=== PATIENT | female | born 1970 | race Caucasian/White ===

== ENCOUNTER 2020-07-03 13:46 | Outpatient (REF) | payer OTHER, SELFPAY | END 2020-07-03 13:47 | disposition home or self-care (01) | LOC: HO.LAB 13:46 | PROVIDERS: Visit Provider Internal Medicine | DX: Z20.828 Contact with and (suspected) exposure to other viral communicable diseases (principal) | CPT/HCPCS: U0003 ==

== ENCOUNTER 2020-09-25 14:34 | Outpatient (REF) | payer OTHER, SELFPAY ==
--- NOTE | 2020-09-25 15:41 | XR_ITS ---
EXAMINATION: BILATERAL KNEE X-RAY CLINICAL INFORMATION: Bilateral arthritis COMPARISON: Previous x-ray February 2019 TECHNIQUE: 4 views each knee FINDINGS: Right: Bone alignment is normal. No fracture or dislocation is seen. There is arthritis at the femoral tibial and patellofemoral joints with joint space narrowing and osteophyte formation. There is lateral subluxation of the patella on the sunrise view. There is a small joint effusion. Left: Bone alignment is normal. No fracture or dislocation is seen. There is arthritis at the femoral tibial and patellofemoral joints with joint space narrowing and osteophyte formation. There is some lateral subluxation of the patella on the sunrise view. There is a joint effusion. XR/XR knee RT 3V IMPRESSION: Bilateral arthritis.
--- NOTE | 2020-09-25 15:41 | XR_ITS ---
EXAMINATION: BILATERAL KNEE X-RAY CLINICAL INFORMATION: Bilateral arthritis COMPARISON: Previous x-ray February 2019 TECHNIQUE: 4 views each knee FINDINGS: Right: Bone alignment is normal. No fracture or dislocation is seen. There is arthritis at the femoral tibial and patellofemoral joints with joint space narrowing and osteophyte formation. There is lateral subluxation of the patella on the sunrise view. There is a small joint effusion. Left: Bone alignment is normal. No fracture or dislocation is seen. There is arthritis at the femoral tibial and patellofemoral joints with joint space narrowing and osteophyte formation. There is some lateral subluxation of the patella on the sunrise view. There is a joint effusion. XR/XR knee LT 3V IMPRESSION: Bilateral arthritis.
[2020-09-25 15:59] LABS: Basophils Absolute Auto 0.1 X10*3/uL (0.0-0.2); Basophils Percent Auto 0.9 % (0-2); Eosinophils Absolute Auto 0.5 X10*3/uL (0.0-0.4); Hematocrit 38.2 % (37-47); Hemoglobin 12.1 g/dl (12.0-16.0); Imm Gran Abs Auto 0.01 X10*3/uL (0.00-0.03); Imm Gran Pct Auto 0.1 % (0.0-0.4); Immature Retic Fraction 12.6 % (3.0-15.9); Lymphocytes Percent Auto 26.5 % (20-40); MANUAL DIFF FLAG NO; Mean Corpuscular HGB Conc 31.7 g/dl (31.0-35.0); Mean Corpuscular Hemoglobin 28.8 pg (27.0-33.0); Mean Platelet Volume 9.5 fL (9.4-12.3); Monocytes Absolute Auto 0.6 X10*3/uL (0.1-1.2); Monocytes Percent Auto 7.7 % (2-11); Neutrophils Absolute Auto 4.4 X10*3/uL (2.0-8.3); Neutrophils Percent Auto 57.8 % (45-73); Platelet Count 356 X10*3/uL (160-400); Red Cell Distribution Width 15.2 % (11.0-16.0); Retic HGB Equivalent 35.2 pg (30.0-35.0); Reticulocyte Percent 1.5 % (0.5-1.8); Reticulocytes Absolute 0.063 X10*6/uL (0.026-0.095); White Blood Count 7.6 X10*3/uL (4.8-10.8)
[2020-09-25 16:28] LABS: Alanine Aminotransferase 24 U/L (0-31); Albumin Level 4.3 g/dL (3.5-5.0); Alkaline Phosphatase 89 U/L (39-117); Anion Gap 14 (12-20); Aspartate Amino Transferase 30 U/L (5-31); Bilirubin Total 0.4 mg/dL (0.0-1.0); Blood Urea Nitrogen 11 mg/dL (9-16); Carbon Dioxide 27 mmol/L (22-29); Chloride 106 mmol/L (96-108); Cholesterol 229 mg/dL; Estimated Glomerular Filt Rate > 60; Glucose Random 86 mg/dL (60-115); HDL Cholesterol 94 mg/dL; Iron 74 mcg/dL (30-160); LDL Cholesterol Calculated 112 mg/dl; Percent Iron Saturation 15 % (15-50); Potassium 4.7 mmol/l (3.3-5.1); Sodium 142 mmol/L (135-145); Total Iron Binding Capacity 494 mcg/dL (228-428); Total Protein 7.6 g/dL (6.5-8.0); Triglycerides 119 mg/dL; Unsaturated Iron Binding 420 ug/dL
[2020-09-25 16:44] LABS: Ferritin 27 ng/mL (10-250); Free T4 (Free Thyroxine) 0.74 ng/dL (0.71-1.85); Thyroid Stimulating Hormone 0.89 uIU/mL (0.32-4.0); Vitamin D 25-OH Total 12.2 ng/mL (>30)
[2020-09-25 17:04] LABS: Folate 14.5 ng/mL (> or = 4.0); Vitamin B12 219 pg/mL (200-900)
[2020-09-28 06:57] LABS: HPV mRNA E6/E7 rflx Not Detected (Not Detected)
== END 2020-09-25 14:35 | disposition home or self-care (01) ==
LOC: HO.LAB 14:34
PROVIDERS: Absent Provider Internal Medicine; PCP Internal Medicine; Visit Provider Obstetrics & Gynecology
DX: Z01.419 Encounter for gynecological examination (general) (routine) without abnormal findings (principal); N91.2 Amenorrhea, unspecified; M25.562 Pain in left knee; M25.561 Pain in right knee
CPT/HCPCS: 36415; 73562; 80053; 80061; 81025; 82306; 82607; 82728; 82746; 83540; 84439; 84443; 85025; 85045; 87624; 88142

== ENCOUNTER → 2020-10-09 11:32 | Outpatient (BNVA) | payer OTHER, SELFPAY | PROVIDERS: PCP Internal Medicine; Visit Provider Obstetrics & Gynecology ==

== ENCOUNTER 2020-10-24 06:20 | Inpatient (IN) | payer OTHER, SELFPAY ==
[2020-10-24] VITALS (8 sets, daily range): BP systolic 111–150; BP diastolic 57–93; PULSE 80–99; RESP 12–22; TEMP 36.6–37; O2SAT 94–99; BMI 50.8
--- NOTE | 2020-10-24 | ECG_ITS ---
Test Reason : OD/SI Blood Pressure : / mmHG Vent. Rate : 096 BPM Atrial Rate : 096 BPM P-R Int : 150 ms QRS Dur : 092 ms QT Int : 358 ms P-R-T Axes : 051 005 036 degrees QTc Int : 452 ms Normal sinus rhythm Normal ECG When compared with ECG of 13-FEB-2020 16:54, No significant change was found Referred By: José Reagan Electronically Signed By:VINH BROOKS MD
[2020-10-24 06:51] LABS: MANUAL DIFF FLAG NO
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
[2020-10-24 06:53] LABS: Basophils Percent Auto 0.7 % (0-2); Eosinophils Absolute Auto 0.3 X10*3/uL (0.0-0.4); Hematocrit 36.3 % (37-47); Hemoglobin 11.8 g/dl (12.0-16.0); Imm Gran Abs Auto 0.01 X10*3/uL (0.00-0.03); Imm Gran Pct Auto 0.2 % (0.0-0.4); Lymphocytes Absolute Auto 3.3 X10*3/uL (1.2-4.9); Lymphocytes Percent Auto 53.6 % (20-40); Mean Corpuscular HGB Conc 32.5 g/dl (31.0-35.0); Mean Corpuscular Hemoglobin 28.9 pg (27.0-33.0); Mean Corpuscular Volume 88.8 fL (80-98); Mean Platelet Volume 8.9 fL (9.4-12.3); Monocytes Absolute Auto 0.7 X10*3/uL (0.1-1.2); Monocytes Percent Auto 10.6 % (2-11); Neutrophils Absolute Auto 1.8 X10*3/uL (2.0-8.3); Neutrophils Percent Auto 29.9 % (45-73); Platelet Count 310 X10*3/uL (160-400); Red Blood Count 4.09 X10*6/uL (4.20-5.50); White Blood Count 6.1 X10*3/uL (4.8-10.8)
--- NOTE | 2020-10-24 06:57 | PC.NURSE ---
PHONE CALL PLACED TO POISION CONTROL AT [phone], ALICIA RIVERA PROVIDE SUPPORTIVE CARE AND MONITOR FOR 6-8 HRS. IF LABS ARE NORMAL NO NEED TO REPEAT LABS/EKG.
[2020-10-24 07:20] LABS: Ethanol 271 mg/dL
[2020-10-24 07:28] LABS: Acetaminophen LAB 9 mcg/mL (<30); Alanine Aminotransferase 24 U/L (0-31); Albumin Level 3.9 g/dL (3.5-5.0); Alkaline Phosphatase 85 U/L (39-117); Anion Gap 15 (12-20); Aspartate Amino Transferase 33 U/L (5-31); Bilirubin Direct < 0.2 mg/dL (0.0-0.5); Bilirubin Total 0.3 mg/dL (0.0-1.0); Blood Urea Nitrogen 11 mg/dL (9-16); Calcium 8.3 mg/dL (8.4-10.2); Carbon Dioxide 22 mmol/L (22-29); Chloride 106 mmol/L (96-108); Estimated Glomerular Filt Rate > 60; Glucose Random 93 mg/dL (60-115); Potassium 4.2 mmol/L (3.3-5.1); Sodium 139 mmol/L (135-145); Total Protein 7.1 g/dL (6.5-8.0)
[2020-10-24 07:40] LABS: Salicylate < 5.0 mg/dL (15-30)
--- NOTE | 2020-10-24 08:54 | PC.NURSE ---
PAPERWORK FAXED/CALLED TO [facility] ([facility]), THIS RN SPOKE TO MATT.
--- NOTE | 2020-10-24 10:54 | PC.NURSE ---
sharath from poison control ([phone]) called [facility] for an update on pt status and states that pt has 3hrs left for eval. pt is a/o x 3 no sob/salomon noted skin pink warm dry speaks in full sentences. amb (i) gait steady to bathroom and btb
[2020-10-24 11:05] LABS: UPreg QC Valid YES; Urine Pregnancy NEGATIVE (NEGATIVE)
[2020-10-24 11:28] LABS: Amphetamine Screen Urine Not Detected (Not Detect); Barbiturates, Urine Not Detected (Not Detect); Benzodiazepines Screen Urine Not Detected (Not Detect); Cannabinoid Screen Urine Not Detected (Not Detect); Cocaine Screen Urine Not Detected (Not Detect); Opiate Screen Urine Not Detected (Not Detect); Phencyclidine Screen Urine Not Detected (Not Detect)
--- NOTE | 2020-10-24 15:21 | PC.NURSE ---
this rn reached out to [facility] spoke with jero ([facility], [phone]) hopefully [facility] will be there at 1600 to see pt. crane (nurse manager marketing communications aware).
[2020-10-25] MEDS: Albuterol Sulfate 90 MCG 8 GM INHALER 2 PUFF INHALE (02:18)
[2020-10-25 02:19] VITALS: PULSE 96; RESP 20; O2SAT 98
[2020-10-25 04:57] LABS: COVID-19 Test Negative (Negative)
[2020-10-25 07:13] VITALS: BP 138/81; PULSE 98; RESP 18; O2SAT 97
--- NOTE | 2020-10-25 08:05 | PC.NURSE ---
Pt is alert, rr even, speaks in full sentences, skin is pwdi, and she is in nad. Plan remains inpt bed search, with a possibility of admission to today.
[2020-10-25 14:40] VITALS: BP 163/9; PULSE 84; RESP 17; O2SAT 97
--- NOTE | 2020-10-25 18:55 | PC.NURSE ---
Report given to Shree in M5.
[2020-10-25] MEDS: hydrOXYzine HCL 25 MG TABLET PO (21:06)
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
[2020-10-25 23:13] VITALS: BP 160/91; PULSE 111; TEMP 37
[2020-10-26] VITALS (7 sets, daily range): BP systolic 129–194; BP diastolic 81–100; PULSE 82–106; RESP 18; TEMP 36.3–36.5; O2SAT 98
[2020-10-26] MEDS: traZODone HCL 50 MG TABLET PO (03:44)
[2020-10-26] MEDS: LORazepam 1 MG TABLET PO ×6 (07:18→21:46)
[2020-10-26] MEDS: Folic Acid 1 MG TABLET PO (08:37)
[2020-10-26] MEDS: medroxyPROGESTERone Acetate 5 MG TABLET 10 MG PO (08:38)
[2020-10-26] MEDS: Multivitamin TABLET 1 TAB PO (08:38)
[2020-10-26] MEDS: Gabapentin 100 MG CAPSULE PO ×4 (08:38→21:46)
[2020-10-26] MEDS: Thiamine HCL 100 MG TABLET PO (08:38)
[2020-10-26] MEDS: Ferrous Sulfate 324 MG TABLET.DR PO (08:55)
[2020-10-26] MEDS: traMADoL HCL 50 MG TABLET PO (08:55)
[2020-10-26] MEDS: Fluticasone/Vilanterol 200/25 BLST.W.DEV 1 PUFF INHALE (09:47)
--- NOTE | 2020-10-26 18:06 | HO.PSYADMNOT ---
HPI Chief Complaint: SI Sources of Information: patient interviewed, chart reviewed and crisis/core team assessment reviewed HPI Subjective Notes: Conditional Voluntary Narrative: Ms. Recio is a 50 year-old woman with hx of MDD who presented to [facility] ED after a suicide attempt on tramadol (unclear dose). Pt reports that she has been experiencing increased depression since July of last year when she from her , her son had major medical problems (unable to walk and apparently dx still unclear), increased stress from work and increase alcohol use. In the ED, her utox was negative. Her BAL was 271. Ms. Recio reports she has struggled with depression for several years. She currently does not have outpatient psychiatric providers. She was prescribed by her PCP Celexa 10mg po daily on July, dose was not adjusted and she just recently started to see OP psychotherapist. She denies hx of VH/AH. She reports poor sleep. She endorses depressed mood, anhedonia, anxious mood. Past Psychiatric History: Inpatient: none previous OP: none currently Past medication trials: celexa, clonidine, trazodone, ativan. Medical Evaluation Reviewed: Yes [facility] Medical History Anemia Anxiety and depression Benign essential hypertension Morbid obesity with BMI of 50.0-59.9, adult Obstructive sleep apnea Osteoarthritis of knees, bilateral Peripheral vascular disease Vitamin D deficiency Surgical History H/O gastric bypass History of breast lift History of section History of cholecystectomy Family History: None Social History: Pt remarried. She has two adult sons. Substance History: Alcohol: drinking 4-6 8onz beers every other day for the past 4-5 months.Pt denies any other substance use including cocaine, opiates, amphetamines. Diagnostics Vital Signs (24Hr): Vital Signs - 24 hr 10/25/20 23:13 10/26/20 06:00 10/26/20 07:18 Temperature 98.6 F 97.7 F Pulse Rate 111 H 84 84 Respiratory Rate 18 Blood Pressure 160/91 H 194/96 H 188/100 H Pulse Oximetry 98 10/26/20 08:28 10/26/20 11:08 Temperature Pulse Rate 91 101 H Respiratory Rate Blood Pressure 179/94 H 129/81 Pulse Oximetry Body Mass Index 50.8 Labs Results: 10/24/20 06:47 10/24/20 06:48 Labs: Laboratory Results - last 48 hr 10/25/20 04:39 COVID-19 ([facility]) Negative COVID-19 Clin Com See Note Meds/Allergies Meds Home Medications Acetaminophen (Acetaminophen 325 Mg Tablet) 650 mg PO Q6H PRN PRN Reason: Headache/Pain Mild Scale (1-3) Last Admin: 10/26/20 21:10 Dose: 650 mg Documented by: Al Hydroxide/Mg Hydroxide (Magnesium Hydrox/Alum Hydrox 30 Ml Oral.Susp) 30 ml PO Q6H PRN PRN Reason: Heartburn/Nausea Albuterol Sulfate (Albuterol Sulfate 90 Mcg 8 Gm Inhaler) 2 puff INHALE Q6H PRN PRN Reason: Wheezing Escitalopram Oxalate (Escitalopram Oxalate 20 Mg Tablet) 20 mg PO DAILY [facility] Last Admin: 10/27/20 08:48 Dose: 20 mg Documented by: Ferrous Sulfate (Ferrous Sulfate 324 Mg Tablet.Dr) 324 mg PO DAILY [facility] Last Admin: 10/27/20 08:48 Dose: 324 mg Documented by: Fluticasone/Vilanterol (Fluticasone/Vilanterol 200/25 Blst.W.Dev) 1 puff INHALE RDAILY [facility] Last Admin: 10/27/20 08:55 Dose: 1 puff Documented by: Folic Acid (Folic Acid 1 Mg Tablet) 1 mg PO DAILY [facility] Last Admin: 10/27/20 08:48 Dose: 1 mg Documented by: Gabapentin (Gabapentin 100 Mg Capsule) 200 mg PO TID [facility] Last Admin: 10/27/20 08:47 Dose: 200 mg Documented by: Hydroxyzine HCl (Hydroxyzine Hcl 25 Mg Tablet) 25 mg PO BEDTIME PRN PRN Reason: Anxiety Last Admin: 10/25/20 21:06 Dose: 25 mg Documented by: Lisinopril (Lisinopril 20 Mg Tablet) 20 mg PO DAILY [facility]; Protocol Last Admin: 10/27/20 08:48 Dose: 20 mg Documented by: Lorazepam (Lorazepam 1 Mg Tablet) 1 mg PO Q4H PRN PRN Reason: Alcohol Withdrawal Last Admin: 10/27/20 04:43 Dose: 1 mg Documented by: Lorazepam (Lorazepam 1 Mg Tablet) 2 mg PO TID [facility] Last Admin: 10/27/20 08:48 Dose: 2 mg Documented by: Magnesium Hydroxide (Milk Of Magnesia 30 Ml Oral.Susp) 30 ml PO DAILY PRN PRN Reason: Constipation Medroxyprogesterone Acetate (Medroxyprogesterone Acetate 5 Mg Tablet) 10 mg PO DAILY [facility] Last Admin: 10/27/20 08:48 Dose: 10 mg Documented by: Melatonin (Melatonin 3 Mg Tablet) 6 mg PO BEDTIME [facility] Last Admin: 10/26/20 21:10 Dose: 6 mg Documented by: Multivitamins/Vitamin C (Multivitamin Tablet) 1 tab PO DAILY [facility] Last Admin: 10/27/20 08:48 Dose: 1 tab Documented by: Thiamine HCl (Thiamine Hcl 100 Mg Tablet) 100 mg PO DAILY [facility] Last Admin: 10/27/20 08:48 Dose: 100 mg Documented by: Tramadol HCl (Tramadol Hcl 50 Mg Tablet) 50 mg PO TID PRN PRN Reason: pain Last Admin: 10/27/20 04:43 Dose: 50 mg Documented by: Trazodone HCl (Trazodone Hcl 50 Mg Tablet) 50 mg PO BEDTIME PRN PRN Reason: Insomnia Last Admin: 10/26/20 03:44 Dose: 50 mg Documented by: Allergies Allergies Allergy/AdvReac Type Severity Reaction Status Date / Time hydromorphone Allergy Unknown Hives Verified 10/09/20 11:34 piperacillin Allergy Unknown hives Verified 10/09/20 11:34 Mental Status Exam Mental Status Exam Narrative: Appearance: casually groomed, fair hygiene, tearful, in NAD Behavior: cooperative Psychomotor: no agitation or retardation noted Speech: clear, normal rate/rhythm/volume, spontaneous TP: linear TC: no signs of psychosis, hopeless/helpless, passive SI Mood: depressed Affect: blunted Insight/judgment: fair x 2. AH/VH: none Delusions: none SI: passive, denies plan or intent HI: none Memory/cog: alert, oriented x 3. grossly intact to conversational testing. Assessment & Plan Assessment & Plan (1) MDD (major depressive disorder), recurrent episode, severe: Status: Acute Qualifiers: Psychotic features: without psychotic features Qualified Code(s): F33.2 - Major depressive disorder, recurrent severe without psychotic features Code(s): F33.2 - Major depressive disorder, recurrent severe without psychotic features Assessment and Plan: 1. In hospital, pt switched to lexapro as celexa is not part of formulary. Will Start Lexapro 10mg po daily, which is equivalent to Celexa 20mg po daily. 2. Obtain collateral information 3. Participate in milieu (2) Alcohol abuse: Status: Acute Code(s): F10.10 - Alcohol abuse, uncomplicated Assessment and Plan: we discussed medications to decrease alcohol cravings. Pt thinkins about it. Patient educated on: diagnosis, medication risk/benefits, substance abuse and medical condition Informed Consent: understands Reason for continued inpatient stay Substantial Risk for: harm to self
[2020-10-26] MEDS: Melatonin 3 MG TABLET 6 MG PO (21:10)
[2020-10-26] MEDS: Acetaminophen 325 MG TABLET 650 MG PO (21:10)
--- NOTE | 2020-10-26 21:33 | PC.NURSE ---
Patient's BP was rechecked before giving HS medications. BP was 174/93 with a pulse of 83 on right upper arm with patient in supine position. Dr. Riggs was notified. New orders were placed. Ativan 1 mg po x 1 now and Gabapentin 100 mg po x 1 now were ordered; scheduled Ativan will be 2 mg tid and Gabapentin will be 200 mg po tid, Lisinopril increased to 15 mg po daily. Will continue to monitor vitals.
[2020-10-27 04:42] VITALS: BP 192/108; PULSE 94
[2020-10-27] MEDS: traMADoL HCL 50 MG TABLET PO ×2 (04:43→16:56)
[2020-10-27] MEDS: LORazepam 1 MG TABLET PO (04:43)
[2020-10-27 06:00] VITALS: BP 166/96; PULSE 99; TEMP 36.9
--- NOTE | 2020-10-27 07:37 | HO.PSYCHPN ---
Subjective Subjective Date of Service: 10/27/20 Reason For Visit: SI Interim History: VS noted for elevated BP. Tremors. Sx of ETOH WD noted. Will increase Loraz /Gabapentin and Lisinopril. Ct q4 while awake. No SI Medication Compliance: Yes Side effects from medications: No Attending Groups: Yes Review of Systems Constitutional: Reports no additional constitutional complaints Eyes: Reports no additional eye complaints Denies dizziness Cardiovascular: Reports no additional cardiovascular complaints, Denies chest pain, Denies chest pain with activity, Denies epigastric discomfort, Denies edema and Denies dyspnea Respiratory: Reports as per HPI and Denies dyspnea Gastrointestinal: Reports no additional gastrointestinal complaints, Denies constipation, Denies fecal incontinence and Denies diarrhea Musculoskeletal: Reports no additional musculoskeletal complaints Skin/Breast: Denies rash Reports system reviewed and no additional complaints, except as documented, Denies dizziness and Denies Sensory deficit (Neuro) Psychiatric: Denies anxiety Mental Status Exam Mental Status Exam Narrative: Appearance: casually groomed, fair hygiene, tearful, in NAD Behavior: cooperative Psychomotor: no agitation or retardation noted Speech: clear, normal rate/rhythm/volume, spontaneous TP: linear TC: no signs of psychosis, hopeless/helpless, passive SI Mood: depressed Affect: blunted Insight/judgment: fair x 2. AH/VH: none Delusions: none SI: passive, denies plan or intent HI: none Memory/cog: alert, oriented x 3. grossly intact to conversational testing. Patient Appearance: Well Grooomed Abnormal Motor Activity Signs and Symptoms: Agitation and Tremors Judgement: Fair Diagnostics Vital Signs (24Hr): Vital Signs - 24 hr 10/26/20 08:28 10/26/20 11:08 10/26/20 18:00 Temperature 97.4 F Pulse Rate 91 101 H 106 H Blood Pressure 179/94 H 129/81 142/86 H 10/26/20 20:58 10/26/20 22:22 10/27/20 04:42 Temperature Pulse Rate 83 82 94 Blood Pressure 174/92 H 171/85 H 192/108 H 10/27/20 06:00 Temperature 98.4 F Pulse Rate 99 Blood Pressure 166/96 H Body Mass Index 50.8 Labs Results: 10/24/20 06:47 10/24/20 06:48 Medications Medications Current Medications Generic Name Dose Route Start Last Admin Trade Name Freq PRN Reason Stop Dose Admin Acetaminophen 650 mg 10/25/20 19:12 10/26/20 21:10 Acetaminophen 325 Mg Tablet PO 650 mg Q6H PRN Administration Headache/Pain Mild Scale (1-3) Al Hydroxide/Mg Hydroxide 30 ml 10/25/20 19:12 Magnesium Hydrox/Alum Hydrox 30 Ml Oral.Susp PO Q6H PRN Heartburn/Nausea Albuterol Sulfate 2 puff 10/25/20 20:17 Albuterol Sulfate 90 Mcg 8 Gm Inhaler INHALE Q6H PRN Wheezing Escitalopram Oxalate 20 mg 10/27/20 09:00 Escitalopram Oxalate 20 Mg Tablet PO DAILY [facility] Ferrous Sulfate 324 mg 10/26/20 09:00 10/26/20 08:55 Ferrous Sulfate 324 Mg Tablet.Dr PO 324 mg DAILY [facility] Administration Fluticasone/Vilanterol 1 puff 10/26/20 08:00 10/26/20 09:47 Fluticasone/Vilanterol 200/25 Blst.W.Dev INHALE 1 puff RDAILY [facility] Administration Folic Acid 1 mg 10/26/20 09:00 10/26/20 08:37 Folic Acid 1 Mg Tablet PO 1 mg DAILY [facility] Administration Gabapentin 200 mg 10/26/20 21:15 10/26/20 21:50 Gabapentin 100 Mg Capsule PO Not Given TID [facility]UAN Hydroxyzine HCl 25 mg 10/25/20 19:12 10/25/20 21:06 Hydroxyzine Hcl 25 Mg Tablet PO 25 mg BEDTIME PRN Administration Anxiety Lisinopril 15 mg 10/27/20 09:00 10/27/20 04:42 Lisinopril 5 Mg Tablet PO 15 mg DAILY [facility] Administration Protocol Lorazepam 1 mg 10/26/20 06:59 10/27/20 04:43 Lorazepam 1 Mg Tablet PO 1 mg Q4H PRN Administration Alcohol Withdrawal Lorazepam 2 mg 10/26/20 21:15 10/26/20 21:51 Lorazepam 1 Mg Tablet PO Not Given TID [facility] Magnesium Hydroxide 30 ml 10/25/20 19:12 Milk Of Magnesia 30 Ml Oral.Susp PO DAILY PRN Constipation Medroxyprogesterone Acetate 10 mg 10/26/20 09:00 10/26/20 08:38 Medroxyprogesterone Acetate 5 Mg Tablet PO 10 mg DAILY [facility] Administration Melatonin 6 mg 10/26/20 21:00 10/26/20 21:10 Melatonin 3 Mg Tablet PO 6 mg BEDTIME [facility] Administration Multivitamins/Vitamin C 1 tab 10/26/20 09:00 10/26/20 08:38 Multivitamin Tablet PO 1 tab DAILY [facility] Administration Thiamine HCl 100 mg 10/26/20 07:00 10/26/20 08:47 Thiamine Hcl 100 Mg Tablet PO Not Given DAILY [facility] Tramadol HCl 50 mg 10/26/20 07:05 10/27/20 04:43 Tramadol Hcl 50 Mg Tablet PO 50 mg TID PRN Administration pain Trazodone HCl 50 mg 10/25/20 19:12 10/26/20 03:44 Trazodone Hcl 50 Mg Tablet PO 50 mg BEDTIME PRN Administration Insomnia Allergies Allergies Allergy/AdvReac Type Severity Reaction Status Date / Time hydromorphone Allergy Unknown Hives Verified 10/09/20 11:34 piperacillin Allergy Unknown hives Verified 10/09/20 11:34 Assessment & Plan Assessment & Plan (1) MDD (major depressive disorder), recurrent episode, severe: Qualifiers: Psychotic features: without psychotic features Qualified Code(s): F33.2 - Major depressive disorder, recurrent severe without psychotic features Status: Acute Code(s): F33.2 - Major depressive disorder, recurrent severe without psychotic features Assessment and Plan: 1. In hospital, pt switched to lexapro as celexa is not part of formulary. Will Start Lexapro 10mg po daily, which is equivalent to Celexa 20mg po daily. 2. Obtain collateral information 3. Participate in milieu (2) Alcohol abuse: Status: Acute Code(s): F10.10 - Alcohol abuse, uncomplicated Assessment and Plan: we discussed medications to decrease alcohol cravings. Pt thinkins about it. Continue Lorz/Gabapentin. Monitor WD Sx Greater than 50% of the session was spent on counseling and/or coordination of care Reason for contiued inpatient stay Substantial Risk for: harm to self and med/psych decompensation
[2020-10-27] MEDS: Gabapentin 100 MG CAPSULE 200 MG PO ×3 (08:47→21:47)
[2020-10-27] MEDS: Folic Acid 1 MG TABLET PO (08:48)
[2020-10-27] MEDS: Thiamine HCL 100 MG TABLET PO (08:48)
[2020-10-27] MEDS: medroxyPROGESTERone Acetate 5 MG TABLET 10 MG PO (08:48)
[2020-10-27] MEDS: Multivitamin TABLET 1 TAB PO (08:48)
[2020-10-27] MEDS: LORazepam 1 MG TABLET 2 MG PO ×3 (08:48→21:48)
[2020-10-27] MEDS: Escitalopram Oxalate 20 MG TABLET PO (08:48)
[2020-10-27] MEDS: Ferrous Sulfate 324 MG TABLET.DR PO (08:48)
[2020-10-27] MEDS: Fluticasone/Vilanterol 200/25 BLST.W.DEV 1 PUFF INHALE (08:55)
[2020-10-27 17:02] VITALS: BP 142/78; PULSE 83; O2SAT 98
[2020-10-27] MEDS: Melatonin 3 MG TABLET 6 MG PO (21:48)
[2020-10-27] MEDS: Acetaminophen 325 MG TABLET 650 MG PO (21:52)
[2020-10-28 05:24] VITALS: BP 164/94; PULSE 98
[2020-10-28] MEDS: LORazepam 1 MG TABLET PO (05:24)
[2020-10-28] MEDS: traMADoL HCL 50 MG TABLET PO (05:24)
[2020-10-28 06:30] VITALS: BP 164/94; PULSE 98; RESP 18; TEMP 36.2; O2SAT 98
[2020-10-28 06:40] VITALS: BP 159/95; PULSE 91; RESP 18; O2SAT 96
[2020-10-28] MEDS: medroxyPROGESTERone Acetate 5 MG TABLET 10 MG PO (08:38)
[2020-10-28] MEDS: Gabapentin 100 MG CAPSULE 200 MG PO ×3 (08:38→20:07)
[2020-10-28] MEDS: LORazepam 1 MG TABLET 2 MG PO ×3 (08:38→20:07)
[2020-10-28] MEDS: Folic Acid 1 MG TABLET PO (08:38)
[2020-10-28] MEDS: Fluticasone/Vilanterol 200/25 BLST.W.DEV 1 PUFF INHALE (08:38)
[2020-10-28] MEDS: Escitalopram Oxalate 20 MG TABLET PO (08:38)
[2020-10-28] MEDS: Multivitamin TABLET 1 TAB PO (08:39)
[2020-10-28] MEDS: Thiamine HCL 100 MG TABLET PO (08:39)
[2020-10-28] MEDS: Metoprolol Tartrate 25 MG TABLET PO ×2 (08:39→20:07)
[2020-10-28] MEDS: Ferrous Sulfate 324 MG TABLET.DR PO (08:39)
--- NOTE | 2020-10-28 10:44 | P.PNPSI_ITS ---
Subjective Subjective Date of Service: 10/28/20 Reason For Visit: SI Interim History: 10/28: Patient continues to be depressed tearful stated that she is overwhelmed with stressors at work with her son and also going through a separation. No SI as she feels safe here. Continues to exhibit tremors elevated vitals noted. Case discussed with Dr. Reagan. We agreed to add beta- rachana and monitor. Patient would benefit from a diuretic. Need for beta- rachana should be reviewed after patient completes alcohol withdrawal. 10/27: VS noted for elevated BP. Tremors. Sx of ETOH WD noted. Will increase Loraz /Gabapentin and Lisinopril. Ct q4 while awake. No SI Review of Systems Constitutional: Reports no additional constitutional complaints Eyes: Reports no additional eye complaints Denies dizziness Cardiovascular: Reports no additional cardiovascular complaints, Denies chest pain, Denies chest pain with activity, Denies epigastric discomfort, Denies edema and Denies dyspnea Respiratory: Reports as per HPI and Denies dyspnea Gastrointestinal: Reports no additional gastrointestinal complaints, Denies constipation, Denies fecal incontinence and Denies diarrhea Musculoskeletal: Reports no additional musculoskeletal complaints Skin/Breast: Denies rash Reports system reviewed and no additional complaints, except as documented, Denies dizziness and Denies Sensory deficit (Neuro) Psychiatric: Denies anxiety Mental Status Exam Mental Status Exam Narrative: Appearance: casually groomed, fair hygiene, tearful, in NAD Behavior: cooperative Psychomotor: no agitation or retardation noted Speech: clear, normal rate/rhythm/volume, spontaneous TP: linear TC: no signs of psychosis, hopeless/helpless, passive SI Mood: depressed Affect: blunted Insight/judgment: fair x 2. AH/VH: none Delusions: none SI: passive, denies plan or intent HI: none Memory/cog: alert, oriented x 3. grossly intact to conversational testing. Patient Appearance: Well Grooomed Diagnostics Vital Signs (24Hr): Vital Signs - 24 hr 10/27/20 17:02 10/28/20 05:24 10/28/20 06:30 Temperature 97.2 F Pulse Rate 83 98 98 Respiratory Rate 18 Blood Pressure 142/78 H 164/94 H 164/94 H Pulse Oximetry 98 98 10/28/20 06:40 Temperature Pulse Rate 91 Respiratory Rate 18 Blood Pressure 159/95 H Pulse Oximetry 96 Body Mass Index 50.8 Labs Results: 10/24/20 06:47 10/24/20 06:48 Medications Medications Current Medications Generic Name Dose Route Start Last Admin Trade Name Freq PRN Reason Stop Dose Admin Acetaminophen 650 mg 10/25/20 19:12 10/27/20 21:52 Acetaminophen 325 Mg Tablet PO 650 mg Q6H PRN Administration Headache/Pain Mild Scale (1-3) Al Hydroxide/Mg Hydroxide 30 ml 10/25/20 19:12 Magnesium Hydrox/Alum Hydrox 30 Ml Oral.Susp PO Q6H PRN Heartburn/Nausea Albuterol Sulfate 2 puff 10/25/20 20:17 Albuterol Sulfate 90 Mcg 8 Gm Inhaler INHALE Q6H PRN Wheezing Escitalopram Oxalate 20 mg 10/27/20 09:00 10/28/20 08:38 Escitalopram Oxalate 20 Mg Tablet PO 20 mg DAILY [facility] Administration Ferrous Sulfate 324 mg 10/26/20 09:00 10/28/20 08:39 Ferrous Sulfate 324 Mg Tablet.Dr PO 324 mg DAILY [facility] Administration Fluticasone/Vilanterol 1 puff 10/26/20 08:00 10/28/20 08:38 Fluticasone/Vilanterol 200/25 Blst.W.Dev INHALE 1 puff RDAILY [facility] Administration Folic Acid 1 mg 10/26/20 09:00 10/28/20 08:38 Folic Acid 1 Mg Tablet PO 1 mg DAILY [facility] Administration Gabapentin 200 mg 10/26/20 21:15 10/28/20 08:38 Gabapentin 100 Mg Capsule PO 200 mg TID [facility] Administration Hydroxyzine HCl 25 mg 10/25/20 19:12 10/25/20 21:06 Hydroxyzine Hcl 25 Mg Tablet PO 25 mg BEDTIME PRN Administration Anxiety Lisinopril 20 mg 10/27/20 09:00 10/28/20 05:24 Lisinopril 20 Mg Tablet PO 20 mg DAILY [facility] Administration Protocol Lorazepam 1 mg 10/26/20 06:59 10/28/20 05:24 Lorazepam 1 Mg Tablet PO 1 mg Q4H PRN Administration Alcohol Withdrawal Lorazepam 2 mg 10/26/20 21:15 10/28/20 08:38 Lorazepam 1 Mg Tablet PO 2 mg TID [facility] Administration Magnesium Hydroxide 30 ml 10/25/20 19:12 Milk Of Magnesia 30 Ml Oral.Susp PO DAILY PRN Constipation Medroxyprogesterone Acetate 10 mg 10/26/20 09:00 10/28/20 08:38 Medroxyprogesterone Acetate 5 Mg Tablet PO 10 mg DAILY [facility] Administration Melatonin 6 mg 10/26/20 21:00 10/27/20 21:48 Melatonin 3 Mg Tablet PO 6 mg BEDTIME [facility] Administration Metoprolol Tartrate 25 mg 10/28/20 09:00 10/28/20 08:39 Metoprolol Tartrate 25 Mg Tablet PO 25 mg BID [facility]UAN Administration Protocol Multivitamins/Vitamin C 1 tab 10/26/20 09:00 10/28/20 08:39 Multivitamin Tablet PO 1 tab DAILY [facility] Administration Thiamine HCl 100 mg 10/26/20 07:00 10/28/20 08:39 Thiamine Hcl 100 Mg Tablet PO 100 mg DAILY [facility] Administration Tramadol HCl 50 mg 10/26/20 07:05 10/28/20 05:24 Tramadol Hcl 50 Mg Tablet PO 50 mg TID PRN Administration pain Trazodone HCl 50 mg 10/25/20 19:12 10/26/20 03:44 Trazodone Hcl 50 Mg Tablet PO 50 mg BEDTIME PRN Administration Insomnia Allergies Allergies Allergy/AdvReac Type Severity Reaction Status Date / Time hydromorphone Allergy Unknown Hives Verified 10/09/20 11:34 piperacillin Allergy Unknown hives Verified 10/09/20 11:34 Assessment & Plan Assessment & Plan (1) MDD (major depressive disorder), recurrent episode, severe: Qualifiers: Psychotic features: without psychotic features Qualified Code(s): F33.2 - Major depressive disorder, recurrent severe without psychotic features Status: Acute Code(s): F33.2 - Major depressive disorder, recurrent severe without psychotic features Assessment and Plan: 1. In hospital, pt switched to lexapro as celexa is not part of formulary. Will Start Lexapro 10mg po daily, which is equivalent to Celexa 20mg po daily. 2. Obtain collateral information 3. Participate in milieu (2) Alcohol abuse: Status: Acute Code(s): F10.10 - Alcohol abuse, uncomplicated Assessment and Plan: we discussed medications to decrease alcohol cravings. Pt thinkins about it. Continue Lorz/Gabapentin. Monitor WD Sx. Add metoprolol 25 b.i.d. Greater than 50% of the session was spent on counseling and/or coordination of care Reason for contiued inpatient stay Substantial Risk for: harm to self and med/psych decompensation
[2020-10-28 17:12] VITALS: BP 169/91; PULSE 87; RESP 16; TEMP 36.4; O2SAT 97
[2020-10-28] MEDS: Melatonin 3 MG TABLET 6 MG PO (20:06)
[2020-10-28] MEDS: traZODone HCL 50 MG TABLET PO (20:07)
[2020-10-28] MEDS: hydrOXYzine HCL 25 MG TABLET PO (20:07)
[2020-10-29] VITALS (7 sets, daily range): BP systolic 119–183; BP diastolic 63–90; PULSE 73–99; RESP 18; TEMP 36.5–36.8; O2SAT 92–97
[2020-10-29] MEDS: Metoprolol Tartrate 25 MG TABLET PO ×2 (05:33→22:57)
[2020-10-29] MEDS: LORazepam 1 MG TABLET PO (05:34)
[2020-10-29] MEDS: Multivitamin TABLET 1 TAB PO (08:20)
[2020-10-29] MEDS: Gabapentin 100 MG CAPSULE 200 MG PO ×3 (08:20→22:58)
[2020-10-29] MEDS: Thiamine HCL 100 MG TABLET PO (08:20)
[2020-10-29] MEDS: Folic Acid 1 MG TABLET PO (08:21)
[2020-10-29] MEDS: Ferrous Sulfate 324 MG TABLET.DR PO (08:21)
[2020-10-29] MEDS: Escitalopram Oxalate 20 MG TABLET PO (08:21)
[2020-10-29] MEDS: LORazepam 1 MG TABLET 2 MG PO ×3 (08:21→22:57)
[2020-10-29] MEDS: medroxyPROGESTERone Acetate 5 MG TABLET 10 MG PO (08:21)
--- NOTE | 2020-10-29 17:19 | HO.PSYCHPN ---
Subjective Subjective Date of Service: 10/29/20 Reason For Visit: SI Subjective Notes: Conditional Voluntary Interim History: Pt continues to present as depressed, hopeless/helpless. She continues to endorse passive suicidal ideation but denies any plan or intent to hurt herself. She has been mostly in bed. SHe reports difficulty staying asleep. She continues on ativan for alcohol withdrawal. Medication Compliance: Yes Side effects from medications: No Attending Groups: Intermittent Review of Systems Constitutional: Reports no additional constitutional complaints Eyes: Reports no additional eye complaints Denies dizziness Cardiovascular: Reports no additional cardiovascular complaints, Denies chest pain, Denies chest pain with activity, Denies epigastric discomfort, Denies edema and Denies dyspnea Respiratory: Reports as per HPI and Denies dyspnea Gastrointestinal: Reports no additional gastrointestinal complaints, Denies constipation, Denies fecal incontinence and Denies diarrhea Musculoskeletal: Reports no additional musculoskeletal complaints Skin/Breast: Denies rash Reports system reviewed and no additional complaints, except as documented, Denies dizziness and Denies Sensory deficit (Neuro) Psychiatric: Denies anxiety Mental Status Exam Mental Status Exam Narrative: Appearance: casually groomed, fair hygiene, tearful, in NAD Behavior: cooperative Psychomotor: no agitation or retardation noted Speech: clear, normal rate/rhythm/volume, spontaneous TP: linear TC: no signs of psychosis, hopeless/helpless, passive SI Mood: depressed Affect: blunted Insight/judgment: fair x 2. AH/VH: none Delusions: none SI: passive, denies plan or intent HI: none Memory/cog: alert, oriented x 3. grossly intact to conversational testing. Diagnostics Vital Signs (24Hr): Vital Signs - 24 hr 10/29/20 05:33 10/29/20 05:34 10/29/20 06:30 Temperature 98.0 F Pulse Rate 73 73 74 Respiratory Rate 18 Blood Pressure 183/90 H 183/90 H 134/79 Pulse Oximetry 97 10/29/20 14:41 Temperature Pulse Rate 91 Respiratory Rate Blood Pressure 119/74 Pulse Oximetry 92 Body Mass Index 50.8 Labs Results: 10/24/20 06:47 10/24/20 06:48 Medications Medications Current Medications Generic Name Dose Route Start Last Admin Trade Name Freq PRN Reason Stop Dose Admin Acetaminophen 650 mg 10/25/20 19:12 10/27/20 21:52 Acetaminophen 325 Mg Tablet PO 650 mg Q6H PRN Administration Headache/Pain Mild Scale (1-3) Al Hydroxide/Mg Hydroxide 30 ml 10/25/20 19:12 Magnesium Hydrox/Alum Hydrox 30 Ml Oral.Susp PO Q6H PRN Heartburn/Nausea Albuterol Sulfate 2 puff 10/25/20 20:17 Albuterol Sulfate 90 Mcg 8 Gm Inhaler INHALE Q6H PRN Wheezing Escitalopram Oxalate 20 mg 10/27/20 09:00 10/29/20 08:21 Escitalopram Oxalate 20 Mg Tablet PO 20 mg DAILY JUAN Administration Ferrous Sulfate 324 mg 10/26/20 09:00 10/29/20 08:21 Ferrous Sulfate 324 Mg Tablet. PO 324 mg DAILY JUAN Administration Fluticasone/Vilanterol 1 puff 10/26/20 08:00 10/29/20 08:19 Fluticasone/Vilanterol 200/25 Blst.W.Dev INHALE Not Given RDAILY JUAN Folic Acid 1 mg 10/26/20 09:00 10/29/20 08:21 Folic Acid 1 Mg Tablet PO 1 mg DAILY JUAN Administration Gabapentin 200 mg 10/26/20 21:15 10/29/20 14:39 Gabapentin 100 Mg Capsule PO 200 mg TID JUAN Administration Hydroxyzine HCl 25 mg 10/25/20 19:12 10/28/20 20:07 Hydroxyzine Hcl 25 Mg Tablet PO 25 mg BEDTIME PRN Administration Anxiety Lisinopril 20 mg 10/27/20 09:00 10/29/20 05:34 Lisinopril 20 Mg Tablet PO 20 mg DAILY JUAN Administration Protocol Lorazepam 1 mg 10/26/20 06:59 10/29/20 05:34 Lorazepam 1 Mg Tablet PO 1 mg Q4H PRN Administration Alcohol Withdrawal Lorazepam 2 mg 10/26/20 21:15 10/29/20 14:39 Lorazepam 1 Mg Tablet PO 2 mg TID JUAN Administration Magnesium Hydroxide 30 ml 10/25/20 19:12 Milk Of Magnesia 30 Ml Oral.Susp PO DAILY PRN Constipation Medroxyprogesterone Acetate 10 mg 10/26/20 09:00 10/29/20 08:21 Medroxyprogesterone Acetate 5 Mg Tablet PO 10 mg DAILY JUAN Administration Melatonin 6 mg 10/26/20 21:00 10/28/20 20:06 Melatonin 3 Mg Tablet PO 6 mg BEDTIME JUAN Administration Metoprolol Tartrate 25 mg 10/28/20 09:00 10/29/20 05:33 Metoprolol Tartrate 25 Mg Tablet PO 25 mg BID JUAN Administration Protocol Multivitamins/Vitamin C 1 tab 10/26/20 09:00 10/29/20 08:20 Multivitamin Tablet PO 1 tab DAILY JUAN Administration Thiamine HCl 100 mg 10/26/20 07:00 10/29/20 08:20 Thiamine Hcl 100 Mg Tablet PO 100 mg DAILY JUAN Administration Tramadol HCl 50 mg 10/26/20 07:05 10/28/20 05:24 Tramadol Hcl 50 Mg Tablet PO 50 mg TID PRN Administration pain Trazodone HCl 50 mg 10/25/20 19:12 10/28/20 20:07 Trazodone Hcl 50 Mg Tablet PO 50 mg BEDTIME PRN Administration Insomnia Allergies Allergies Allergy/AdvReac Type Severity Reaction Status Date / Time hydromorphone Allergy Unknown Hives Verified 10/09/20 11:34 piperacillin Allergy Unknown hives Verified 10/09/20 11:34 Assessment & Plan Assessment & Plan (1) MDD (major depressive disorder), recurrent episode, severe: Qualifiers: Psychotic features: without psychotic features Qualified Code(s): F33.2 - Major depressive disorder, recurrent severe without psychotic features Status: Acute Code(s): F33.2 - Major depressive disorder, recurrent severe without psychotic features Assessment and Plan: 1. In hospital, pt switched to lexapro as celexa is not part of formulary. 2. Continue Lexapro 20mg po daily. 2. Obtain collateral information 3. Participate in milieu (2) Alcohol abuse: Status: Acute Code(s): F10.10 - Alcohol abuse, uncomplicated Assessment and Plan: we discussed medications to decrease alcohol cravings. Pt thinkins about it. Continue Lorz/Gabapentin. Monitor WD Sx. Add metoprolol 25 b.i.d. Greater than 50% of the session was spent on counseling and/or coordination of care Reason for contiued inpatient stay Substantial Risk for: harm to self
[2020-10-29] MEDS: Melatonin 3 MG TABLET 6 MG PO (22:57)
[2020-10-29] MEDS: traZODone HCL 50 MG TABLET PO (22:57)
[2020-10-30 06:05] VITALS: BP 146/83; PULSE 72; RESP 16; TEMP 37; O2SAT 97
[2020-10-30 08:17] VITALS: BP 146/83; PULSE 72
[2020-10-30] MEDS: Metoprolol Tartrate 25 MG TABLET PO ×2 (08:17→21:57)
[2020-10-30] MEDS: Thiamine HCL 100 MG TABLET PO (08:17)
[2020-10-30] MEDS: medroxyPROGESTERone Acetate 5 MG TABLET 10 MG PO (08:18)
[2020-10-30] MEDS: Ferrous Sulfate 324 MG TABLET.DR PO (08:18)
[2020-10-30] MEDS: Gabapentin 100 MG CAPSULE 200 MG PO ×3 (08:18→21:57)
[2020-10-30] MEDS: Multivitamin TABLET 1 TAB PO (08:18)
[2020-10-30] MEDS: Folic Acid 1 MG TABLET PO (08:18)
[2020-10-30] MEDS: Escitalopram Oxalate 20 MG TABLET PO (08:19)
[2020-10-30] MEDS: Fluticasone/Vilanterol 200/25 BLST.W.DEV 1 PUFF INHALE (08:19)
[2020-10-30] MEDS: LORazepam 1 MG TABLET 2 MG PO ×2 (08:19→14:41)
--- NOTE | 2020-10-30 16:28 | HO.PSYCHPN ---
Subjective Subjective Date of Service: 10/30/20 Reason For Visit: SI Interim History: Pt has been more visible in the unit. She reports less symptoms of withdrawal including less tremors, BP under control, it appears she was having some VH at night. She continues to endorse depressed mood, hopeless/helpless, suicidal ideation without a plan. She is very tearful, does not think things will get better for her and feels as if she is a burden to family. Review of Systems Constitutional: Reports no additional constitutional complaints Eyes: Reports no additional eye complaints Denies dizziness Cardiovascular: Reports no additional cardiovascular complaints, Denies chest pain, Denies chest pain with activity, Denies epigastric discomfort, Denies edema and Denies dyspnea Respiratory: Reports as per HPI and Denies dyspnea Gastrointestinal: Reports no additional gastrointestinal complaints, Denies constipation, Denies fecal incontinence and Denies diarrhea Musculoskeletal: Reports no additional musculoskeletal complaints Skin/Breast: Denies rash Reports system reviewed and no additional complaints, except as documented, Denies dizziness and Denies Sensory deficit (Neuro) Psychiatric: Denies anxiety Mental Status Exam Mental Status Exam Narrative: Appearance: casually groomed, fair hygiene, tearful, in NAD Behavior: cooperative Psychomotor: no agitation or retardation noted Speech: clear, normal rate/rhythm/volume, spontaneous TP: linear TC: no signs of psychosis, hopeless/helpless, passive SI Mood: depressed Affect: blunted Insight/judgment: fair x 2. AH/VH: none Delusions: none SI: passive, denies plan or intent HI: none Memory/cog: alert, oriented x 3. grossly intact to conversational testing. Diagnostics Vital Signs (24Hr): Vital Signs - 24 hr 10/29/20 20:00 10/29/20 22:57 10/30/20 06:05 Temperature 97.7 F 98.6 F Pulse Rate 86 86 72 Respiratory Rate 16 Blood Pressure 138/80 138/80 146/83 H Pulse Oximetry 97 10/30/20 08:17 Temperature Pulse Rate 72 Respiratory Rate Blood Pressure 146/83 H Pulse Oximetry Body Mass Index 50.8 Labs Results: 10/24/20 06:47 10/24/20 06:48 Medications Medications Current Medications Generic Name Dose Route Start Last Admin Trade Name Freq PRN Reason Stop Dose Admin Acetaminophen 650 mg 10/25/20 19:12 10/27/20 21:52 Acetaminophen 325 Mg Tablet PO 650 mg Q6H PRN Administration Headache/Pain Mild Scale (1-3) Al Hydroxide/Mg Hydroxide 30 ml 10/25/20 19:12 Magnesium Hydrox/Alum Hydrox 30 Ml Oral.Susp PO Q6H PRN Heartburn/Nausea Albuterol Sulfate 2 puff 10/25/20 20:17 Albuterol Sulfate 90 Mcg 8 Gm Inhaler INHALE Q6H PRN Wheezing Escitalopram Oxalate 20 mg 10/27/20 09:00 10/30/20 08:19 Escitalopram Oxalate 20 Mg Tablet PO 20 mg DAILY JUAN Administration Ferrous Sulfate 324 mg 10/26/20 09:00 10/30/20 08:18 Ferrous Sulfate 324 Mg Tablet.Dr PO 324 mg DAILY JUAN Administration Fluticasone/Vilanterol 1 puff 10/26/20 08:00 10/30/20 08:19 Fluticasone/Vilanterol 200/25 Blst.W.Dev INHALE 1 puff RDAILY JUAN Administration Folic Acid 1 mg 10/26/20 09:00 10/30/20 08:18 Folic Acid 1 Mg Tablet PO 1 mg DAILY JUAN Administration Gabapentin 200 mg 10/26/20 21:15 10/30/20 14:41 Gabapentin 100 Mg Capsule PO 200 mg TID JUAN Administration Hydroxyzine HCl 25 mg 10/25/20 19:12 10/28/20 20:07 Hydroxyzine Hcl 25 Mg Tablet PO 25 mg BEDTIME PRN Administration Anxiety Lisinopril 20 mg 10/27/20 09:00 10/30/20 08:18 Lisinopril 20 Mg Tablet PO 20 mg DAILY JUAN Administration Protocol Lorazepam 1 mg 10/26/20 06:59 10/29/20 05:34 Lorazepam 1 Mg Tablet PO 1 mg Q4H PRN Administration Alcohol Withdrawal Lorazepam 1 mg 10/30/20 21:00 Lorazepam 1 Mg Tablet PO TID JUAN Magnesium Hydroxide 30 ml 10/25/20 19:12 Milk Of Magnesia 30 Ml Oral.Susp PO DAILY PRN Constipation Medroxyprogesterone Acetate 10 mg 10/26/20 09:00 10/30/20 08:18 Medroxyprogesterone Acetate 5 Mg Tablet PO 10 mg DAILY JUAN Administration Melatonin 6 mg 10/26/20 21:00 10/29/20 22:57 Melatonin 3 Mg Tablet PO 6 mg BEDTIME JUAN Administration Metoprolol Tartrate 25 mg 10/28/20 09:00 10/30/20 08:17 Metoprolol Tartrate 25 Mg Tablet PO 25 mg BID JUAN Administration Protocol Multivitamins/Vitamin C 1 tab 10/26/20 09:00 10/30/20 08:18 Multivitamin Tablet PO 1 tab DAILY JUAN Administration Thiamine HCl 100 mg 10/26/20 07:00 10/30/20 08:17 Thiamine Hcl 100 Mg Tablet PO 100 mg DAILY JUAN Administration Tramadol HCl 50 mg 10/26/20 07:05 10/28/20 05:24 Tramadol Hcl 50 Mg Tablet PO 50 mg TID PRN Administration pain Trazodone HCl 50 mg 10/25/20 19:12 10/29/20 22:57 Trazodone Hcl 50 Mg Tablet PO 50 mg BEDTIME PRN Administration Insomnia Allergies Allergies Allergy/AdvReac Type Severity Reaction Status Date / Time hydromorphone Allergy Unknown Hives Verified 10/09/20 11:34 piperacillin Allergy Unknown hives Verified 10/09/20 11:34 Assessment & Plan Assessment & Plan (1) MDD (major depressive disorder), recurrent episode, severe: Qualifiers: Psychotic features: without psychotic features Qualified Code(s): F33.2 - Major depressive disorder, recurrent severe without psychotic features Status: Acute Code(s): F33.2 - Major depressive disorder, recurrent severe without psychotic features Assessment and Plan: 1. Continue Lexapro 20mg po daily. 2. Obtain collateral information 3. Participate in milieu (2) Alcohol abuse: Status: Acute Code(s): F10.10 - Alcohol abuse, uncomplicated Assessment and Plan: 1. lower ativan from 2mg po TID to 1mg po TID. continue gabapentin Greater than 50% of the session was spent on counseling and/or coordination of care Reason for contiued inpatient stay Substantial Risk for: harm to self
[2020-10-30] MEDS: traMADoL HCL 50 MG TABLET PO (21:56)
[2020-10-30 21:57] VITALS: BP 181/91; PULSE 97
[2020-10-30] MEDS: Melatonin 3 MG TABLET 6 MG PO (21:57)
[2020-10-30] MEDS: LORazepam 1 MG TABLET PO (21:57)
[2020-10-30 22:16] VITALS: BP 181/91; PULSE 97; TEMP 36.4
[2020-10-30] MEDS: hydrOXYzine HCL 25 MG TABLET PO (23:16)
[2020-10-31] MEDS: traZODone HCL 50 MG TABLET PO ×2 (00:06→03:17)
[2020-10-31 01:06] VITALS: BP 154/77; PULSE 62; RESP 18; O2SAT 97
[2020-10-31 06:40] VITALS: BP 154/79; PULSE 72; RESP 20; TEMP 37.2; O2SAT 96
[2020-10-31] MEDS: Ferrous Sulfate 324 MG TABLET.DR PO (08:27)
[2020-10-31] MEDS: Thiamine HCL 100 MG TABLET PO (08:27)
[2020-10-31] MEDS: Escitalopram Oxalate 20 MG TABLET PO (08:27)
[2020-10-31] MEDS: LORazepam 1 MG TABLET PO ×3 (08:27→22:00)
[2020-10-31] MEDS: medroxyPROGESTERone Acetate 5 MG TABLET 10 MG PO (08:27)
[2020-10-31 08:28] VITALS: BP 154/79; PULSE 72
[2020-10-31] MEDS: Multivitamin TABLET 1 TAB PO (08:28)
[2020-10-31] MEDS: Metoprolol Tartrate 25 MG TABLET PO ×2 (08:28→22:00)
[2020-10-31] MEDS: Folic Acid 1 MG TABLET PO (08:29)
[2020-10-31] MEDS: Gabapentin 100 MG CAPSULE 200 MG PO ×2 (08:29→14:08)
[2020-10-31] MEDS: Fluticasone/Vilanterol 200/25 BLST.W.DEV 1 PUFF INHALE (08:29)
[2020-10-31 17:22] VITALS: BP 145/76; PULSE 72; RESP 18; TEMP 36.4; O2SAT 97
--- NOTE | 2020-10-31 19:06 | HO.PSYCHPN ---
Subjective Subjective Date of Service: 10/31/20 Reason For Visit: SI Interim History: Pt has been slightly more visible in the unit and has attended some groups. She continues to have episodes of SBP in 180's after ativan decrease yesterday, most likely related to alcohol withdrawal. She also continues to endorse depressed mood, suicidal ideaiton feeling very hopeless/helpeless. We discussed adding seroquel for sleep. She agreed to d/c tramadol for pain and try naltrexon for alcohol cravings. SHe reports frequently waking up at night. Review of Systems Constitutional: Reports no additional constitutional complaints Eyes: Reports no additional eye complaints Denies dizziness Cardiovascular: Reports no additional cardiovascular complaints, Denies chest pain, Denies chest pain with activity, Denies epigastric discomfort, Denies edema and Denies dyspnea Respiratory: Reports as per HPI and Denies dyspnea Gastrointestinal: Reports no additional gastrointestinal complaints, Denies constipation, Denies fecal incontinence and Denies diarrhea Musculoskeletal: Reports no additional musculoskeletal complaints Skin/Breast: Denies rash Reports system reviewed and no additional complaints, except as documented, Denies dizziness and Denies Sensory deficit (Neuro) Psychiatric: Denies anxiety Mental Status Exam Mental Status Exam Narrative: Appearance: casually groomed, fair hygiene, tearful, in NAD Behavior: cooperative Psychomotor: no agitation or retardation noted Speech: clear, normal rate/rhythm/volume, spontaneous TP: linear TC: no signs of psychosis, hopeless/helpless, passive SI Mood: depressed Affect: blunted Insight/judgment: fair x 2. AH/VH: none Delusions: none SI: passive, denies plan or intent HI: none Memory/cog: alert, oriented x 3. grossly intact to conversational testing. Diagnostics Vital Signs (24Hr): Vital Signs - 24 hr 10/30/20 21:57 10/30/20 22:16 10/31/20 01:06 Temperature 97.6 F Pulse Rate 97 97 62 Respiratory Rate 18 Blood Pressure 181/91 H 181/91 H 154/77 H Pulse Oximetry 97 10/31/20 06:40 10/31/20 08:28 10/31/20 17:22 Temperature 99.0 F 97.6 F Pulse Rate 72 72 72 Respiratory Rate 20 18 Blood Pressure 154/79 H 154/79 H 145/76 H Pulse Oximetry 96 97 Body Mass Index 50.8 Labs Results: 10/24/20 06:47 10/24/20 06:48 Medications Medications Current Medications Generic Name Dose Route Start Last Admin Trade Name Freq PRN Reason Stop Dose Admin Acetaminophen 650 mg 10/25/20 19:12 10/27/20 21:52 Acetaminophen 325 Mg Tablet PO 650 mg Q6H PRN Administration Headache/Pain Mild Scale (1-3) Al Hydroxide/Mg Hydroxide 30 ml 10/25/20 19:12 Magnesium Hydrox/Alum Hydrox 30 Ml Oral.Susp PO Q6H PRN Heartburn/Nausea Albuterol Sulfate 2 puff 10/25/20 20:17 Albuterol Sulfate 90 Mcg 8 Gm Inhaler INHALE Q6H PRN Wheezing Escitalopram Oxalate 20 mg 10/27/20 09:00 10/31/20 08:27 Escitalopram Oxalate 20 Mg Tablet PO 20 mg DAILY JUAN Administration Ferrous Sulfate 324 mg 10/26/20 09:00 10/31/20 08:27 Ferrous Sulfate 324 Mg Tablet.Dr PO 324 mg DAILY JUAN Administration Fluticasone/Vilanterol 1 puff 10/26/20 08:00 10/31/20 08:29 Fluticasone/Vilanterol 200/25 Blst.W.Dev INHALE 1 puff RDAILY JUAN Administration Folic Acid 1 mg 10/26/20 09:00 10/31/20 08:29 Folic Acid 1 Mg Tablet PO 1 mg DAILY JUAN Administration Gabapentin 300 mg 10/31/20 21:00 Gabapentin 300 Mg Capsule PO TID JUAN Hydroxyzine HCl 25 mg 10/25/20 19:12 10/30/20 23:16 Hydroxyzine Hcl 25 Mg Tablet PO 25 mg BEDTIME PRN Administration Anxiety Lisinopril 20 mg 10/27/20 09:00 10/31/20 08:28 Lisinopril 20 Mg Tablet PO 20 mg DAILY JUAN Administration Protocol Lorazepam 1 mg 10/30/20 21:00 10/31/20 14:08 Lorazepam 1 Mg Tablet PO 1 mg TID JUAN Administration Lorazepam 1 mg 10/31/20 07:58 Lorazepam 1 Mg Tablet PO Q4H PRN Alcohol Withdrawal Magnesium Hydroxide 30 ml 10/25/20 19:12 Milk Of Magnesia 30 Ml Oral.Susp PO DAILY PRN Constipation Medroxyprogesterone Acetate 10 mg 10/26/20 09:00 10/31/20 08:27 Medroxyprogesterone Acetate 5 Mg Tablet PO 10 mg DAILY JUAN Administration Melatonin 6 mg 10/26/20 21:00 10/30/20 21:57 Melatonin 3 Mg Tablet PO 6 mg BEDTIME JUAN Administration Metoprolol Tartrate 25 mg 10/28/20 09:00 10/31/20 08:28 Metoprolol Tartrate 25 Mg Tablet PO 25 mg BID JUAN Administration Protocol Multivitamins/Vitamin C 1 tab 10/26/20 09:00 10/31/20 08:28 Multivitamin Tablet PO 1 tab DAILY JUAN Administration Quetiapine Fumarate 50 mg 10/31/20 21:00 Quetiapine Fumarate 50 Mg Tablet PO BEDTIME JUAN Thiamine HCl 100 mg 10/26/20 07:00 10/31/20 08:27 Thiamine Hcl 100 Mg Tablet PO 100 mg DAILY JUAN Administration Allergies Allergies Allergy/AdvReac Type Severity Reaction Status Date / Time hydromorphone Allergy Unknown Hives Verified 10/09/20 11:34 piperacillin Allergy Unknown hives Verified 10/09/20 11:34 Assessment & Plan Assessment & Plan (1) MDD (major depressive disorder), recurrent episode, severe: Qualifiers: Psychotic features: without psychotic features Qualified Code(s): F33.2 - Major depressive disorder, recurrent severe without psychotic features Status: Acute Code(s): F33.2 - Major depressive disorder, recurrent severe without psychotic features Assessment and Plan: 1. Continue Lexapro 20mg po daily. 2. Start Seroquel 50mg po qhs on 10/31 3. Participate in milieu (2) Alcohol abuse: Status: Acute Code(s): F10.10 - Alcohol abuse, uncomplicated Assessment and Plan: 1. lower ativan from 2mg po TID to 1mg po TID. INcrease gabapentin to 300mg po TID. 2. Will start naltrexon- pt agreed to stop tramadol for pain. Greater than 50% of the session was spent on counseling and/or coordination of care Reason for contiued inpatient stay Substantial Risk for: harm to self
[2020-10-31] MEDS: Gabapentin 300 MG CAPSULE PO (21:59)
[2020-10-31 22:00] VITALS: BP 164/72; PULSE 70
[2020-10-31] MEDS: QUEtiapine Fumarate 50 MG TABLET PO (22:00)
[2020-10-31] MEDS: Melatonin 3 MG TABLET 6 MG PO (22:00)
[2020-11-01 06:00] VITALS: BP 185/93; PULSE 81; TEMP 36.4; O2SAT 97
[2020-11-01 08:57] VITALS: BP 185/93; PULSE 81
[2020-11-01] MEDS: Escitalopram Oxalate 20 MG TABLET PO (08:57)
[2020-11-01] MEDS: Metoprolol Tartrate 25 MG TABLET PO ×2 (08:57→20:42)
[2020-11-01] MEDS: medroxyPROGESTERone Acetate 5 MG TABLET 10 MG PO (08:57)
[2020-11-01] MEDS: Thiamine HCL 100 MG TABLET PO (08:57)
[2020-11-01] MEDS: Gabapentin 300 MG CAPSULE PO ×3 (08:57→20:42)
[2020-11-01] MEDS: Multivitamin TABLET 1 TAB PO (08:57)
[2020-11-01] MEDS: Ferrous Sulfate 324 MG TABLET.DR PO (08:57)
[2020-11-01] MEDS: Folic Acid 1 MG TABLET PO (08:57)
[2020-11-01] MEDS: LORazepam 1 MG TABLET PO ×3 (08:57→20:41)
[2020-11-01] MEDS: Fluticasone/Vilanterol 200/25 BLST.W.DEV 1 PUFF INHALE (08:58)
[2020-11-01] MEDS: Ibuprofen 600 MG TABLET PO ×2 (09:23→19:14)
[2020-11-01 10:27] VITALS: BMI 50.4
[2020-11-01 12:21] VITALS: BP 179/87; PULSE 125; RESP 18
[2020-11-01] MEDS: Acetaminophen 325 MG TABLET 650 MG PO (14:43)
[2020-11-01 14:47] VITALS: BP 166/87; PULSE 117
[2020-11-01] MEDS: cloNIDine HCL 0.1 MG TABLET PO (14:47)
[2020-11-01 18:00] VITALS: BP 177/84; PULSE 65; TEMP 36.1
--- NOTE | 2020-11-01 18:40 | P.PNPSI_ITS ---
Subjective Subjective Date of Service: 11/02/20 Reason For Visit: SI Interim History: Pt continues to endorse depressed mood, hopeless/helpless. Her BP continues to be elevated at times 170's. We discussed adding clonidine for anxiety/ BP. Pt continues to endorse intermittent suicidal ideation with plan to OD. She reports feeling restless at times. She has heard voices, that she is aware others can't hear, specially at night, appears as a withdrawal symptom. Review of Systems Constitutional: Reports no additional constitutional complaints Eyes: Reports no additional eye complaints Denies dizziness Cardiovascular: Reports no additional cardiovascular complaints, Denies chest pain, Denies chest pain with activity, Denies epigastric discomfort, Denies edema and Denies dyspnea Respiratory: Reports as per HPI and Denies dyspnea Gastrointestinal: Reports no additional gastrointestinal complaints, Denies constipation, Denies fecal incontinence and Denies diarrhea Musculoskeletal: Reports no additional musculoskeletal complaints Skin/Breast: Denies rash Reports system reviewed and no additional complaints, except as documented, D enies dizziness and Denies Sensory deficit (Neuro) Psychiatric: Denies anxiety Mental Status Exam Mental Status Exam Narrative: Appearance: casually groomed, fair hygiene, tearful, in NAD Behavior: cooperative Psychomotor: no agitation or retardation noted Speech: clear, normal rate/rhythm/volume, spontaneous TP: linear TC: no signs of psychosis, hopeless/helpless, passive SI Mood: depressed Affect: blunted Insight/judgment: fair x 2. AH/VH: none Delusions: none SI: passive, denies plan or intent HI: none Memory/cog: alert, oriented x 3. grossly intact to conversational testing. Diagnostics Vital Signs (24Hr): Vital Signs - 24 hr 10/31/20 22:00 11/01/20 06:00 11/01/20 08:57 Temperature 97.5 F Pulse Rate 70 81 81 Respiratory Rate Blood Pressure 164/72 H 185/93 H 185/93 H Pulse Oximetry 97 11/01/20 12:21 11/01/20 14:47 Temperature Pulse Rate 125 H 117 H Respiratory Rate 18 Blood Pressure 179/87 H 166/87 H Pulse Oximetry Body Mass Index 50.4 Labs Results: 10/24/20 06:47 10/24/20 06:48 Medications Medications Current Medications Generic Name Dose Route Start Last Admin Trade Name Freq PRN Reason Stop Dose Admin Acetaminophen 650 mg 10/25/20 19:12 11/01/20 14:43 Acetaminophen 325 Mg Tablet PO 650 mg Q6H PRN Administration Headache/Pain Mild Scale (1-3) Al Hydroxide/Mg Hydroxide 30 ml 10/25/20 19:12 Magnesium Hydrox/Alum Hydrox 30 Ml Oral.Susp PO Q6H PRN Heartburn/Nausea Albuterol Sulfate 2 puff 10/25/20 20:17 Albuterol Sulfate 90 Mcg 8 Gm Inhaler INHALE Q6H PRN Wheezing Clonidine HCl 0.1 mg 11/01/20 14:25 11/01/20 14:47 Clonidine Hcl 0.1 Mg Tablet PO 0.1 mg DAILY JUAN Administration Protocol Escitalopram Oxalate 20 mg 10/27/20 09:00 11/01/20 08:57 Escitalopram Oxalate 20 Mg Tablet PO 20 mg DAILY JUAN Administration Ferrous Sulfate 324 mg 10/26/20 09:00 11/01/20 08:57 Ferrous Sulfate 324 Mg Tablet. PO 324 mg DAILY JUAN Administration Fluticasone/Vilanterol 1 puff 10/26/20 08:00 11/01/20 08:58 Fluticasone/Vilanterol 200/25 Blst.W.Dev INHALE 1 puff RDAILY JUAN Administration Folic Acid 1 mg 10/26/20 09:00 11/01/20 08:57 Folic Acid 1 Mg Tablet PO 1 mg DAILY JUAN Administration Gabapentin 300 mg 10/31/20 21:00 11/01/20 14:43 Gabapentin 300 Mg Capsule PO 300 mg TID JUAN Administration Hydroxyzine HCl 25 mg 10/25/20 19:12 10/30/20 23:16 Hydroxyzine Hcl 25 Mg Tablet PO 25 mg BEDTIME PRN Administration Anxiety Ibuprofen 600 mg 10/31/20 19:10 11/01/20 09:23 Ibuprofen 600 Mg Tablet PO 600 mg Q6H PRN Administration Pain, Moderate (Pain Scale 4-6 Lisinopril 20 mg 10/27/20 09:00 11/01/20 08:57 Lisinopril 20 Mg Tablet PO 20 mg DAILY JUAN Administration Protocol Lorazepam 1 mg 10/30/20 21:00 11/01/20 14:43 Lorazepam 1 Mg Tablet PO 1 mg TID JUAN Administration Lorazepam 1 mg 10/31/20 07:58 Lorazepam 1 Mg Tablet PO Q4H PRN Alcohol Withdrawal Magnesium Hydroxide 30 ml 10/25/20 19:12 Milk Of Magnesia 30 Ml Oral.Susp PO DAILY PRN Constipation Medroxyprogesterone Acetate 10 mg 10/26/20 09:00 11/01/20 08:57 Medroxyprogesterone Acetate 5 Mg Tablet PO 10 mg DAILY JUAN Administration Melatonin 6 mg 10/26/20 21:00 10/31/20 22:00 Melatonin 3 Mg Tablet PO 6 mg BEDTIME JUAN Administration Metoprolol Tartrate 25 mg 10/28/20 09:00 11/01/20 08:57 Metoprolol Tartrate 25 Mg Tablet PO 25 mg BID JUAN Administration Protocol Multivitamins/Vitamin C 1 tab 10/26/20 09:00 11/01/20 08:57 Multivitamin Tablet PO 1 tab DAILY JUAN Administration Quetiapine Fumarate 50 mg 10/31/20 21:00 10/31/20 22:00 Quetiapine Fumarate 50 Mg Tablet PO 50 mg BEDTIME JUAN Administration Thiamine HCl 100 mg 10/26/20 07:00 11/01/20 08:57 Thiamine Hcl 100 Mg Tablet PO 100 mg DAILY JUAN Administration Allergies Allergies Allergy/AdvReac Type Severity Reaction Status Date / Time hydromorphone Allergy Unknown Hives Verified 10/09/20 11:34 piperacillin Allergy Unknown hives Verified 10/09/20 11:34 Assessment & Plan Assessment & Plan (1) MDD (major depressive disorder), recurrent episode, severe: Qualifiers: Psychotic features: without psychotic features Qualified Code(s): F33.2 - Major depressive disorder, recurrent severe without psychotic features Status: Acute Code(s): F33.2 - Major depressive disorder, recurrent severe without psychotic features Assessment and Plan: 1. Continue Lexapro 20mg po daily. 2. Start Seroquel 50mg po qhs on 10/31 3. Participate in milieu (2) Alcohol abuse: Status: Acute Code(s): F10.10 - Alcohol abuse, uncomplicated Assessment and Plan: 1. lower ativan from 2mg po TID to 1mg po TID. INcrease gabapentin to 300mg po TID. 2. Will start naltrexon- pt agreed to stop tramadol for pain. Greater than 50% of the session was spent on counseling and/or coordination of care Reason for contiued inpatient stay Substantial Risk for: harm to self
[2020-11-01] MEDS: Melatonin 3 MG TABLET 6 MG PO (20:41)
[2020-11-01 20:42] VITALS: BP 164/84; PULSE 99
[2020-11-01] MEDS: QUEtiapine Fumarate 50 MG TABLET PO (20:42)
[2020-11-02 05:15] VITALS: BP 158/86; PULSE 70
[2020-11-02] MEDS: Metoprolol Tartrate 25 MG TABLET PO ×2 (05:15→20:36)
[2020-11-02] MEDS: Ibuprofen 600 MG TABLET PO ×2 (05:17→18:23)
[2020-11-02] MEDS: Acetaminophen 325 MG TABLET 650 MG PO ×2 (06:33→18:22)
[2020-11-02 06:37] VITALS: BP 130/80
[2020-11-02] MEDS: Ferrous Sulfate 324 MG TABLET.DR PO (08:56)
[2020-11-02] MEDS: Thiamine HCL 100 MG TABLET PO (08:57)
[2020-11-02] MEDS: Multivitamin TABLET 1 TAB PO (08:57)
[2020-11-02] MEDS: Gabapentin 300 MG CAPSULE PO ×3 (08:57→20:11)
[2020-11-02] MEDS: Folic Acid 1 MG TABLET PO (08:57)
[2020-11-02 08:58] VITALS: BP 130/66; PULSE 82
[2020-11-02] MEDS: Escitalopram Oxalate 20 MG TABLET PO (08:58)
[2020-11-02] MEDS: cloNIDine HCL 0.1 MG TABLET PO (08:58)
[2020-11-02] MEDS: Fluticasone/Vilanterol 200/25 BLST.W.DEV 1 PUFF INHALE (08:59)
[2020-11-02] MEDS: medroxyPROGESTERone Acetate 5 MG TABLET 10 MG PO (09:03)
[2020-11-02] MEDS: LORazepam 1 MG TABLET PO ×3 (09:04→20:11)
--- NOTE | 2020-11-02 17:16 | P.PNPSI_ITS ---
Subjective Subjective Date of Service: 11/03/20 Reason For Visit: SI Subjective Notes: Conditional Voluntary Interim History: Pt reports sleeping better. She reports less AH that she was hearing, mostly at night related to alcohol withdrawal. She continues to endorse depressed mood, anhedonia, hopeless. She has been more visible in the unit. She reports passive suicidal ideation but denies any plan or intent. Medication Compliance: Yes Side effects from medications: No Attending Groups: Intermittent Review of Systems Constitutional: Reports no additional constitutional complaints Eyes: Reports no additional eye complaints Denies dizziness Cardiovascular: Reports no additional cardiovascular complaints, Denies chest pain, Denies chest pain with activity, Denies epigastric discomfort, Denies edema and Denies dyspnea Respiratory: Reports as per HPI and Denies dyspnea Gastrointestinal: Reports no additional gastrointestinal complaints, Denies constipation, Denies fecal incontinence and Denies diarrhea Musculoskeletal: Reports no additional musculoskeletal complaints Skin/Breast: Denies rash Reports system reviewed and no additional complaints, except as documented, Denies dizziness and Denies Sensory deficit (Neuro) Psychiatric: Denies anxiety Mental Status Exam Mental Status Exam Narrative: Appearance: casually groomed, fair hygiene, tearful, in NAD Behavior: cooperative Psychomotor: no agitation or retardation noted Speech: clear, normal rate/rhythm/volume, spontaneous TP: linear TC: no signs of psychosis, hopeless/helpless, passive SI Mood: depressed Affect: blunted Insight/judgment: fair x 2. AH/VH: none Delusions: none SI: passive, denies plan or intent HI: none Memory/cog: alert, oriented x 3. grossly intact to conversational testing. Diagnostics Vital Signs (24Hr): Vital Signs - 24 hr 11/01/20 18:00 11/01/20 20:42 11/02/20 05:15 Temperature 97 F Pulse Rate 65 99 70 Blood Pressure 177/84 H 164/84 H 158/86 H 11/02/20 06:37 11/02/20 08:58 Temperature Pulse Rate 82 Blood Pressure 130/80 130/66 Body Mass Index 50.4 Labs Results: 10/24/20 06:47 10/24/20 06:48 Medications Medications Current Medications Generic Name Dose Route Start Last Admin Trade Name Freq PRN Reason Stop Dose Admin Acetaminophen 650 mg 10/25/20 19:12 11/02/20 06:33 Acetaminophen 325 Mg Tablet PO 650 mg Q6H PRN Administration Headache/Pain Mild Scale (1-3) Al Hydroxide/Mg Hydroxide 30 ml 10/25/20 19:12 Magnesium Hydrox/Alum Hydrox 30 Ml Oral.Susp PO Q6H PRN Heartburn/Nausea Albuterol Sulfate 2 puff 10/25/20 20:17 Albuterol Sulfate 90 Mcg 8 Gm Inhaler INHALE Q6H PRN Wheezing Clonidine HCl 0.1 mg 11/01/20 14:25 11/02/20 08:58 Clonidine Hcl 0.1 Mg Tablet PO 0.1 mg DAILY JUAN Administration Protocol Escitalopram Oxalate 20 mg 10/27/20 09:00 11/02/20 08:58 Escitalopram Oxalate 20 Mg Tablet PO 20 mg DAILY JUAN Administration Ferrous Sulfate 324 mg 10/26/20 09:00 11/02/20 08:56 Ferrous Sulfate 324 Mg Tablet.Dr PO 324 mg DAILY JUAN Administration Fluticasone/Vilanterol 1 puff 10/26/20 08:00 11/02/20 08:59 Fluticasone/Vilanterol 200/25 Blst.W.Dev INHALE 1 puff RDAILY JUAN Administration Folic Acid 1 mg 10/26/20 09:00 11/02/20 08:57 Folic Acid 1 Mg Tablet PO 1 mg DAILY JUAN Administration Gabapentin 300 mg 10/31/20 21:00 11/02/20 14:37 Gabapentin 300 Mg Capsule PO 300 mg TID JUAN Administration Hydroxyzine HCl 25 mg 10/25/20 19:12 10/30/20 23:16 Hydroxyzine Hcl 25 Mg Tablet PO 25 mg BEDTIME PRN Administration Anxiety Ibuprofen 600 mg 10/31/20 19:10 11/02/20 05:17 Ibuprofen 600 Mg Tablet PO 600 mg Q6H PRN Administration Pain, Moderate (Pain Scale 4-6 Lisinopril 20 mg 10/27/20 09:00 11/02/20 05:15 Lisinopril 20 Mg Tablet PO 20 mg DAILY [facility] Administration Protocol Lorazepam 1 mg 10/30/20 21:00 11/02/20 14:37 Lorazepam 1 Mg Tablet PO 1 mg TID JUAN Administration Lorazepam 1 mg 10/31/20 07:58 Lorazepam 1 Mg Tablet PO Q4H PRN Alcohol Withdrawal Magnesium Hydroxide 30 ml 10/25/20 19:12 Milk Of Magnesia 30 Ml Oral.Susp PO DAILY PRN Constipation Medroxyprogesterone Acetate 10 mg 10/26/20 09:00 11/02/20 09:03 Medroxyprogesterone Acetate 5 Mg Tablet PO 10 mg DAILY JUAN Administration Melatonin 6 mg 10/26/20 21:00 11/01/20 20:41 Melatonin 3 Mg Tablet PO 6 mg BEDTIME JUAN Administration Metoprolol Tartrate 25 mg 10/28/20 09:00 11/02/20 05:15 Metoprolol Tartrate 25 Mg Tablet PO 25 mg BID JUAN Administration Protocol Multivitamins/Vitamin C 1 tab 10/26/20 09:00 11/02/20 08:57 Multivitamin Tablet PO 1 tab DAILY JUAN Administration Naltrexone HCl 25 mg 11/03/20 09:00 Naltrexone Hcl 50 Mg Tablet PO DAILY JUAN Quetiapine Fumarate 50 mg 10/31/20 21:00 11/01/20 20:42 Quetiapine Fumarate 50 Mg Tablet PO 50 mg BEDTIME JUAN Administration Thiamine HCl 100 mg 10/26/20 07:00 11/02/20 08:57 Thiamine Hcl 100 Mg Tablet PO 100 mg DAILY JUAN Administration Allergies Allergies Allergy/AdvReac Type Severity Reaction Status Date / Time hydromorphone Allergy Unknown Hives Verified 10/09/20 11:34 piperacillin Allergy Unknown hives Verified 10/09/20 11:34 Assessment & Plan Assessment & Plan (1) MDD (major depressive disorder), recurrent episode, severe: Qualifiers: Psychotic features: without psychotic features Qualified Code(s): F33.2 - Major depressive disorder, recurrent severe without psychotic features Status: Acute Code(s): F33.2 - Major depressive disorder, recurrent severe without psychotic features Assessment and Plan: 1. Continue Lexapro 20mg po daily. 2. Start Seroquel 50mg po qhs on 10/31 3. Participate in milieu (2) Alcohol abuse: Status: Acute Code(s): F10.10 - Alcohol abuse, uncomplicated Assessment and Plan: 1. lower ativan from 2mg po TID to 1mg po TID. INcrease gabapentin to 300mg po TID. 2. Will start naltrexon- pt agreed to stop tramadol for pain. Greater than 50% of the session was spent on counseling and/or coordination of care Reason for contiued inpatient stay Substantial Risk for: harm to self
[2020-11-02 18:00] VITALS: BP 140/82; PULSE 80; TEMP 36.5
[2020-11-02 19:51] VITALS: BP 156/78; PULSE 76
[2020-11-02] MEDS: QUEtiapine Fumarate 50 MG TABLET PO (20:11)
[2020-11-02] MEDS: Melatonin 3 MG TABLET 6 MG PO (20:11)
[2020-11-02 20:36] VITALS: BP 156/78; PULSE 76
[2020-11-03 06:20] VITALS: BP 152/70; PULSE 65; RESP 20; TEMP 37.1; O2SAT 95
[2020-11-03 08:46] VITALS: BP 133/72; PULSE 82
[2020-11-03] MEDS: Metoprolol Tartrate 25 MG TABLET PO ×2 (08:46→21:56)
[2020-11-03] MEDS: medroxyPROGESTERone Acetate 5 MG TABLET 10 MG PO (08:46)
[2020-11-03] MEDS: Multivitamin TABLET 1 TAB PO (08:46)
[2020-11-03] MEDS: LORazepam 1 MG TABLET PO ×3 (08:46→21:55)
[2020-11-03] MEDS: Gabapentin 300 MG CAPSULE PO ×3 (08:46→21:56)
[2020-11-03] MEDS: Thiamine HCL 100 MG TABLET PO (08:46)
[2020-11-03] MEDS: Folic Acid 1 MG TABLET PO (08:46)
[2020-11-03] MEDS: cloNIDine HCL 0.1 MG TABLET PO (08:46)
[2020-11-03] MEDS: Ferrous Sulfate 324 MG TABLET.DR PO (08:46)
[2020-11-03] MEDS: Naltrexone HCl 50 MG TABLET 25 MG PO (08:46)
[2020-11-03] MEDS: Escitalopram Oxalate 20 MG TABLET PO (08:46)
[2020-11-03] MEDS: Fluticasone/Vilanterol 200/25 BLST.W.DEV 1 PUFF INHALE (08:49)
--- NOTE | 2020-11-03 19:55 | HO.PSYCHPN ---
Subjective Subjective Date of Service: 11/03/20 Reason For Visit: SI Subjective Notes: Conditional Voluntary Interim History: pt gradually improving on lexapro gabapention Mental Status Exam Mental Status Exam Narrative: Appearance: casually groomed, fair hygiene, tearful, in NAD Behavior: cooperative Psychomotor: no agitation or retardation noted Speech: clear, normal rate/rhythm/volume, spontaneous TP: linear TC: no signs of psychosis, hopeless/helpless, passive SI Mood: depressed Affect: blunted Insight/judgment: fair x 2. AH/VH: none Delusions: none SI: passive, denies plan or intent HI: none Memory/cog: alert, oriented x 3. grossly intact to conversational testing. Diagnostics Vital Signs (24Hr): Vital Signs - 24 hr 11/02/20 20:36 11/03/20 06:20 11/03/20 08:46 Temperature 98.8 F Pulse Rate 76 65 82 Respiratory Rate 20 Blood Pressure 156/78 H 152/70 H 133/72 Pulse Oximetry 95 Body Mass Index 50.4 Labs Results: 10/24/20 06:47 10/24/20 06:48 Medications Medications Current Medications Generic Name Dose Route Start Last Admin Trade Name Freq PRN Reason Stop Dose Admin Acetaminophen 650 mg 10/25/20 19:12 11/02/20 18:22 Acetaminophen 325 Mg Tablet PO 650 mg Q6H PRN Administration Headache/Pain Mild Scale (1-3) Al Hydroxide/Mg Hydroxide 30 ml 10/25/20 19:12 Magnesium Hydrox/Alum Hydrox 30 Ml Oral.Susp PO Q6H PRN Heartburn/Nausea Albuterol Sulfate 2 puff 10/25/20 20:17 Albuterol Sulfate 90 Mcg 8 Gm Inhaler INHALE Q6H PRN Wheezing Clonidine HCl 0.1 mg 11/01/20 14:25 11/03/20 08:46 Clonidine Hcl 0.1 Mg Tablet PO 0.1 mg DAILY JUAN Administration Protocol Escitalopram Oxalate 20 mg 10/27/20 09:00 11/03/20 08:46 Escitalopram Oxalate 20 Mg Tablet PO 20 mg DAILY JUAN Administration Ferrous Sulfate 324 mg 10/26/20 09:00 11/03/20 08:46 Ferrous Sulfate 324 Mg Tablet. PO 324 mg DAILY JUAN Administration Fluticasone/Vilanterol 1 puff 10/26/20 08:00 11/03/20 08:49 Fluticasone/Vilanterol 200/25 Blst.W.Dev INHALE 1 puff RDAILY JUAN Administration Folic Acid 1 mg 10/26/20 09:00 11/03/20 08:46 Folic Acid 1 Mg Tablet PO 1 mg DAILY JUAN Administration Gabapentin 300 mg 10/31/20 21:00 11/03/20 15:03 Gabapentin 300 Mg Capsule PO 300 mg TID JUAN Administration Hydroxyzine HCl 25 mg 10/25/20 19:12 10/30/20 23:16 Hydroxyzine Hcl 25 Mg Tablet PO 25 mg BEDTIME PRN Administration Anxiety Ibuprofen 600 mg 10/31/20 19:10 11/02/20 18:23 Ibuprofen 600 Mg Tablet PO 600 mg Q6H PRN Administration Pain, Moderate (Pain Scale 4-6 Lisinopril 20 mg 10/27/20 09:00 11/03/20 08:46 Lisinopril 20 Mg Tablet PO 20 mg DAILY JUAN Administration Protocol Lorazepam 1 mg 10/30/20 21:00 11/03/20 15:03 Lorazepam 1 Mg Tablet PO 1 mg TID JUAN Administration Lorazepam 1 mg 10/31/20 07:58 Lorazepam 1 Mg Tablet PO Q4H PRN Alcohol Withdrawal Magnesium Hydroxide 30 ml 10/25/20 19:12 Milk Of Magnesia 30 Ml Oral.Susp PO DAILY PRN Constipation Medroxyprogesterone Acetate 10 mg 10/26/20 09:00 11/03/20 08:46 Medroxyprogesterone Acetate 5 Mg Tablet PO 10 mg DAILY JUAN Administration Melatonin 6 mg 10/26/20 21:00 11/02/20 20:11 Melatonin 3 Mg Tablet PO 6 mg BEDTIME JUAN Administration Metoprolol Tartrate 25 mg 10/28/20 09:00 11/03/20 08:46 Metoprolol Tartrate 25 Mg Tablet PO 25 mg BID JUAN Administration Protocol Multivitamins/Vitamin C 1 tab 10/26/20 09:00 11/03/20 08:46 Multivitamin Tablet PO 1 tab DAILY JUAN Administration Naltrexone HCl 25 mg 11/03/20 09:00 11/03/20 08:46 Naltrexone Hcl 50 Mg Tablet PO 25 mg DAILY JUAN Administration Quetiapine Fumarate 50 mg 10/31/20 21:00 11/02/20 20:11 Quetiapine Fumarate 50 Mg Tablet PO 50 mg BEDTIME JUAN Administration Thiamine HCl 100 mg 10/26/20 07:00 03/06/21 08:46 Thiamine Hcl 100 Mg Tablet PO 100 mg DAILY JUAN Administration Allergies Allergies Allergy/AdvReac Type Severity Reaction Status Date / Time hydromorphone Allergy Unknown Hives Verified 10/09/20 11:34 piperacillin Allergy Unknown hives Verified 10/09/20 11:34 Assessment & Plan Assessment & Plan (1) MDD (major depressive disorder), recurrent episode, severe: Qualifiers: Psychotic features: without psychotic features Qualified Code(s): F33.2 - Major depressive disorder, recurrent severe without psychotic features Status: Acute Code(s): F33.2 - Major depressive disorder, recurrent severe without psychotic features Assessment and Plan: cont tx plan encourage sobriety naltrexone Greater than 50% of the session was spent on counseling and/or coordination of care Reason for contiued inpatient stay Substantial Risk for: harm to self and rapid decompensation
[2020-11-03] MEDS: Melatonin 3 MG TABLET 6 MG PO (21:55)
[2020-11-03 21:56] VITALS: BP 155/74; PULSE 78
[2020-11-03] MEDS: QUEtiapine Fumarate 50 MG TABLET PO (21:56)
[2020-11-03 22:00] VITALS: BP 155/74; PULSE 78; TEMP 36.4
[2020-11-03] MEDS: Ibuprofen 600 MG TABLET PO (22:01)
[2020-11-03] MEDS: Acetaminophen 325 MG TABLET 650 MG PO (22:01)
[2020-11-04 06:00] VITALS: BP 156/74; PULSE 57; RESP 16; TEMP 37.2; O2SAT 96
[2020-11-04] MEDS: Naltrexone HCl 50 MG TABLET 25 MG PO (08:46)
[2020-11-04] MEDS: Escitalopram Oxalate 20 MG TABLET PO (08:46)
[2020-11-04] MEDS: Multivitamin TABLET 1 TAB PO (08:46)
[2020-11-04] MEDS: medroxyPROGESTERone Acetate 5 MG TABLET 10 MG PO (08:46)
[2020-11-04] MEDS: Ferrous Sulfate 324 MG TABLET.DR PO (08:46)
[2020-11-04 08:47] VITALS: BP 151/78; PULSE 67
[2020-11-04] MEDS: Gabapentin 300 MG CAPSULE PO ×3 (08:47→21:24)
[2020-11-04] MEDS: Metoprolol Tartrate 25 MG TABLET PO ×2 (08:47→21:25)
[2020-11-04] MEDS: Thiamine HCL 100 MG TABLET PO (08:47)
[2020-11-04] MEDS: Folic Acid 1 MG TABLET PO (08:47)
[2020-11-04] MEDS: cloNIDine HCL 0.1 MG TABLET PO (08:47)
[2020-11-04] MEDS: LORazepam 1 MG TABLET PO ×2 (08:48→14:05)
[2020-11-04] MEDS: Fluticasone/Vilanterol 200/25 BLST.W.DEV 1 PUFF INHALE (11:15)
[2020-11-04] MEDS: Acetaminophen 325 MG TABLET 650 MG PO ×2 (14:04→21:27)
[2020-11-04] MEDS: Ibuprofen 600 MG TABLET PO ×2 (14:04→21:27)
[2020-11-04 16:34] VITALS: BP 139/73; PULSE 63; RESP 18; TEMP 36.3
--- NOTE | 2020-11-04 20:01 | HO.PSYCHPN ---
Subjective Subjective Date of Service: 11/04/20 Reason For Visit: SI Subjective Notes: Conditional Voluntary Interim History: pt anxious dysphoric Medication Compliance: Yes Mental Status Exam Mental Status Exam Narrative: Appearance: casually groomed, fair hygiene, tearful, in NAD Behavior: cooperative Psychomotor: no agitation or retardation noted Speech: clear, normal rate/rhythm/volume, spontaneous TP: linear TC: no signs of psychosis, hopeless/helpless, passive SI Mood: depressed Affect: blunted Insight/judgment: fair x 2. AH/VH: none Delusions: none SI: passive, denies plan or intent HI: none Memory/cog: alert, oriented x 3. grossly intact to conversational testing. Diagnostics Vital Signs (24Hr): Vital Signs - 24 hr 11/03/20 21:56 11/03/20 22:00 11/04/20 06:00 Temperature 97.5 F 98.9 F Pulse Rate 78 78 57 Respiratory Rate 16 Blood Pressure 155/74 H 155/74 H 156/74 H Pulse Oximetry 96 11/04/20 08:47 11/04/20 16:34 Temperature 97.4 F Pulse Rate 67 63 Respiratory Rate 18 Blood Pressure 151/78 H 139/73 Pulse Oximetry Body Mass Index 50.4 Labs Results: 10/24/20 06:47 10/24/20 06:48 Medications Medications Current Medications Generic Name Dose Route Start Last Admin Trade Name Freq PRN Reason Stop Dose Admin Acetaminophen 650 mg 10/25/20 19:12 11/04/20 14:04 Acetaminophen 325 Mg Tablet PO 650 mg Q6H PRN Administration Headache/Pain Mild Scale (1-3) Al Hydroxide/Mg Hydroxide 30 ml 10/25/20 19:12 Magnesium Hydrox/Alum Hydrox 30 Ml Oral.Susp PO Q6H PRN Heartburn/Nausea Albuterol Sulfate 2 puff 10/25/20 20:17 Albuterol Sulfate 90 Mcg 8 Gm Inhaler INHALE Q6H PRN Wheezing Clonidine HCl 0.1 mg 11/01/20 14:25 11/04/20 08:47 Clonidine Hcl 0.1 Mg Tablet PO 0.1 mg DAILY JUAN Administration Protocol Escitalopram Oxalate 20 mg 10/27/20 09:00 11/04/20 08:46 Escitalopram Oxalate 20 Mg Tablet PO 20 mg DAILY JUAN Administration Ferrous Sulfate 324 mg 10/26/20 09:00 11/04/20 08:46 Ferrous Sulfate 324 Mg Tablet. PO 324 mg DAILY JUAN Administration Fluticasone/Vilanterol 1 puff 10/26/20 08:00 11/04/20 11:15 Fluticasone/Vilanterol 200/25 Blst.W.Dev INHALE 1 puff RDAILY JUAN Administration Folic Acid 1 mg 10/26/20 09:00 11/04/20 08:47 Folic Acid 1 Mg Tablet PO 1 mg DAILY JUAN Administration Gabapentin 300 mg 10/31/20 21:00 11/04/20 14:05 Gabapentin 300 Mg Capsule PO 300 mg TID JUAN Administration Hydroxyzine HCl 25 mg 10/25/20 19:12 10/30/20 23:16 Hydroxyzine Hcl 25 Mg Tablet PO 25 mg BEDTIME PRN Administration Anxiety Ibuprofen 600 mg 10/31/20 19:10 11/04/20 14:04 Ibuprofen 600 Mg Tablet PO 600 mg Q6H PRN Administration Pain, Moderate (Pain Scale 4-6 Lisinopril 20 mg 10/27/20 09:00 11/04/20 08:47 Lisinopril 20 Mg Tablet PO 20 mg DAILY JUAN Administration Protocol Lorazepam 1 mg 10/30/20 21:00 11/04/20 14:05 Lorazepam 1 Mg Tablet PO 1 mg TID JUAN Administration Lorazepam 1 mg 10/31/20 07:58 Lorazepam 1 Mg Tablet PO Q4H PRN Alcohol Withdrawal Magnesium Hydroxide 30 ml 10/25/20 19:12 Milk Of Magnesia 30 Ml Oral.Susp PO DAILY PRN Constipation Medroxyprogesterone Acetate 10 mg 10/26/20 09:00 11/04/20 08:46 Medroxyprogesterone Acetate 5 Mg Tablet PO 10 mg DAILY JUAN Administration Melatonin 6 mg 10/26/20 21:00 11/03/20 21:55 Melatonin 3 Mg Tablet PO 6 mg BEDTIME JUAN Administration Metoprolol Tartrate 25 mg 10/28/20 09:00 11/04/20 08:47 Metoprolol Tartrate 25 Mg Tablet PO 25 mg BID JUAN Administration Protocol Multivitamins/Vitamin C 1 tab 10/26/20 09:00 11/04/20 08:46 Multivitamin Tablet PO 1 tab DAILY JUAN Administration Naltrexone HCl 25 mg 11/03/20 09:00 11/04/20 08:46 Naltrexone Hcl 50 Mg Tablet PO 25 mg DAILY JUAN Administration Quetiapine Fumarate 50 mg 10/31/20 21:00 11/03/20 21:56 Quetiapine Fumarate 50 Mg Tablet PO 50 mg BEDTIME JUAN Administration Thiamine HCl 100 mg 10/26/20 07:00 11/04/20 08:47 Thiamine Hcl 100 Mg Tablet PO 100 mg DAILY JUAN Administration Allergies Allergies Allergy/AdvReac Type Severity Reaction Status Date / Time hydromorphone Allergy Unknown Hives Verified 10/09/20 11:34 piperacillin Allergy Unknown hives Verified 10/09/20 11:34 Assessment & Plan Assessment & Plan (1) MDD (major depressive disorder), recurrent episode, severe: Qualifiers: Psychotic features: without psychotic features Qualified Code(s): F33.2 - Major depressive disorder, recurrent severe without psychotic features Status: Acute Code(s): F33.2 - Major depressive disorder, recurrent severe without psychotic features Assessment and Plan: continue plan of care (2) Alcohol abuse: Status: Acute Code(s): F10.10 - Alcohol abuse, uncomplicated Greater than 50% of the session was spent on counseling and/or coordination of care Reason for contiued inpatient stay Substantial Risk for: harm to self and rapid decompensation
[2020-11-04] MEDS: Melatonin 3 MG TABLET 6 MG PO (21:24)
[2020-11-04 21:25] VITALS: BP 151/74; PULSE 73
[2020-11-04] MEDS: QUEtiapine Fumarate 50 MG TABLET PO (21:25)
[2020-11-05] VITALS (7 sets, daily range): BP systolic 151–168; BP diastolic 75–93; PULSE 56–77; RESP 20; TEMP 36.1–36.4; O2SAT 99
[2020-11-05] MEDS: Ferrous Sulfate 324 MG TABLET.DR PO (08:36)
[2020-11-05] MEDS: Gabapentin 300 MG CAPSULE PO (08:36)
[2020-11-05] MEDS: Naltrexone HCl 50 MG TABLET 25 MG PO (08:36)
[2020-11-05] MEDS: cloNIDine HCL 0.1 MG TABLET PO (08:37)
[2020-11-05] MEDS: medroxyPROGESTERone Acetate 5 MG TABLET 10 MG PO (08:38)
[2020-11-05] MEDS: Metoprolol Tartrate 25 MG TABLET PO ×2 (08:38→20:14)
[2020-11-05] MEDS: Multivitamin TABLET 1 TAB PO (08:38)
[2020-11-05] MEDS: Thiamine HCL 100 MG TABLET PO (08:38)
[2020-11-05] MEDS: Folic Acid 1 MG TABLET PO (08:38)
[2020-11-05] MEDS: Escitalopram Oxalate 20 MG TABLET PO (08:38)
[2020-11-05] MEDS: Fluticasone/Vilanterol 200/25 BLST.W.DEV 1 PUFF INHALE (08:42)
--- NOTE | 2020-11-05 13:01 | HO.PSYCHPN ---
Subjective Subjective Date of Service: 11/05/20 Reason For Visit: SI Interim History: Pt reports sleeping slightly better. She continues to report hearing music/voices at night, which she knows are not there. She reports this is a new symptoms for her that appears initially to be related to alcohol withdrawing symptoms. She continues to endorse depressed mood, anhedonia, hopeless/helpless. She reports passive suicidal ideation but denies any plan or intent. We discussed adding abilify to boost effect of antidepressant, may help with nighttime AH. Will d/c gabapentin as pt is retaining fluid- bilat LE edema. Pt reports naltrexon has decreased cravings- denies side effects. Review of Systems Constitutional: Reports no additional constitutional complaints Eyes: Reports no additional eye complaints Denies dizziness Cardiovascular: Reports no additional cardiovascular complaints, Denies chest pain, Denies chest pain with activity, Denies epigastric discomfort and Denies dyspnea Respiratory: Reports as per HPI and Denies dyspnea Gastrointestinal: Reports no additional gastrointestinal complaints, Denies constipation, Denies fecal incontinence and Denies diarrhea Musculoskeletal: Reports no additional musculoskeletal complaints Skin/Breast: Denies rash Reports system reviewed and no additional complaints, except as documented, Denies dizziness and Denies Sensory deficit (Neuro) Mental Status Exam Mental Status Exam Narrative: Appearance: casually groomed, fair hygiene, tearful, in NAD Behavior: cooperative Psychomotor: no agitation or retardation noted Speech: clear, normal rate/rhythm/volume, spontaneous TP: linear TC: no signs of psychosis, hopeless/helpless, passive SI Mood: depressed Affect: blunted Insight/judgment: fair x 2. AH/VH: none Delusions: none SI: passive, denies plan or intent HI: none Memory/cog: alert, oriented x 3. grossly intact to conversational testing. Diagnostics Vital Signs (24Hr): Vital Signs - 24 hr 11/04/20 16:34 11/04/20 21:25 11/05/20 05:30 Temperature 97.4 F 97 F Pulse Rate 63 73 74 Respiratory Rate 18 20 Blood Pressure 139/73 151/74 H 167/93 H Pulse Oximetry 99 11/05/20 08:23 11/05/20 08:37 11/05/20 08:38 Temperature Pulse Rate 69 69 69 Respiratory Rate Blood Pressure 168/82 H 168/82 H 168/82 H Pulse Oximetry Body Mass Index 50.4 Labs Results: 10/24/20 06:47 10/24/20 06:48 Medications Medications Current Medications Generic Name Dose Route Start Last Admin Trade Name Sterlingq PRN Reason Stop Dose Admin Acetaminophen 650 mg 10/25/20 19:12 11/04/20 21:27 Acetaminophen 325 Mg Tablet PO 650 mg Q6H PRN Administration Headache/Pain Mild Scale (1-3) Al Hydroxide/Mg Hydroxide 30 ml 10/25/20 19:12 Magnesium Hydrox/Alum Hydrox 30 Ml Oral.Susp PO Q6H PRN Heartburn/Nausea Albuterol Sulfate 2 puff 10/25/20 20:17 Albuterol Sulfate 90 Mcg 8 Gm Inhaler INHALE Q6H PRN Wheezing Clonidine HCl 0.1 mg 11/01/20 14:25 11/05/20 08:37 Clonidine Hcl 0.1 Mg Tablet PO 0.1 mg DAILY JUAN Administration Protocol Escitalopram Oxalate 20 mg 10/27/20 09:00 11/05/20 08:38 Escitalopram Oxalate 20 Mg Tablet PO 20 mg DAILY JUAN Administration Ferrous Sulfate 324 mg 10/26/20 09:00 11/05/20 08:36 Ferrous Sulfate 324 Mg Tablet.Dr PO 324 mg DAILY JUAN Administration Fluticasone/Vilanterol 1 puff 10/26/20 08:00 11/05/20 08:42 Fluticasone/Vilanterol 200/25 Blst.W.Dev INHALE 1 puff RDAILY JUAN Administration Folic Acid 1 mg 10/26/20 09:00 11/05/20 08:38 Folic Acid 1 Mg Tablet PO 1 mg DAILY JUAN Administration Hydroxyzine HCl 25 mg 10/25/20 19:12 10/30/20 23:16 Hydroxyzine Hcl 25 Mg Tablet PO 25 mg BEDTIME PRN Administration Anxiety Ibuprofen 600 mg 10/31/20 19:10 11/04/20 21:27 Ibuprofen 600 Mg Tablet PO 600 mg Q6H PRN Administration Pain, Moderate (Pain Scale 4-6 Lisinopril 20 mg 10/27/20 09:00 11/05/20 08:38 Lisinopril 20 Mg Tablet PO 20 mg DAILY JUAN Administration Protocol Magnesium Hydroxide 30 ml 10/25/20 19:12 Milk Of Magnesia 30 Ml Oral.Susp PO DAILY PRN Constipation Medroxyprogesterone Acetate 10 mg 10/26/20 09:00 11/05/20 08:38 Medroxyprogesterone Acetate 5 Mg Tablet PO 10 mg DAILY JUAN Administration Melatonin 6 mg 10/26/20 21:00 11/04/20 21:24 Melatonin 3 Mg Tablet PO 6 mg BEDTIME JUAN Administration Metoprolol Tartrate 25 mg 10/28/20 09:00 11/05/20 08:38 Metoprolol Tartrate 25 Mg Tablet PO 25 mg BID JUAN Administration Protocol Multivitamins/Vitamin C 1 tab 10/26/20 09:00 11/05/20 08:38 Multivitamin Tablet PO 1 tab DAILY JUAN Administration Naltrexone HCl 25 mg 11/03/20 09:00 11/05/20 08:36 Naltrexone Hcl 50 Mg Tablet PO 25 mg DAILY JUAN Administration Quetiapine Fumarate 50 mg 10/31/20 21:00 11/04/20 21:25 Quetiapine Fumarate 50 Mg Tablet PO 50 mg BEDTIME JUAN Administration Thiamine HCl 100 mg 10/26/20 07:00 11/05/20 08:38 Thiamine Hcl 100 Mg Tablet PO 100 mg DAILY JUAN Administration Allergies Allergies Allergy/AdvReac Type Severity Reaction Status Date / Time hydromorphone Allergy Unknown Hives Verified 10/09/20 11:34 piperacillin Allergy Unknown hives Verified 10/09/20 11:34 Assessment & Plan Assessment & Plan (1) MDD (major depressive disorder), recurrent episode, severe: Qualifiers: Psychotic features: without psychotic features Qualified Code(s): F33.2 - Major depressive disorder, recurrent severe without psychotic features Status: Acute Code(s): F33.2 - Major depressive disorder, recurrent severe without psychotic features Assessment and Plan: 1. Continue Lexapro 20 mg po daily 2. D/c gabapentin due to fluid retention 3. Start abilify 4mg po qhs on 11/05 to boost antidepressant effect (2) Alcohol abuse: Status: Acute Code(s): F10.10 - Alcohol abuse, uncomplicated Assessment and Plan: 1. continue naltrexon 50mg po qhs. Greater than 50% of the session was spent on counseling and/or coordination of care Reason for contiued inpatient stay Substantial Risk for: harm to self
[2020-11-05] MEDS: ARIPiprazole 2 MG TABLET 4 MG PO (20:14)
[2020-11-05] MEDS: Melatonin 3 MG TABLET 6 MG PO (20:14)
[2020-11-05] MEDS: QUEtiapine Fumarate 50 MG TABLET PO (20:14)
[2020-11-06] VITALS (8 sets, daily range): BP systolic 119–158; BP diastolic 63–86; PULSE 48–83; RESP 16–18; TEMP 36.5–36.7; O2SAT 94–97
[2020-11-06] MEDS: hydrOXYzine HCL 25 MG TABLET PO (03:51)
[2020-11-06] MEDS: Ibuprofen 600 MG TABLET PO (03:51)
[2020-11-06] MEDS: Fluticasone/Vilanterol 200/25 BLST.W.DEV 1 PUFF INHALE (08:18)
[2020-11-06] MEDS: medroxyPROGESTERone Acetate 5 MG TABLET 10 MG PO (08:18)
[2020-11-06] MEDS: Multivitamin TABLET 1 TAB PO (08:19)
[2020-11-06] MEDS: Folic Acid 1 MG TABLET PO (08:19)
[2020-11-06] MEDS: Metoprolol Tartrate 25 MG TABLET PO ×2 (08:19→21:27)
[2020-11-06] MEDS: Naltrexone HCl 50 MG TABLET 25 MG PO (08:19)
[2020-11-06] MEDS: Escitalopram Oxalate 20 MG TABLET PO (08:19)
[2020-11-06] MEDS: cloNIDine HCL 0.1 MG TABLET PO (08:19)
[2020-11-06] MEDS: Ferrous Sulfate 324 MG TABLET.DR PO (08:20)
[2020-11-06] MEDS: Thiamine HCL 100 MG TABLET PO (08:20)
--- NOTE | 2020-11-06 13:47 | MHC.RECOVSUP ---
? Reason for consult:Continuity of care o Current location: 506-1 o Identified substance use concern: ETOH - Overdose - Withdrawal - Support ? Intervention: o MAT started or to be started o Community resources provided o Harm reduction discussion ? Plan: o Referral to [facility] o Patient to follow up with [facility] after discharge ? Additional information: Patient has started MAT and was willing to continue to work with the [facility]. Gave patient community resources and discussed HF membership.
--- NOTE | 2020-11-06 16:07 | HO.PSYCHPN ---
Subjective Subjective Date of Service: 11/06/20 Reason For Visit: SI Interim History: Pt reports slight improvement in symptoms of depression. She reports feeling slightly more hopeful about her future. She denies suicidal ideation. She reports not hearing voices/music when falling asleep. She is tearful at times. She has been more visible in the unit and attends groups. Review of Systems Constitutional: Reports no additional constitutional complaints Eyes: Reports no additional eye complaints Denies dizziness Cardiovascular: Reports no additional cardiovascular complaints, Denies chest pain, Denies chest pain with activity, Denies epigastric discomfort, Denies edema and Denies dyspnea Respiratory: Reports as per HPI and Denies dyspnea Gastrointestinal: Reports no additional gastrointestinal complaints, Denies constipation, Denies fecal incontinence and Denies diarrhea Musculoskeletal: Reports no additional musculoskeletal complaints Skin/Breast: Denies rash Reports system reviewed and no additional complaints, except as documented, Denies dizziness and Denies Sensory deficit (Neuro) Psychiatric: Denies anxiety Mental Status Exam Mental Status Exam Narrative: Appearance: casually groomed, fair hygiene, tearful, in NAD Behavior: cooperative Psychomotor: no agitation or retardation noted Speech: clear, normal rate/rhythm/volume, spontaneous TP: linear TC: no signs of psychosis, hopeless/helpless, passive SI Mood: depressed Affect: blunted Insight/judgment: fair x 2. AH/VH: none Delusions: none SI: passive, denies plan or intent HI: none Memory/cog: alert, oriented x 3. grossly intact to conversational testing. Diagnostics Vital Signs (24Hr): Vital Signs - 24 hr 11/05/20 17:45 11/05/20 19:57 11/05/20 20:14 Temperature 97.6 F Pulse Rate 77 56 56 Respiratory Rate Blood Pressure 151/76 H 160/75 H 160/75 H Pulse Oximetry 11/06/20 03:56 11/06/20 07:58 11/06/20 08:18 Temperature 97.7 F Pulse Rate 83 62 62 Respiratory Rate 18 Blood Pressure 156/86 H 158/74 H 158/74 H Pulse Oximetry 97 11/06/20 08:19 11/06/20 11:14 Temperature Pulse Rate 62 56 Respiratory Rate 16 Blood Pressure 158/74 H 138/73 Pulse Oximetry 94 Body Mass Index 50.4 Labs Results: 10/24/20 06:47 10/24/20 06:48 Medications Medications Current Medications Generic Name Dose Route Start Last Admin Trade Name Freq PRN Reason Stop Dose Admin Acetaminophen 650 mg 10/25/20 19:12 11/04/20 21:27 Acetaminophen 325 Mg Tablet PO 650 mg Q6H PRN Administration Headache/Pain Mild Scale (1-3) Al Hydroxide/Mg Hydroxide 30 ml 10/25/20 19:12 Magnesium Hydrox/Alum Hydrox 30 Ml Oral.Susp PO Q6H PRN Heartburn/Nausea Albuterol Sulfate 2 puff 10/25/20 20:17 Albuterol Sulfate 90 Mcg 8 Gm Inhaler INHALE Q6H PRN Wheezing Aripiprazole 4 mg 11/05/20 21:00 11/05/20 20:14 Aripiprazole 2 Mg Tablet PO 4 mg BEDTIME JUAN Administration Escitalopram Oxalate 20 mg 10/27/20 09:00 11/06/20 08:19 Escitalopram Oxalate 20 Mg Tablet PO 20 mg DAILY JUAN Administration Ferrous Sulfate 324 mg 10/26/20 09:00 11/06/20 08:20 Ferrous Sulfate 324 Mg Tablet.Dr PO 324 mg DAILY JUAN Administration Fluticasone/Vilanterol 1 puff 10/26/20 08:00 11/06/20 08:18 Fluticasone/Vilanterol 200/25 Blst.W.Dev INHALE 1 puff RDAILY JUAN Administration Folic Acid 1 mg 10/26/20 09:00 11/06/20 08:19 Folic Acid 1 Mg Tablet PO 1 mg DAILY JUAN Administration Hydroxyzine HCl 25 mg 10/25/20 19:12 11/06/20 03:51 Hydroxyzine Hcl 25 Mg Tablet PO 25 mg BEDTIME PRN Administration Anxiety Ibuprofen 600 mg 10/31/20 19:10 11/06/20 03:51 Ibuprofen 600 Mg Tablet PO 600 mg Q6H PRN Administration Pain, Moderate (Pain Scale 4-6 Lisinopril 20 mg 10/27/20 09:00 11/06/20 08:18 Lisinopril 20 Mg Tablet PO 20 mg DAILY JUAN Administration Protocol Magnesium Hydroxide 30 ml 10/25/20 19:12 Milk Of Magnesia 30 Ml Oral.Susp PO DAILY PRN Constipation Medroxyprogesterone Acetate 10 mg 10/26/20 09:00 11/06/20 08:18 Medroxyprogesterone Acetate 5 Mg Tablet PO 10 mg DAILY JUAN Administration Melatonin 6 mg 10/26/20 21:00 11/05/20 20:14 Melatonin 3 Mg Tablet PO 6 mg BEDTIME JUAN Administration Metoprolol Tartrate 25 mg 10/28/20 09:00 11/06/20 08:19 Metoprolol Tartrate 25 Mg Tablet PO 25 mg BID JUAN Administration Protocol Multivitamins/Vitamin C 1 tab 10/26/20 09:00 11/06/20 08:19 Multivitamin Tablet PO 1 tab DAILY JUAN Administration Naltrexone HCl 50 mg 11/07/20 09:00 Naltrexone Hcl 50 Mg Tablet PO DAILY JUAN Quetiapine Fumarate 50 mg 10/31/20 21:00 11/05/20 20:14 Quetiapine Fumarate 50 Mg Tablet PO 50 mg BEDTIME JUAN Administration Thiamine HCl 100 mg 10/26/20 07:00 11/06/20 08:20 Thiamine Hcl 100 Mg Tablet PO 100 mg DAILY JUAN Administration Allergies Allergies Allergy/AdvReac Type Severity Reaction Status Date / Time hydromorphone Allergy Unknown Hives Verified 10/09/20 11:34 piperacillin Allergy Unknown hives Verified 10/09/20 11:34 Assessment & Plan Assessment & Plan (1) MDD (major depressive disorder), recurrent episode, severe: Qualifiers: Psychotic features: without psychotic features Qualified Code(s): F33.2 - Major depressive disorder, recurrent severe without psychotic features Status: Acute Code(s): F33.2 - Major depressive disorder, recurrent severe without psychotic features Assessment and Plan: 1. Continue Lexapro 20 mg po daily 2. D/c gabapentin due to fluid retention 3. Continue abilify 4mg po qhs on 11/05 to boost antidepressant effect (2) Alcohol abuse: Status: Acute Code(s): F10.10 - Alcohol abuse, uncomplicated Assessment and Plan: 1. continue naltrexon 50mg po qhs. Greater than 50% of the session was spent on counseling and/or coordination of care Reason for contiued inpatient stay Substantial Risk for: harm to self
[2020-11-06] MEDS: Acetaminophen 325 MG TABLET 650 MG PO (21:26)
[2020-11-06] MEDS: Melatonin 3 MG TABLET 6 MG PO (21:26)
[2020-11-06] MEDS: ARIPiprazole 2 MG TABLET 4 MG PO (21:27)
[2020-11-06] MEDS: QUEtiapine Fumarate 50 MG TABLET PO (21:27)
[2020-11-07 06:00] VITALS: BP 160/74; PULSE 55; TEMP 36.5
[2020-11-07 08:12] VITALS: BP 160/74; PULSE 55
[2020-11-07] MEDS: Fluticasone/Vilanterol 200/25 BLST.W.DEV 1 PUFF INHALE (08:12)
[2020-11-07] MEDS: Ferrous Sulfate 324 MG TABLET.DR PO (08:12)
[2020-11-07] MEDS: medroxyPROGESTERone Acetate 5 MG TABLET 10 MG PO (08:12)
[2020-11-07] MEDS: Escitalopram Oxalate 20 MG TABLET PO (08:12)
[2020-11-07] MEDS: Multivitamin TABLET 1 TAB PO (08:12)
[2020-11-07] MEDS: Metoprolol Tartrate 25 MG TABLET PO (08:12)
[2020-11-07] MEDS: Folic Acid 1 MG TABLET PO (08:13)
[2020-11-07] MEDS: Thiamine HCL 100 MG TABLET PO (08:13)
[2020-11-07] MEDS: Naltrexone HCl 50 MG TABLET PO (08:13)
[2020-11-07 08:35] VITALS: BP 158/75; PULSE 55
--- NOTE | 2020-11-07 16:13 | PM.IMCN ---
History of Present Illness Data of Consult Service Date: 11/07/20 Requesting physician: Marla Lobo Primary Care Provider: MD KIMO Trevino Reason for consult: hypertension This is a 50-year-old female with a history of hypertension who is admitted to for management of depression. Her blood pressure has been noted to be elevated in the 150s. Her lisinopril has been titrated upward from 5-20 mg daily. It appears she was trialed on a beta-rachana which causes bradycardia and was discontinued. The hospitalists were asked to see her for assistance in management is of uncontrolled hypertension. She denies any chest pain, shortness of breath, visual changes. Review of Systems Review of Systems: Yes all other systems are reviewed and are negative Constitutional: Constitutional: Denies chills and Denies fever(s) Cardiovascular: Cardiovascular: Denies chest pain Respiratory: Respiratory: Denies cough Gastrointestinal: Gastrointestinal: Denies abdominal pain PMFSH Medical History Anemia Anxiety and depression Benign essential hypertension Morbid obesity with BMI of 50.0-59.9, adult Obstructive sleep apnea Osteoarthritis of knees, bilateral Peripheral vascular disease Vitamin D deficiency Functional capacity: independent ambulation Family History Father Lung cancer Liver cancer Hepatitis C Mother CVD (cerebrovascular disease) Stroke Diabetes Family history: reviewed and not pertinent Surgical History H/O gastric bypass History of breast lift History of section History of cholecystectomy Social History (Updated 11/07/20 @ 16:18 by TAINA Barrera) Household Members: Children Housing: Apartment Do you presently have visiting nurse or other home services: No Alcohol intake: current Alcohol intake frequency: holidays/special occasions only Alcohol type: beer Smoking Status: Never smoker Use of substances other than those prescribed or required for medical reasons: No Substance Use Type: Prescription Drugs Currently Displaying Signs/Symptoms of Drug Intoxication Withdrawal: No Any prior treatment program specific to substance use: No Have you been hit, kicked, punched, or otherwise hurt by someone within the past year? If so, by whom?: No Do you feel safe in your current relationship?: No Current Relationship Is there a partner from a previous relationship who is making you feel unsafe now?: No Are you made to feel afraid or neglected: No Advance Directives: No Advance Directives on File: No Suicidal Behavior: History of suicide attemps Current/Past Psychiatric Disorders: PTSD [place] Symptoms: Anhedonia and Anxiety Family History: Attempts Access to Firearms: No Risk Factors Comment: pt clarified that she did not think of suicide SINCE LAST CONTACT MEETING so safeT form does not need to be completed. Do you have thoughts of harming others: None Do you have a plan to hurt others: No Plan Recently lost weight without trying: No service: No Sexual orientation: Straight/Heterosexual Gender identity: female Meds Allergies Allergy/AdvReac Type Severity Reaction Status Date / Time hydromorphone Allergy Unknown Hives Verified 10/09/20 11:34 piperacillin Allergy Unknown hives Verified 10/09/20 11:34 Active Medications: Current Medications Generic Name Dose Route Start Last Admin Trade Name Freq PRN Reason Stop Dose Admin Acetaminophen 650 mg 10/25/20 19:12 11/06/20 21:26 Acetaminophen 325 Mg Tablet PO 650 mg Q6H PRN Administration Headache/Pain Mild Scale (1-3) Al Hydroxide/Mg Hydroxide 30 ml 10/25/20 19:12 Magnesium Hydrox/Alum Hydrox 30 Ml Oral.Susp PO Q6H PRN Heartburn/Nausea Albuterol Sulfate 2 puff 10/25/20 20:17 Albuterol Sulfate 90 Mcg 8 Gm Inhaler INHALE Q6H PRN Wheezing Aripiprazole 4 mg 11/05/20 21:00 11/06/20 21:27 Aripiprazole 2 Mg Tablet PO 4 mg BEDTIME JUAN Administration Escitalopram Oxalate 20 mg 10/27/20 09:00 11/07/20 08:12 Escitalopram Oxalate 20 Mg Tablet PO 20 mg DAILY JUAN Administration Ferrous Sulfate 324 mg 10/26/20 09:00 11/07/20 08:12 Ferrous Sulfate 324 Mg Tablet. PO 324 mg DAILY JUAN Administration Fluticasone/Vilanterol 1 puff 10/26/20 08:00 11/07/20 08:12 Fluticasone/Vilanterol 200/25 Blst.W.Dev INHALE 1 puff RDAILY JUAN Administration Folic Acid 1 mg 10/26/20 09:00 11/07/20 08:13 Folic Acid 1 Mg Tablet PO 1 mg DAILY JUAN Administration Hydroxyzine HCl 25 mg 10/25/20 19:12 11/06/20 03:51 Hydroxyzine Hcl 25 Mg Tablet PO 25 mg BEDTIME PRN Administration Anxiety Ibuprofen 600 mg 10/31/20 19:10 11/06/20 03:51 Ibuprofen 600 Mg Tablet PO 600 mg Q6H PRN Administration Pain, Moderate (Pain Scale 4-6 Lisinopril 20 mg 10/27/20 09:00 11/07/20 08:13 Lisinopril 20 Mg Tablet PO 20 mg DAILY JUAN Administration Protocol Magnesium Hydroxide 30 ml 10/25/20 19:12 Milk Of Magnesia 30 Ml Oral.Susp PO DAILY PRN Constipation Medroxyprogesterone Acetate 10 mg 10/26/20 09:00 11/07/20 08:12 Medroxyprogesterone Acetate 5 Mg Tablet PO 10 mg DAILY JUAN Administration Melatonin 6 mg 10/26/20 21:00 11/06/20 21:26 Melatonin 3 Mg Tablet PO 6 mg BEDTIME JUAN Administration Multivitamins/Vitamin C 1 tab 10/26/20 09:00 11/07/20 08:12 Multivitamin Tablet PO 1 tab DAILY JUAN Administration Naltrexone HCl 50 mg 11/07/20 09:00 11/07/20 08:13 Naltrexone Hcl 50 Mg Tablet PO 50 mg DAILY JUAN Administration Quetiapine Fumarate 50 mg 10/31/20 21:00 11/06/20 21:27 Quetiapine Fumarate 50 Mg Tablet PO 50 mg BEDTIME JUAN Administration Thiamine HCl 100 mg 10/26/20 07:00 11/07/20 08:13 Thiamine Hcl 100 Mg Tablet PO 100 mg DAILY JUAN Administration Home Medications Medication Instructions Recorded Confirmed Last Taken Type albuterol sulfate 90 mcg/actuation 2 puff PO Q6H PRN 07/02/20 10/24/20 10/23/20 History aerosol inhaler Physical Exam Vital Signs and Narrative: Vital Signs: Last Vital Signs Temp 97.7 F 11/07/20 06:00 Pulse 55 11/07/20 08:35 Resp 16 11/06/20 11:14 BP 158/75 H 11/07/20 08:35 Pulse Ox 94 11/06/20 11:14 Body Mass Index 50.4 Const: General: cooperative, comfortable, no acute distress, alert and awake Nutritional Appearance: obese Orientation/consciousness: patient oriented x3 HENMT: Head: Yes normocephalic and Yes atraumatic Eyes: Sclerae: sclerae normal Chest: Chest palpation & inspection: normal inspection of the chest Resp: Effort & Inspection: normal respiratory effort and no respiratory distress Auscultation: clear to auscultation bilaterally Cardio: Rate: regular rate Rhythm: regular rhythm GI: Palpation (GI): Soft to palpation and nontender Skin: General skin exam: no rashes or lesions noted Neuro: General: patient oriented x3 Cranial nerves: Yes CN's II-XII intact bilaterally and Yes Bilaterally intact EOM present Results Labs CBC and Chem 7: 10/24/20 06:47 10/24/20 06:48 Assessment and Plan (1) Morbid obesity with BMI of 50.0-59.9, adult: Status: Acute (2) Benign essential hypertension: Problem details: Echo December 2017 EF 60-65 Status: Acute This is a 50-year-old female with a history of hypertension, asthma admitted to for management of depression with suicidal ideation Hypertension Will uptitrate lisinopril to 30 mg daily follow blood pressure closely outpatient follow up with PCP after discharge for routine labwork Thank you for allowing us to participate in the care of this patient. This case was discussed with Dr. Naqvi.
[2020-11-07 16:25] VITALS: BP 130/68; PULSE 58; TEMP 36.6
--- NOTE | 2020-11-07 17:36 | HO.PSYCHPN ---
Subjective Subjective Date of Service: 11/07/20 Reason For Visit: SI Interim History: Pt reports feeling more optimistic about her future. She continues to endorse depressed mood, worried about psychosocial stressors such as son's illness and going through divorce. She denies suicidal ideation. She denies AH when falling asleep. She reports decreased cravings of alcohol with naltrexon. She does report headache in morning. She is in agreement to continue PHP after inpatient admission. She reports sleeping better. Review of Systems Review of Systems Yes all other systems are reviewed and are negative Constitutional: Reports no additional constitutional complaints, Denies chills and Denies fever(s) Eyes: Reports no additional eye complaints Denies dizziness Cardiovascular: Reports no additional cardiovascular complaints, Denies chest pain, Denies chest pain with activity, Denies epigastric discomfort, Denies edema and Denies dyspnea Respiratory: Reports as per HPI, Denies cough and Denies dyspnea Gastrointestinal: Reports no additional gastrointestinal complaints, Denies abdominal pain, Denies constipation, Denies fecal incontinence and Denies diarrhea Musculoskeletal: Reports no additional musculoskeletal complaints Skin/Breast: Denies rash Reports system reviewed and no additional complaints, except as documented, Denies dizziness and Denies Sensory deficit (Neuro) Psychiatric: Denies anxiety Mental Status Exam Mental Status Exam Narrative: Appearance: casually groomed, fair hygiene, tearful, in NAD Behavior: cooperative Psychomotor: no agitation or retardation noted Speech: clear, normal rate/rhythm/volume, spontaneous TP: linear TC: no signs of psychosis, hopeless/helpless, passive SI Mood: depressed Affect: blunted Insight/judgment: fair x 2. AH/VH: none Delusions: none SI: passive, denies plan or intent HI: none Memory/cog: alert, oriented x 3. grossly intact to conversational testing. Diagnostics Vital Signs (24Hr): Vital Signs - 24 hr 11/06/20 19:18 11/06/20 21:27 11/07/20 06:00 Temperature 97.7 F Pulse Rate 54 54 55 Blood Pressure 152/63 H 149/73 H 160/74 H 11/07/20 08:12 11/07/20 08:35 Temperature Pulse Rate 55 55 Blood Pressure 160/74 H 158/75 H Body Mass Index 50.4 Labs Results: 10/24/20 06:47 10/24/20 06:48 Medications Medications Current Medications Generic Name Dose Route Start Last Admin Trade Name Freq PRN Reason Stop Dose Admin Acetaminophen 650 mg 10/25/20 19:12 11/06/20 21:26 Acetaminophen 325 Mg Tablet PO 650 mg Q6H PRN Administration Headache/Pain Mild Scale (1-3) Al Hydroxide/Mg Hydroxide 30 ml 10/25/20 19:12 Magnesium Hydrox/Alum Hydrox 30 Ml Oral.Susp PO Q6H PRN Heartburn/Nausea Albuterol Sulfate 2 puff 10/25/20 20:17 Albuterol Sulfate 90 Mcg 8 Gm Inhaler INHALE Q6H PRN Wheezing Aripiprazole 4 mg 11/05/20 21:00 11/06/20 21:27 Aripiprazole 2 Mg Tablet PO 4 mg BEDTIME JUAN Administration Escitalopram Oxalate 20 mg 10/27/20 09:00 11/07/20 08:12 Escitalopram Oxalate 20 Mg Tablet PO 20 mg DAILY JUAN Administration Ferrous Sulfate 324 mg 10/26/20 09:00 11/07/20 08:12 Ferrous Sulfate 324 Mg Tablet.Dr PO 324 mg DAILY JUAN Administration Fluticasone/Vilanterol 1 puff 10/26/20 08:00 11/07/20 08:12 Fluticasone/Vilanterol 200/25 Blst.W.Dev INHALE 1 puff RDAILY [facility] Administration Folic Acid 1 mg 10/26/20 09:00 11/07/20 08:13 Folic Acid 1 Mg Tablet PO 1 mg DAILY JUAN Administration Hydroxyzine HCl 25 mg 10/25/20 19:12 11/06/20 03:51 Hydroxyzine Hcl 25 Mg Tablet PO 25 mg BEDTIME PRN Administration Anxiety Ibuprofen 600 mg 10/31/20 19:10 11/06/20 03:51 Ibuprofen 600 Mg Tablet PO 600 mg Q6H PRN Administration Pain, Moderate (Pain Scale 4-6 Lisinopril 30 mg 11/08/20 09:00 Lisinopril 10 Mg Tablet PO DAILY [facility] Protocol Magnesium Hydroxide 30 ml 10/25/20 19:12 Milk Of Magnesia 30 Ml Oral.Susp PO DAILY PRN Constipation Medroxyprogesterone Acetate 10 mg 10/26/20 09:00 11/07/20 08:12 Medroxyprogesterone Acetate 5 Mg Tablet PO 10 mg DAILY JUAN Administration Melatonin 6 mg 10/26/20 21:00 03/09/21 21:26 Melatonin 3 Mg Tablet PO 6 mg BEDTIME JUAN Administration Multivitamins/Vitamin C 1 tab 10/26/20 09:00 11/07/20 08:12 Multivitamin Tablet PO 1 tab DAILY JUAN Administration Naltrexone HCl 50 mg 11/07/20 09:00 11/07/20 08:13 Naltrexone Hcl 50 Mg Tablet PO 50 mg DAILY JUAN Administration Quetiapine Fumarate 50 mg 10/31/20 21:00 11/06/20 21:27 Quetiapine Fumarate 50 Mg Tablet PO 50 mg BEDTIME JUAN Administration Thiamine HCl 100 mg 10/26/20 07:00 11/07/20 08:13 Thiamine Hcl 100 Mg Tablet PO 100 mg DAILY JUAN Administration Allergies Allergies Allergy/AdvReac Type Severity Reaction Status Date / Time hydromorphone Allergy Unknown Hives Verified 10/09/20 11:34 piperacillin Allergy Unknown hives Verified 10/09/20 11:34 Assessment & Plan Greater than 50% of the session was spent on counseling and/or coordination of care Reason for contiued inpatient stay Substantial Risk for: harm to self
[2020-11-07] MEDS: ARIPiprazole 2 MG TABLET 4 MG PO (21:32)
[2020-11-07] MEDS: QUEtiapine Fumarate 50 MG TABLET PO (21:32)
[2020-11-07] MEDS: Melatonin 3 MG TABLET 6 MG PO (22:01)
[2020-11-08 06:00] VITALS: BP 135/83; PULSE 80; RESP 18; TEMP 37.1; O2SAT 95
[2020-11-08 08:36] VITALS: BP 156/96
[2020-11-08 08:51] VITALS: BP 156/96
[2020-11-08] MEDS: medroxyPROGESTERone Acetate 5 MG TABLET 10 MG PO (08:51)
[2020-11-08] MEDS: Folic Acid 1 MG TABLET PO (08:51)
[2020-11-08] MEDS: Ferrous Sulfate 324 MG TABLET.DR PO (08:51)
[2020-11-08] MEDS: Escitalopram Oxalate 20 MG TABLET PO (08:51)
[2020-11-08] MEDS: Multivitamin TABLET 1 TAB PO (08:52)
[2020-11-08] MEDS: Thiamine HCL 100 MG TABLET PO (08:52)
[2020-11-08] MEDS: Naltrexone HCl 50 MG TABLET PO (08:52)
[2020-11-08] MEDS: Fluticasone/Vilanterol 200/25 BLST.W.DEV 1 PUFF INHALE (08:52)
[2020-11-08] MEDS: Acetaminophen 325 MG TABLET 650 MG PO (16:36)
[2020-11-08 17:00] VITALS: BP 130/67; PULSE 57; TEMP 36.7
--- NOTE | 2020-11-08 17:32 | HO.PSYCHPN ---
Subjective Subjective Date of Service: 11/08/20 Reason For Visit: SI Interim History: Pt continues to report improvement in symptoms of depression. She denies SI/HI. She reports feeling more optimistic about her future. She denies SI/HI. She does continue to report depressed mood. She has been visible in the unit, attends groups. No behavioral concerns. Review of Systems Review of Systems Yes all other systems are reviewed and are negative Constitutional: Reports no additional constitutional complaints, Denies chills and Denies fever(s) Eyes: Reports no additional eye complaints Denies dizziness Cardiovascular: Reports no additional cardiovascular complaints, Denies chest pain, Denies chest pain with activity, Denies epigastric discomfort, Denies edema and Denies dyspnea Respiratory: Reports as per HPI, Denies cough and Denies dyspnea Gastrointestinal: Reports no additional gastrointestinal complaints, Denies abdominal pain, Denies constipation, Denies fecal incontinence and Denies diarrhea Musculoskeletal: Reports no additional musculoskeletal complaints Skin/Breast: Denies rash Reports system reviewed and no additional complaints, except as documented, Denies dizziness and Denies Sensory deficit (Neuro) Psychiatric: Denies anxiety Mental Status Exam Mental Status Exam Narrative: Appearance: casually groomed, fair hygiene, tearful, in NAD Behavior: cooperative Psychomotor: no agitation or retardation noted Speech: clear, normal rate/rhythm/volume, spontaneous TP: linear TC: no signs of psychosis, hopeless/helpless, passive SI Mood: depressed Affect: blunted Insight/judgment: fair x 2. AH/VH: none Delusions: none SI: passive, denies plan or intent HI: none Memory/cog: alert, oriented x 3. grossly intact to conversational testing. Diagnostics Vital Signs (24Hr): Vital Signs - 24 hr 11/08/20 06:00 11/08/20 08:36 11/08/20 08:51 Temperature 98.8 F Pulse Rate 80 Respiratory Rate 18 Blood Pressure 135/83 156/96 H 156/96 H Pulse Oximetry 95 Body Mass Index 50.4 Labs Results: 10/24/20 06:47 10/24/20 06:48 Medications Medications Current Medications Generic Name Dose Route Start Last Admin Trade Name Freq PRN Reason Stop Dose Admin Acetaminophen 650 mg 10/25/20 19:12 11/08/20 16:36 Acetaminophen 325 Mg Tablet PO 650 mg Q6H PRN Administration Headache/Pain Mild Scale (1-3) Al Hydroxide/Mg Hydroxide 30 ml 10/25/20 19:12 Magnesium Hydrox/Alum Hydrox 30 Ml Oral.Susp PO Q6H PRN Heartburn/Nausea Albuterol Sulfate 2 puff 10/25/20 20:17 Albuterol Sulfate 90 Mcg 8 Gm Inhaler INHALE Q6H PRN Wheezing Aripiprazole 4 mg 11/05/20 21:00 11/07/20 21:32 Aripiprazole 2 Mg Tablet PO 4 mg BEDTIME JUAN Administration Escitalopram Oxalate 20 mg 10/27/20 09:00 11/08/20 08:51 Escitalopram Oxalate 20 Mg Tablet PO 20 mg DAILY JUAN Administration Ferrous Sulfate 324 mg 10/26/20 09:00 11/08/20 08:51 Ferrous Sulfate 324 Mg Tablet.Dr PO 324 mg DAILY JUAN Administration Fluticasone/Vilanterol 1 puff 10/26/20 08:00 11/08/20 08:52 Fluticasone/Vilanterol 200/25 Blst.W.Dev INHALE 1 puff RDAILY JUAN Administration Folic Acid 1 mg 10/26/20 09:00 11/08/20 08:51 Folic Acid 1 Mg Tablet PO 1 mg DAILY JUAN Administration Hydroxyzine HCl 25 mg 10/25/20 19:12 11/06/20 03:51 Hydroxyzine Hcl 25 Mg Tablet PO 25 mg BEDTIME PRN Administration Anxiety Ibuprofen 600 mg 10/31/20 19:10 11/06/20 03:51 Ibuprofen 600 Mg Tablet PO 600 mg Q6H PRN Administration Pain, Moderate (Pain Scale 4-6 Lisinopril 30 mg 11/08/20 09:00 11/08/20 08:51 Lisinopril 10 Mg Tablet PO 30 mg DAILY JUAN Administration Protocol Magnesium Hydroxide 30 ml 10/25/20 19:12 Milk Of Magnesia 30 Ml Oral.Susp PO DAILY PRN Constipation Medroxyprogesterone Acetate 10 mg 10/26/20 09:00 11/08/20 08:51 Medroxyprogesterone Acetate 5 Mg Tablet PO 10 mg DAILY JUAN Administration Melatonin 6 mg 10/26/20 21:00 11/07/20 22:01 Melatonin 3 Mg Tablet PO 6 mg BEDTIME JUAN Administration Multivitamins/Vitamin C 1 tab 10/26/20 09:00 11/08/20 08:52 Multivitamin Tablet PO 1 tab DAILY JUAN Administration Naltrexone HCl 50 mg 11/07/20 09:00 11/08/20 08:52 Naltrexone Hcl 50 Mg Tablet PO 50 mg DAILY JUAN Administration Quetiapine Fumarate 50 mg 10/31/20 21:00 11/07/20 21:32 Quetiapine Fumarate 50 Mg Tablet PO 50 mg BEDTIME JUAN Administration Thiamine HCl 100 mg 10/26/20 07:00 11/08/20 08:52 Thiamine Hcl 100 Mg Tablet PO 100 mg DAILY JUAN Administration Allergies Allergies Allergy/AdvReac Type Severity Reaction Status Date / Time hydromorphone Allergy Unknown Hives Verified 10/09/20 11:34 piperacillin Allergy Unknown hives Verified 10/09/20 11:34 Assessment & Plan Assessment & Plan (1) Morbid obesity with BMI of 50.0-59.9, adult: Status: Acute Code(s): E66.01 - Morbid (severe) obesity due to excess calories; Z68.43 - Body mass index [BMI] 50.0-59.9, adult (2) MDD (major depressive disorder), recurrent episode, severe: Qualifiers: Psychotic features: without psychotic features Qualified Code(s): F33.2 - Major depressive disorder, recurrent severe without psychotic features Status: Acute Code(s): F33.2 - Major depressive disorder, recurrent severe without psychotic features Assessment and Plan: 1. continue current medications. 2. BP continues to be elevated, lisinpril increased to 30mg po daily. May benefit from hydrochlorothiazide Greater than 50% of the session was spent on counseling and/or coordination of care Reason for contiued inpatient stay Substantial Risk for: stable for discharge
[2020-11-08] MEDS: ARIPiprazole 2 MG TABLET 4 MG PO (21:26)
[2020-11-08] MEDS: Melatonin 3 MG TABLET 6 MG PO (21:27)
[2020-11-08] MEDS: QUEtiapine Fumarate 50 MG TABLET PO (21:27)
[2020-11-09 04:55] VITALS: BP 140/91; PULSE 84; RESP 16; TEMP 36.3; O2SAT 96
[2020-11-09] MEDS: Acetaminophen 325 MG TABLET 650 MG PO (04:55)
[2020-11-09 09:28] VITALS: BP 129/79; PULSE 104
[2020-11-09] MEDS: Fluticasone/Vilanterol 200/25 BLST.W.DEV 1 PUFF INHALE (09:28)
[2020-11-09] MEDS: Ferrous Sulfate 324 MG TABLET.DR PO (09:28)
[2020-11-09] MEDS: Thiamine HCL 100 MG TABLET PO (09:28)
[2020-11-09] MEDS: hydroCHLOROthiazide 12.5 MG TABLET PO (09:28)
[2020-11-09] MEDS: Naltrexone HCl 50 MG TABLET PO (09:28)
[2020-11-09] MEDS: Multivitamin TABLET 1 TAB PO (09:28)
[2020-11-09] MEDS: medroxyPROGESTERone Acetate 5 MG TABLET 10 MG PO (09:28)
[2020-11-09] MEDS: Folic Acid 1 MG TABLET PO (09:28)
[2020-11-09] MEDS: Escitalopram Oxalate 20 MG TABLET PO (09:28)
--- NOTE | 2020-11-09 10:03 | PM.PSYDC ---
DS: Providers Provider Date of Service: 11/09/20 Date of admission: 10/25/20 19:13 Primary care physician: Michael Melvin MD Consults: 11/06/20 12:44 Consult to Hospitalist Routine Consulting Provider: Hospitalist Reason For Exam: HTN DS: Diagnosis Discharge Diagnosis (1) Morbid obesity with BMI of 50.0-59.9, adult: Status: Acute (2) MDD (major depressive disorder), recurrent episode, severe: Status: Acute DS: Medications Discharge Medications Home Medications: Home Medications Medication Instructions Recorded Confirmed albuterol sulfate 90 mcg/actuation 2 puff PO Q6H PRN 07/02/20 10/24/20 aerosol inhaler Previous Rx's Medication Instructions Recorded medroxyprogesterone 10 mg tablet 10 mg PO DAILY 10 Days #10 tab 07/11/20 fluticasone 500 mcg-salmeterol 50 1 ea PO BID #60 cap 11/07/20 mcg/dose blistr powdr for inhalation aripiprazole [Abilify] 4 mg PO BEDTIME 30 Days #60 tab 11/09/20 escitalopram oxalate 20 mg PO DAILY 30 Days #30 tab 11/09/20 ferrous sulfate 324 mg PO DAILY 30 Days #90 tab 11/09/20 folic acid 1 mg PO DAILY 30 Days #30 tab 11/09/20 hydrochlorothiazide 12.5 mg PO DAILY 15 Days #15 tab 11/09/20 ibuprofen 600 mg PO Q6H PRN 15 Days #30 tab 11/09/20 lisinopril 30 mg PO DAILY 30 Days #90 tab 11/09/20 melatonin 6 mg PO BEDTIME 30 Days #60 tab 11/09/20 multivitamin with folic acid 1 tab PO DAILY 30 Days #30 tab 11/09/20 [Tab-A-Fazal] naltrexone 50 mg PO DAILY 30 Days #30 tab 11/09/20 thiamine mononitrate (vit B1) 100 mg PO DAILY 30 Days #30 tab 11/09/20 Discharge Plan Discharge Patient Disposition: Home, Self-Care Referrals: Caregiver Support [Other] (Call or visit website for resources for caregivers needing support) Charity (therapist) [Other] - 11/15/20 11:00 am (Telehealth appointment) Charlene Kim (psychiatrist) [Other] - 11/21/20 3:00 pm (Telehealth appointment) Partial Hospitalization Program (PHP) [Other] - 11/12/20 7:30 am (Intake and program will be virtual. Link will be sent to your email prior to intake appointment. After completing intake, you will start the program same day at 9:00am) Inocente Pearl MD [Physician] - 11/20/20 2:30 pm (IN OFFICE) Discharge Medications: New lisinopril 10 mg Tablet 30 mg PO DAILY 30 Days Qty: 90 RF: 0 ibuprofen 600 mg Tablet 600 mg PO Q6H PRN (Reason: Pain, Moderate (Pain Scale 4-6) 15 Days Qty: 30 RF: 0 escitalopram oxalate 20 mg Tablet 20 mg PO DAILY 30 Days Qty: 30 RF: 0 aripiprazole [Abilify] 2 mg Tablet 4 mg PO BEDTIME 30 Days Qty: 60 RF: 0 naltrexone 50 mg Tablet 50 mg PO DAILY 30 Days Qty: 30 RF: 0 melatonin 3 mg Tablet 6 mg PO BEDTIME 30 Days Qty: 60 RF: 0 folic acid 1 mg Tablet 1 mg PO DAILY 30 Days Qty: 30 RF: 0 hydrochlorothiazide 12.5 mg Tablet 12.5 mg PO DAILY 15 Days Qty: 15 RF: 0 thiamine mononitrate (vit B1) 100 mg Tablet 100 mg PO DAILY 30 Days Qty: 30 RF: 0 multivitamin with folic acid [Tab-A-Fazal] 400 mcg Tablet 1 tab PO DAILY 30 Days Qty: 30 RF: 0 Continued fluticasone propion-salmeterol [Wixela Inhub] 500-50 mcg/dose blister with device 1 ea PO BID Qty: 60 RF: 11 ferrous sulfate 324 mg (65 mg iron) tablet,delayed release (DR/EC) 324 mg PO DAILY 30 Days Qty: 90 RF: 2 albuterol sulfate 90 mcg/actuation HFA aerosol inhaler 2 puff PO Q6H PRN (Reason: Wheezing) RF: 0 medroxyprogesterone [Provera] 10 mg tablet 10 mg PO DAILY 10 Days Qty: 10 RF: 3 Discontinued lisinopril 10 mg tablet 10 mg PO DAILY Qty: 30 RF: 0 tramadol 50 mg tablet 50 mg PO TID PRN (Reason: pain) Qty: 90 RF: 0 citalopram [Celexa] 20 mg tablet 20 mg PO DAILY Qty: 90 RF: 1 Discharge Orders: Discharge Order (Routine); Ordered 11/09/20 Ordered By: Marla Lobo Diet: regular diet Activity on Discharge: As tolerated Stand Alone Forms: Patient Portal Discharge page Care Plan Goals: 1. Continue medications as prescribed. 2. Follow up with referrals Health Concerns: 1. Follow up with PCP for HTN Plan of Treatment: 1. Take medications as prescribed. 2. PHP/dual diagnosis treatment in community. Mental Status Exam Mental Status Exam Narrative: Appearance: casually groomed, good hygiene, in NAD Behavior: cooperative Psychomotor: no agitation or retardation noted Speech: clear, normal rate/rhythm/volume, spontaneous TP: linear TC: no signs of psychosis, hopeless/helpless, passive SI Mood: better Affect: brighter, non labile Insight/judgment: fair x 2. AH/VH: none Delusions: none SI:none HI: none Memory/cog: alert, oriented x 3. grossly intact to conversational testing. DS: Summary Hospital Course Hospital Course: Ms. Recio is a 50 year-old woman with hx of MDD and alcohol use who self presented to [facility] after a suicide attempt. Pt reported taking extra pills of tramadol, which she is prescribed for knee pain. In the ED, her utox was negative but BAL was 271. Pt reported drinking about 1/2 pint of vodka every other day for about 2-3 months. Pt identified multiple current stressors including her 22 year-old son had sudden onset of bilateral lower extremity weakness that affect his ability to walk and she is main caregiver since July of 2020 and she is also going through separation with who moved out of the home. On the unit, Ms. Recio presented as very withdrawn, tearful, hopeless/helpless, reporting suicidal ideation with plan to OD. She was initiated on CIWA protocol for alcohol withdrawal with ativan and gabapentin. Her SBP was elevated in 180's, tachycardia with HR in 120s. She was initially started on metoprolol 25mg po BID, which later was discontinued as pt presented with bradicardia HR in mid 40's and symptomatic. Her lisinopril was gradually increased to 30mg po daily. She was started on hydrochlorothiazide 12.5mg po daily. She did experience AH of music and people talking at night, which patient was able to identify were not there. These AH lessened as withdrawal symptoms subsided. After discussing risks, benefits and alternative treatment options, pt had been on celexa 20mg po daily since July 2020 prescribed by PCP. On the unit, pt was switched to lexapro mostly due to hospital formulary, and this medication was titrated to 20mg po daily, equivalent to 40mg po of celexa. As pt continued to endorse depressed mood, anhedonia, ruminative thoughts, feelings of worthlessness, Abilify 4mg po qhs was added to boost effect of antidepressant. She was also started on naltrexon for alcohol cravings. Pt had been on tramadol for knee pain but she agreed to discontinue this medication and try combination of acetaminophen and ibuprofen for knee pain with fair-good effect. Pt reported naltrexon was decreasing alcohol cravings. Her sleep and appetite gradually improved. Her affect gradually appeared brighter which was consistent with her reports of improved symptoms of depression. She was increasingly more visible in the unit and attended assigned groups. She was observed socializing more often with peers. She denied suicidal ideation several days prior to discharge. She agreed to continue PHP and dual diagnosis treatment. She met with control and recovery combat rescue while in the unit. Collateral information from her mother was gathered who reported no safety concerns at time of discharged. There were no incidences of disruptive behaviors nor use of restrains. Time spent discussing smoking cessation with patient: 3 to 10 minutes Status at Discharge Cognitive/behavioral status at discharge: Pt presents with brighter affect. No SI/HI. Future oriented as evidenced by statements related to looking forward to see her mother and sons, continue OP psychiatric and substance use treatment. Functional status at discharge: independent ambulation Overall status at discharge: patient is progressing back to baseline Time Spent with Patient Time attestation: Total time spent providing and/or coordinating discharge services: Time spent: Greater than 30 minutes
== END 2020-11-09 13:49 | disposition home or self-care (01) | DRG 751 ==
LOC: HO.ED 06:46 → HO.PM5 10-25 19:19
PROVIDERS: Student in an Organized Health Care Education/Training Program; Admitting Provider Psychiatry & Neurology Psychiatry; Emergency Provider Emergency Medicine; PCP Internal Medicine; Visit Provider Social Worker
DX: F33.2 Major depressive disorder, recurrent severe without psychotic features (principal); R45.851 Suicidal ideations; E66.01 Morbid (severe) obesity due to excess calories; I10 Essential (primary) hypertension; F10.139 Alcohol abuse with withdrawal, unspecified; Z68.43 Body mass index [BMI] 50.0-59.9, adult; Z20.822 Contact with and (suspected) exposure to COVID-19; Z79.899 Other long term (current) drug therapy
CPT/HCPCS: 36415; 80053; 80076; 80143; 80179; 80307; 80320; 81025; 85025; 87635; 93005; 99285

== ENCOUNTER 2020-11-25 00:56 | Emergency (ER) | payer OTHER, SELFPAY ==
[2020-11-25 01:01] VITALS: BP 136/81; BP 160/80; PULSE 70; PULSE 97; RESP 18; TEMP 36.6; O2SAT 97; BMI 64.0
--- NOTE | 2020-11-25 01:21 | ECG_ITS ---
Test Reason : ANXIETY Blood Pressure : / mmHG Vent. Rate : 087 BPM Atrial Rate : 087 BPM P-R Int : 160 ms QRS Dur : 088 ms QT Int : 376 ms P-R-T Axes : 040 005 027 degrees QTc Int : 452 ms Normal sinus rhythm Normal ECG No significant changes when compared with the previous EKG of 24 oct 2020 Referred By: Carole Carranza Electronically Signed By:ELIZABET SEQUEIRA
--- NOTE | 2020-11-25 01:22 | ED.ANXIETY ---
HPI - Anxiety General Chief Complaint: Anxiety Stated Complaint: Anxiety Time Seen by Provider: 11/25/20 01:02 Source: patient and EMS Mode of arrival: EMS Limitations: no limitations History of Present Illness HPI narrative: Patient comes emergency room complaining of anxiety. Patient states earlier this evening, patient was complaining of chronic bilateral knee pain, states her son bought oxycodone off the street, and gave her half tablet. Patient states that before going to sleep, she drank 3 beers. Soon after, patient woke up feeling very anxious. Patient denies chest pain. At this time, complaining of nausea Related Data Home Medications Medication Instructions Recorded Confirmed albuterol sulfate 90 mcg/actuation 2 puff PO Q6H PRN 07/02/20 10/24/20 aerosol inhaler Previous Rx's Medication Instructions Recorded medroxyprogesterone 10 mg tablet 10 mg PO DAILY 10 Days #10 tab 07/11/20 fluticasone 500 mcg-salmeterol 50 1 ea PO BID #60 cap 11/07/20 mcg/dose blistr powdr for inhalation aripiprazole [Abilify] 4 mg PO BEDTIME 30 Days #60 tab 11/09/20 escitalopram oxalate 20 mg PO DAILY 30 Days #30 tab 11/09/20 ferrous sulfate 324 mg PO DAILY 30 Days #90 tab 11/09/20 folic acid 1 mg PO DAILY 30 Days #30 tab 11/09/20 hydrochlorothiazide 12.5 mg PO DAILY 15 Days #15 tab 11/09/20 ibuprofen 600 mg PO Q6H PRN 15 Days #30 tab 11/09/20 lisinopril 30 mg PO DAILY 30 Days #90 tab 11/09/20 melatonin 6 mg PO BEDTIME 30 Days #60 tab 11/09/20 multivitamin with folic acid 1 tab PO DAILY 30 Days #30 tab 11/09/20 [Tab-A-Fazal] naltrexone 50 mg PO DAILY 30 Days #30 tab 11/09/20 thiamine mononitrate (vit B1) 100 mg PO DAILY 30 Days #30 tab 11/09/20 Allergies Allergy/AdvReac Type Severity Reaction Status Date / Time hydromorphone Allergy Unknown Hives Verified 10/09/20 11:34 piperacillin Allergy Unknown hives Verified 10/09/20 11:34 Review of Systems Review of Systems: Constitutional : No Weight loss, No Fever, No Chills, No Night Sweats, No Fatigue, No Malaise ENT/Mouth : No Hearing loss, No Ear Pain, No Nasal Congestion, No Sinus Pain, No Hoarseness, No sore throat, No Rhinorrhea, No Swallowing Difficulty Eyes: No Eye Pain, No Swelling, No Redness, No Foreign Body, No Discharge, No Vision Changes Cardiovascular : No Chest Pain, No Orthopnea, No Edema, draining of palpitations Respiratory : No Cough, No Sputum, No Wheezing, No Smoke Exposure, No Dyspnea Gastrointestinal : No Nausea, No Vomiting, No Diarrhea, No Constipation, No abdominal Pain, No Hematochezia, No Melena Genitourinary : no irregular bleeding, No Dysuria, No Urinary Frequency, No Hematuria, No Urinary Incontinence, No Urgency, No Flank Pain, No Urinary Flow Changes, No Hesitancy Musculoskeletal : Chronic joint pain especially in the knees, No Myalgias, No Joint Swelling Skin : No Skin Lesions, No rash Neuro : No Weakness, No Numbness, No Paresthesias, No Loss of Consciousness, No Dizziness, No Headache Psych : Feeling anxious, No Depression, No SI/HI/AH/VH, No Social Issues, Heme/Lymph: No Bruising, No Bleeding,No Lymphadenopathy Endocrine : No Polyuria, No Polydipsia, No Temperature Intolerance PMFSH Past Medical History Medical History Anemia Benign essential hypertension Morbid obesity with BMI of 50.0-59.9, adult Obstructive sleep apnea Osteoarthritis of knees, bilateral Peripheral vascular disease Vitamin D deficiency Surgical History H/O gastric bypass History of breast lift History of section History of cholecystectomy Family History Family History Father Lung cancer Liver cancer Hepatitis C Mother CVD (cerebrovascular disease) Stroke Diabetes Social History Social History (Updated 11/07/20 @ 16:18 by TAINA Barrera) Household Members: Children Housing: Apartment Alcohol intake: current Alcohol intake frequency: 0-2 drinks per day Alcohol type: beer Smoking Status: Current every day smoker Use of substances other than those prescribed or required for medical reasons: No Substance Use Type: Opiates, Painkillers and Prescription Drugs Advance Directives: No service: No Sexual orientation: Straight/Heterosexual Gender identity: female Physical Exam Vital Signs: Vital Signs: Last Vital Signs Temp 97.8 F 11/25/20 01:01 Pulse 100 11/25/20 02:03 Resp 18 11/25/20 02:03 BP 136/81 11/25/20 01:01 Pulse Ox 97 11/25/20 02:03 Body Mass Index 64.0 Appearance: Alert. Oriented X3. Feeling anxious Eyes: Pupils equal, round and reactive to light. ENT: Pharynx normal. Neck: Normal inspection. Neck supple. No lymph nodes noted. No crepitus CVS: Normal heart rate and rhythm. Pulses normal. Normal S1 and S2 Respiratory: No respiratory distress. Breath sounds normal. No Wheezing. No rales Abdomen: Soft and nontender. No rigidity. No distention. good BS x4 Skin: Skin warm and dry. Normal skin color. Normal skin turgor. Extremities: No lower extremity edema. No lower extremity edema. No Lacerations. No Rash Neuro: Oriented X 3. No motor deficit. No sensory deficit. Moving all extermities. No slurred speech. Course Course Course Narrative: Patient feeling much better. However, patient is requesting to get urine tox screen done, to find out what it was. I discussed with the patient it is possible that some of the substances do not show a positive result in the DOA. Utox pending, sign out given to Dr. Webster. Overall, patient feels much better. MDM - Anxiety Lab Data Labs: Lab Results 11/25/20 Range/Units 02:30 Urine Opiates Screen Not Detected (Not Detect) Ur Barbiturates Screen Not Detected (Not Detect) Ur Phencyclidine Scrn Not Detected (Not Detect) Ur Amphetamines Screen Not Detected (Not Detect) U Benzodiazepines Scrn Not Detected (Not Detect) Urine Cocaine Screen Not Detected (Not Detect) U Marijuana (THC) Screen Not Detected (Not Detect) ECG Data Attestation: I personally reviewed and interpreted this ECG as follows: (Sinus rhythm, heart rate 87, no ST segment depression or elevation, no T-wave inversion, QTC 452) Discharge Plan Discharge Clinical Impression: Anxiety Patient Disposition: Home, Self-Care Instructions: Anxiety (ED) Additional Instructions: Please do not use medications that are sold the street. Please follow-up with your primary care physician tomorrow. If you have any worsening or new symptoms, please return to the emergency room or call 911 Prescriptions: No Action fluticasone propion-salmeterol [Wixela Inhub] 500-50 mcg/dose blister with device 1 ea PO BID Qty: 60 RF: 11 lisinopril 10 mg Tablet 30 mg PO DAILY 30 Days Qty: 90 RF: 0 ibuprofen 600 mg Tablet 600 mg PO Q6H PRN (Reason: Pain, Moderate (Pain Scale 4-6) 15 Days Qty: 30 RF: 0 escitalopram oxalate 20 mg Tablet 20 mg PO DAILY 30 Days Qty: 30 RF: 0 aripiprazole [Abilify] 2 mg Tablet 4 mg PO BEDTIME 30 Days Qty: 60 RF: 0 naltrexone 50 mg Tablet 50 mg PO DAILY 30 Days Qty: 30 RF: 0 melatonin 3 mg Tablet 6 mg PO BEDTIME 30 Days Qty: 60 RF: 0 folic acid 1 mg Tablet 1 mg PO DAILY 30 Days Qty: 30 RF: 0 hydrochlorothiazide 12.5 mg Tablet 12.5 mg PO DAILY 15 Days Qty: 15 RF: 0 thiamine mononitrate (vit B1) 100 mg Tablet 100 mg PO DAILY 30 Days Qty: 30 RF: 0 multivitamin with folic acid [Tab-A-Fazal] 400 mcg Tablet 1 tab PO DAILY 30 Days Qty: 30 RF: 0 ferrous sulfate 324 mg (65 mg iron) tablet,delayed release (DR/EC) 324 mg PO DAILY 30 Days Qty: 90 RF: 2 albuterol sulfate 90 mcg/actuation HFA aerosol inhaler 2 puff PO Q6H PRN (Reason: Wheezing) RF: 0 medroxyprogesterone [Provera] 10 mg tablet 10 mg PO DAILY 10 Days Qty: 10 RF: 3
[2020-11-25 02:03] VITALS: PULSE 100; RESP 18; O2SAT 97
--- NOTE | 2020-11-25 02:15 | PC.NURSE ---
pt requested provider to order chiang to figure out [she] took. pt then reported anxiety about not needing to use bathroom.
[2020-11-25 03:00] LABS: Amphetamine Screen Urine Not Detected (Not Detect); Barbiturates, Urine Not Detected (Not Detect); Benzodiazepines Screen Urine Not Detected (Not Detect); Cannabinoid Screen Urine Not Detected (Not Detect); Cocaine Screen Urine Not Detected (Not Detect); Opiate Screen Urine Not Detected (Not Detect); Phencyclidine Screen Urine Not Detected (Not Detect)
[2020-11-25 03:38] VITALS: BP 140/77; PULSE 81; RESP 16; O2SAT 95
== END 2020-11-25 03:45 | disposition home or self-care (01) ==
PROVIDERS: Emergency Provider Emergency Medicine; PCP Internal Medicine
DX: F41.1 Generalized anxiety disorder (principal); F43.0 Acute stress reaction; F11.90 Opioid use, unspecified, uncomplicated; M25.562 Pain in left knee; M25.561 Pain in right knee; F17.200 Nicotine dependence, unspecified, uncomplicated; Z71.6 Tobacco abuse counseling; Z79.899 Other long term (current) drug therapy
CPT/HCPCS: 80307; 93005; 99283; 99284

== ENCOUNTER 2020-12-17 22:35 | Emergency (ER) | payer OTHER, SELFPAY ==
[2020-12-17 22:49] VITALS: BP 134/70; PULSE 94; O2SAT 98
[2020-12-17 23:03] VITALS: BP 118/60; PULSE 87; RESP 16; TEMP 36.8; O2SAT 96; BMI 48.7
--- NOTE | 2020-12-17 23:08 | ECG_ITS ---
Test Reason : CP Blood Pressure : / mmHG Vent. Rate : 085 BPM Atrial Rate : 085 BPM P-R Int : 146 ms QRS Dur : 090 ms QT Int : 388 ms P-R-T Axes : 040 009 052 degrees QTc Int : 461 ms Normal sinus rhythm Normal ECG When compared with ECG of 25-NOV-2020 01:51, Nonspecific T wave abnormality now evident in Lateral leads Referred By: Generic ED Physician Electronically Signed By:Bebeto Carroll
--- NOTE | 2020-12-18 00:37 | ED.CHESTPAIN ---
HPI - Chest Pain General Chief Complaint: Chest Pain Stated Complaint: chest pain Time Seen by Provider: 12/18/20 00:37 Source: patient Mode of arrival: ambulatory Limitations: no limitations History of Present Illness HPI narrative: Patient with no known coronary artery disease noticed sudden onset of chest pain the left parasternal area around 22:00 increases on movement of the left arm and palpation also noticed some numbness in the right hand and pain in right jaw. Patient denies any shortness of breath no diaphoresis no nausea no vomiting never had any chest pain like this before chest pain is better now. Pain was sharp in character and lasted for about 15 minutes MD complaint: chest pain Onset (ago): hour(s) Prior episodes: No Related Data Home Medications Medication Instructions Recorded Confirmed albuterol sulfate 90 mcg/actuation 2 puff PO Q6H PRN 07/02/20 12/13/20 aerosol inhaler fluticasone propion-salmeterol 1 inh INHALATION BID 12/13/20 12/13/20 [Wixela Inhub] lisinopril 10 mg PO DAILY 12/13/20 12/13/20 loperamide 2 mg PO Q6H PRN 12/13/20 12/13/20 multivitamin 1 tab PO DAILY 12/13/20 12/13/20 pantoprazole 40 mg PO DAILY 12/13/20 12/13/20 Previous Rx's Medication Instructions Recorded ferrous sulfate 324 mg PO DAILY 30 Days #90 tab 11/09/20 folic acid 1 mg PO DAILY 30 Days #30 tab 11/09/20 hydrochlorothiazide 12.5 mg PO DAILY 15 Days #15 tab 11/09/20 thiamine mononitrate (vit B1) 100 mg PO DAILY 30 Days #30 tab 11/09/20 medroxyprogesterone 10 mg tablet 10 mg PO DAILY 10 Days #10 tab 11/28/20 aripiprazole [Abilify] 5 mg PO DAILY #30 tab 12/13/20 escitalopram oxalate 20 mg PO DAILY 30 Days #30 tab 12/13/20 gabapentin 100 mg PO BEDTIME #30 cap 12/13/20 naltrexone 50 mg PO DAILY 30 Days #30 tab 12/13/20 trazodone 50 mg PO BEDTIME PRN #30 tab 12/13/20 ibuprofen 600 mg PO Q6H PRN #20 tab 12/18/20 Allergies Allergy/AdvReac Type Severity Reaction Status Date / Time piperacillin Allergy Unknown hives Verified 12/17/20 23:08 Review of Systems Review of Systems: Constitutional : No Weight loss, No Fever, No Chills ENT/Mouth : No sore throat, No Rhinorrhea Eyes: No Eye Pain, No Swelling Cardiovascular : + Chest Pain, no palpitations Respiratory : No Cough, No Sputum, no shortness of breath Gastrointestinal : no Nausea, No Vomiting, No Diarrhea, No abdominal Pain, no black stools Genitourinary : No Dysuria, No Urinary Frequency Musculoskeletal : No joint pain, No Myalgias, No Joint Swelling Skin : No Skin Lesions, No rash Neuro : No Weakness, No Numbness, No Dizziness, No Headache Psych : No Anxiety/Panic, No Depression Heme/Lymph: No Bruising, No Lymphadenopathy Endocrine : No Polyuria, No Polydipsia All other systems reviewed and are negative [facility] Past Medical History Medical History Anemia Benign essential hypertension Morbid obesity with BMI of 50.0-59.9, adult Obstructive sleep apnea Osteoarthritis of knees, bilateral Peripheral vascular disease Vitamin D deficiency Surgical History H/O gastric bypass History of breast lift History of section History of cholecystectomy Family History Family History Father Lung cancer Liver cancer Hepatitis C Mother CVD (cerebrovascular disease) Stroke Diabetes Social History Social History Household Members: Family Housing: Apartment Alcohol intake: current Alcohol intake frequency: holidays/special occasions only Alcohol type: beer Smoking Status: Unknown if ever smoked Substance Use Type: Opiates, Painkillers and Prescription Drugs Advance Directives: No service: No Sexual orientation: Straight/Heterosexual Gender identity: female Physical Exam Vital Signs: Vital Signs: Last Vital Signs Temp 98.3 F 12/17/20 23:03 Pulse 81 12/18/20 01:20 Resp 15 12/18/20 01:20 BP 114/57 L 12/18/20 01:20 Pulse Ox 97 12/18/20 01:20 Body Mass Index 48.7 Appearance: Alert. Oriented X3. No acute distress. Eyes: Pupils equal, round and reactive to light. ENT: Pharynx normal. Neck: Normal inspection. Neck supple. CVS: Normal heart rate and rhythm. Pulses normal. Left 2nd intercostal space tenderness++ Respiratory: No respiratory distress. Breath sounds normal. Abdomen: Soft and nontender. Bowel sounds are present, no mass palpable, no CVA tenderness Skin: Skin warm and dry. Normal skin color. Normal skin turgor. Extremities: No lower extremity edema. No calf tenderness Neuro: Oriented X 3. No motor deficit. No sensory deficit. MDM - Chest Pain MDM Narrative Medical decision making narrative: Patient has atypical chest pain tender on palpation to light touch left 2nd intercostal space initial troponin is negative EKG is normal heart score is 1. Will discharge patient home on ibuprofen advised to follow up with primary care doctor Lab Data Attestation: I reviewed the patient's lab results. Result diagrams: 12/18/20 01:11 12/18/20 01:11 Labs: Lab Results 12/18/20 12/18/20 12/18/20 Range/Units 01:11 01:11 01:11 WBC 7.4 (4.8-10.8) X10*3/uL RBC 4.19 L (4.20-5.50) X10*6/uL Hgb 12.2 (12.0-16.0) g/dl Hct 38.3 (37-47) % MCV 91.4 (80-98) fL MCH 29.1 (27.0-33.0) pg MCHC 31.9 (31.0-35.0) g/dl RDW 15.0 (11.0-16.0) % Plt Count 346 (160-400) X10*3/uL MPV 9.1 L (9.4-12.3) fL Immature Gran % (Auto) 0.3 (0.0-0.4) % Neut % (Auto) 55.8 (45-73) % Lymph % (Auto) 34.0 (20-40) % Terry % (Auto) 6.2 (2-11) % Eos % (Auto) 3.2 (0-4) % Baso % (Auto) 0.5 (0-2) % Lymph # (Auto) 2.5 (1.2-4.9) X10*3/uL Terry # (Auto) 0.5 (0.1-1.2) X10*3/uL Eos # (Auto) 0.2 (0.0-0.4) X10*3/uL Baso # (Auto) 0.0 (0.0-0.2) X10*3/uL Abs Immat Gran (auto) 0.02 (0.00-0.03) X10*3/uL Absolute Neuts (auto) 4.2 (2.0-8.3) X10*3/uL Absolute Nucleated RBC 0.000 (0.0-0.012) X10*3/uL Nucleated RBC % (auto) 0.0 (0.0-0.2) /100WBC Sodium 138 (135-145) mmol/L Potassium 3.8 (3.3-5.1) mmol/L Chloride 103 (96-108) mmol/L Carbon Dioxide 22 (22-29) mmol/L Anion Gap 17 (12-20) BUN 12 (9-16) mg/dL Creatinine 0.77 (0.5-1.4) mg/dL Estim Creat Clear Calc 143.4 Estimated GFR > 60 Random Glucose 110 (60-115) mg/dL Calcium 8.8 D (8.4-10.2) mg/dL Troponin I High Sens 4.7 (<3.5-17.0) ng/L ECG Data ECG #1: Attestation: I personally reviewed and interpreted this ECG as follows: Interpretation: Normal sinus rhythm heart rate 85 beats per minute normal intervals normal axis no acute ST T wave changes impression normal EKG Discharge Plan Discharge Clinical Impression: Chest pain Qualifiers: Chest pain type: precordial pain Qualified Code(s): R07.2 - Precordial pain Patient Disposition: Home, Self-Care Instructions: Chest Pain (ED), Chest Wall Pain (ED) Additional Instructions: The chest pain is likely musculoskeletal in origin, please take ibuprofen 1 tablet every 6 hours as needed. Follow with PCP for further evaluation report to the ER if chest pain gets worse Prescriptions: New ibuprofen 600 mg tablet 600 mg PO Q6H PRN (Reason: pain) Qty: 20 RF: 0 No Action medroxyprogesterone 10 mg tablet 10 mg PO DAILY 10 Days Qty: 10 RF: 9 folic acid 1 mg Tablet 1 mg PO DAILY 30 Days Qty: 30 RF: 0 hydrochlorothiazide 12.5 mg Tablet 12.5 mg PO DAILY 15 Days Qty: 15 RF: 0 thiamine mononitrate (vit B1) 100 mg Tablet 100 mg PO DAILY 30 Days Qty: 30 RF: 0 ferrous sulfate 324 mg (65 mg iron) tablet,delayed release (DR/EC) 324 mg PO DAILY 30 Days Qty: 90 RF: 2 lisinopril 10 mg tablet 10 mg PO DAILY RF: 0 multivitamin Tablet 1 tab PO DAILY RF: 0 loperamide 2 mg Capsule 2 mg PO Q6H PRN (Reason: Diarrhea) RF: 0 pantoprazole 40 mg Tablet,Delayed Release (Dr/Ec) 40 mg PO DAILY RF: 0 fluticasone propion-salmeterol [Wixela Inhub] 500-50 mcg/dose Blister With Device 1 inh INHALATION BID RF: 0 aripiprazole [Abilify] 5 mg tablet 5 mg PO DAILY Qty: 30 RF: 0 trazodone 50 mg tablet 50 mg PO BEDTIME PRN (Reason: insomnia) Qty: 30 RF: 0 naltrexone 50 mg Tablet 50 mg PO DAILY 30 Days Qty: 30 RF: 0 gabapentin 100 mg capsule 100 mg PO BEDTIME Qty: 30 RF: 0 escitalopram oxalate 20 mg Tablet 20 mg PO DAILY 30 Days Qty: 30 RF: 0 albuterol sulfate 90 mcg/actuation HFA aerosol inhaler 2 puff PO Q6H PRN (Reason: Wheezing) RF: 0
[2020-12-18 01:20] VITALS: BP 114/57; PULSE 81; RESP 15; O2SAT 97
[2020-12-18 01:20] LABS: Basophils Percent Auto 0.5 % (0-2); Eosinophils Absolute Auto 0.2 X10*3/uL (0.0-0.4); Eosinophils Percent Auto 3.2 % (0-4); Hematocrit 38.3 % (37-47); Hemoglobin 12.2 g/dl (12.0-16.0); Imm Gran Abs Auto 0.02 X10*3/uL (0.00-0.03); Imm Gran Pct Auto 0.3 % (0.0-0.4); Lymphocytes Absolute Auto 2.5 X10*3/uL (1.2-4.9); MANUAL DIFF FLAG NO; Mean Corpuscular HGB Conc 31.9 g/dl (31.0-35.0); Mean Corpuscular Hemoglobin 29.1 pg (27.0-33.0); Mean Corpuscular Volume 91.4 fL (80-98); Mean Platelet Volume 9.1 fL (9.4-12.3); Monocytes Absolute Auto 0.5 X10*3/uL (0.1-1.2); Monocytes Percent Auto 6.2 % (2-11); Neutrophils Absolute Auto 4.2 X10*3/uL (2.0-8.3); Neutrophils Percent Auto 55.8 % (45-73); Platelet Count 346 X10*3/uL (160-400); Red Blood Count 4.19 X10*6/uL (4.20-5.50); White Blood Count 7.4 X10*3/uL (4.8-10.8)
[2020-12-18 01:50] LABS: Anion Gap 17 (12-20); Blood Urea Nitrogen 12 mg/dL (9-16); Calcium 8.8 mg/dL (8.4-10.2); Carbon Dioxide 22 mmol/L (22-29); Chloride 103 mmol/L (96-108); Creatinine Clr Calc Pharmacy 143.4; Estimated Glomerular Filt Rate > 60; Glucose Random 110 mg/dL (60-115); Potassium 3.8 mmol/L (3.3-5.1); Sodium 138 mmol/L (135-145)
[2020-12-18 01:57] LABS: Troponin-I High Sensitivity 4.7 ng/L (<3.5-17.0)
[2020-12-18 02:00] VITALS: BP 131/74; PULSE 81; RESP 16; O2SAT 97
[2020-12-18] MEDS: Ibuprofen 600 MG TABLET PO (02:30)
== END 2020-12-18 02:50 | disposition home or self-care (01) ==
PROVIDERS: Emergency Provider Internal Medicine; PCP Internal Medicine
DX: R07.2 Precordial pain (principal); I10 Essential (primary) hypertension
CPT/HCPCS: 36415; 80048; 84484; 85025; 93005; 99283; 99284

== ENCOUNTER 2020-12-20 09:00 | Outpatient (RCR) | payer OTHER, SELFPAY ==
[2020-12-13 13:04] VITALS: BMI 48.7
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
--- NOTE | 2020-12-13 13:56 | PC.ADMIT ---
Patient is a 50 year old female who was referred by / where she was admitted after an intentional overdose with ETOH and pt reports ingesting 15-16 Tramadol tabs which patient has been prescribed. After the overdose patient called for help. BAL in the ER was 271. Patient reports stresses include being from her , work stress, and her son suddenly presenting with bilateral leg weakness affecting his ability to walk to the point where patient needed to care for her son. Patient reports hx of binge drinking on the weekends. She was admitted to [facility] on 10/25/20-11/09/20. Patient reported to this sports book writer that she was binge drinking prior to hospitalization drinking 12-15 beers at a time on the weekends. She reports since hospitalization she relapsed 2 times drinking a 6 pack of beer last Thursday and reports having a 6 pack of beer last night. Patient is on medication assisted substance abuse treatment with Naltrexone. Patient denied any withdrawal sxs. Educated patient about the dangers of ETOH withdrawal and the mental and physical health effects of heavy ETOH use. Patient wants to continue in the program and is aware that if she is unable to maintain sobriety we will refer her to a substance IOP. Recommended that in addition to attending PHP patient attend online substance use groups for more support with early sobriety. Of note, according to / paperwork patient reported drinking 1/2 pint of vodka every other day for about 2-3 months. Team is aware. Patient presents with depressed mood and affect. Denied Si or thoughts to harm self. Medications verified with patient and patient's pharmacy. Patient gave verbal permission to email her a copy of her safety plan.
--- NOTE | 2020-12-19 09:24 | PC.NURSE ---
Patient called and left a message 12/18/20 stating she is at [facility] ER d/t c/o chest pain and will not be attending the program on that day.
--- NOTE | 2020-12-19 09:32 | PC.NURSE ---
Patient called out today as she stated she was not feeling well and not feeling like herself and was not going to be able to attend the program today. Pt feeling tired however he did state she slept well last night. She stated while she was in the ER they did labs and other tests d/t complaints of chest pain which patient stated came back negative. Denied chest pain currently. Patient is currently waiting for her PCP to call back with a f/u appointment. Plans on attending the program on .
--- NOTE | 2020-12-20 14:19 | HO.PHPPROGNO ---
Subjective Subjective Date of Service: 12/20/20 Reason For Visit: depression Interim History: NO SHOW Diagnostics Vital Signs (24Hr): Body Mass Index 48.7 Assessment & Plan Assessment & Plan (1) MDD (major depressive disorder), recurrent episode, severe: Qualifiers: Psychotic features: without psychotic features Qualified Code(s): F33.2 - Major depressive disorder, recurrent severe without psychotic features Status: Acute Code(s): F33.2 - Major depressive disorder, recurrent severe without psychotic features Assessment and Plan: NO SHOW Certification I certify that partial hospital treatment is medically necessary due to the symptoms and problems resulting from the patient's mental illness and the failure to treat the patient at the partial hospital level of care would likely result in the patient requiring inpatient psychiatric care which could not be prevented at a less intensive level of care. Greater than 50% of the session was spent on counseling and/or coordination of care Discharge Plan Discharge Attending provider: Navjot Mary Medications: New aripiprazole [Abilify] 5 mg tablet 5 mg PO DAILY Qty: 30 RF: 0 trazodone 50 mg tablet 50 mg PO BEDTIME PRN (Reason: insomnia) Qty: 30 RF: 0 Continued naltrexone 50 mg Tablet 50 mg PO DAILY 30 Days Qty: 30 RF: 0 gabapentin 100 mg capsule 100 mg PO BEDTIME Qty: 30 RF: 0 escitalopram oxalate 20 mg Tablet 20 mg PO DAILY 30 Days Qty: 30 RF: 0 Discontinued melatonin 3 mg Tablet 6 mg PO BEDTIME 30 Days Qty: 60 RF: 0 No Action medroxyprogesterone 10 mg tablet 10 mg PO DAILY 10 Days Qty: 10 RF: 9 folic acid 1 mg Tablet 1 mg PO DAILY 30 Days Qty: 30 RF: 0 hydrochlorothiazide 12.5 mg Tablet 12.5 mg PO DAILY 15 Days Qty: 15 RF: 0 thiamine mononitrate (vit B1) 100 mg Tablet 100 mg PO DAILY 30 Days Qty: 30 RF: 0 ferrous sulfate 324 mg (65 mg iron) tablet,delayed release (DR/EC) 324 mg PO DAILY 30 Days Qty: 90 RF: 2 lisinopril 10 mg tablet 10 mg PO DAILY RF: 0 multivitamin Tablet 1 tab PO DAILY RF: 0 loperamide 2 mg Capsule 2 mg PO Q6H PRN (Reason: Diarrhea) RF: 0 pantoprazole 40 mg Tablet,Delayed Release (Dr/Ec) 40 mg PO DAILY RF: 0 fluticasone propion-salmeterol [Wixela Inhub] 500-50 mcg/dose Blister With Device 1 inh INHALATION BID RF: 0 ibuprofen 600 mg tablet 600 mg PO Q6H PRN (Reason: pain) Qty: 20 RF: 0 albuterol sulfate 90 mcg/actuation HFA aerosol inhaler 2 puff PO Q6H PRN (Reason: Wheezing) RF: 0
--- NOTE | 2020-12-21 09:55 | PC.NURSE ---
Patient did not show up to the community meeting. She returned staff phone call and stated she was tired this morning as she woke up at 3 am and took Melatonin to go back to sleep thus missing the community meeting and the start of the first group. Patient is aware that she has missed too many days and will need a reassessment as a result. She is aware that Adelaida H will reach out to her to reschedule. Assessed patient for safety. Patient denied SI or thoughts to harm self. Reports that she is safe.
--- NOTE | 2020-12-24 13:11 | PC.NURSE ---
I called and LM for pt's therapsist, Vidhya Echols ([phone]), at [facility]. I let her know of pt's discharge from [facility].
== END 2020-12-24 10:17 | disposition home or self-care (01) ==
LOC: HO.PHPA 09:00
PROVIDERS: Visit Provider Psychiatry & Neurology Psychiatry
DX: F33.2 Major depressive disorder, recurrent severe without psychotic features (principal); F10.10 Alcohol abuse, uncomplicated
CPT/HCPCS: 90791; 90853

== ENCOUNTER 2020-12-26 11:00 | Outpatient (RCR) | payer OTHER, SELFPAY ==
--- NOTE | 2021-01-31 12:33 | MHC.PT.DC ---
[facility] [place] [facility] [place] Office [place] Office [address] Samson Lopez [address] [facility] [phone] F: [phone] F: [phone] F: [phone] F: [phone] Physical Therapy Discharge Report Diagnosis: GÓMEZ KNEE PAIN Date of Surgery: Date of Evaluation: 12/19/20 Date of Discharge: 01/31/21 Treatments to Date: 2 Cancellations to Date: 3 No Shows to Date: 3 Discharge Status: Patient Elected to Stop Visit Non-compliance Discharge Summary: MULTIPLE CANCELS AND NO SHOWS, DCed PER DEPARTMENT POLICY. CURRENT STATUS IS UNKNOWN. Electronically signed by: DOM GREGORY PT, DPT Please sign and return to therapist. Thank you for your referral.
== END 2021-01-31 12:27 | disposition other institution (70) ==
LOC: HO.PT 11:00
PROVIDERS: PCP Internal Medicine; Visit Provider Internal Medicine
DX: M25.561 Pain in right knee (principal)
CPT/HCPCS: 97110; 97140; 97162; 97535

== ENCOUNTER → 2021-01-02 09:45 | Outpatient (BNVA) | payer OTHER, SELFPAY | PROVIDERS: PCP Internal Medicine; Visit Provider Orthopaedic Surgery | DX: M17.0 Bilateral primary osteoarthritis of knee (principal) | CPT/HCPCS: 20610; 99202; J1040 ==

== ENCOUNTER 2021-01-08 08:45 | Outpatient (RCR) | payer OTHER, SELFPAY | END 2021-01-08 08:46 | disposition home or self-care (01) | LOC: HO.PHPA 08:45 | PROVIDERS: PCP Internal Medicine; Visit Provider Psychiatry & Neurology Psychiatry | DX: F32.9 Major depressive disorder, single episode, unspecified (principal) ==

== ENCOUNTER 2021-02-23 09:40 | Outpatient (REF) | payer OTHER, SELFPAY ==
--- NOTE | ~2021-02-23 | MM_ITS ---
EXAMINATION: MM SCREENING DIGITAL BREAST TOMOSYNTHESIS, BILATERAL CLINICAL INFORMATION: Screening. Asymptomatic. The lifetime risk of breast cancer based on the Tyrer-Cuzick Model is 9.3%. COMPARISON: Mammography: April 20, 2019 and studies dating back to May 07, 2012 TECHNIQUE: Digital breast tomosynthesis is performed in both the craniocaudal and mediolateral oblique views along with computer-aided detection (CAD). Synthesized 2D images are generated from the tomosynthesis. Cleavage view performed. FINDINGS: The breasts are almost entirely fatty (ACR BI-RADS breast composition Category a). There is a stable parenchymal pattern seen bilaterally with regions of stable scarring. No new abnormal dominant mass or suspicious grouping of microcalcifications identified. MM/MM tomosynthesis screening BI IMPRESSION: There are no significant changes from prior study. ASSESSMENT: BI-RADS 2: Benign RECOMMENDATION: Routine annual mammography screening. This patient's information was entered into a reminder system with a target due date for their next mammogram.
[2021-02-24 07:26] LABS: Follicle Stimulating Hormone 20.7 mIU/mL; Prolactin 4.8 ng/mL
== END 2021-02-23 09:41 | disposition home or self-care (01) ==
LOC: HO.MAMMO 09:40
PROVIDERS: Absent Provider Obstetrics & Gynecology; PCP Internal Medicine; Visit Provider Internal Medicine
DX: Z12.31 Encounter for screening mammogram for malignant neoplasm of breast (principal); N91.2 Amenorrhea, unspecified
CPT/HCPCS: 36415; 77063; 77067; 83001; 84146

== ENCOUNTER → 2021-04-08 10:45 | Outpatient (BNVA) | payer OTHER, SELFPAY | PROVIDERS: PCP Internal Medicine; Visit Provider Obstetrics & Gynecology ==

== ENCOUNTER 2021-06-28 08:21 | Outpatient (REF) | payer OTHER, SELFPAY ==
[2021-06-28 08:39] LABS: MANUAL DIFF FLAG NO
[2021-06-28 08:49] LABS: Basophils Percent Auto 0.4 % (0-2); Eosinophils Absolute Auto 0.5 X10*3/uL (0.0-0.4); Eosinophils Percent Auto 6.7 % (0-4); Hematocrit 39.4 % (37-47); Hemoglobin 12.4 g/dl (12.0-16.0); Imm Gran Abs Auto 0.02 X10*3/uL (0.00-0.03); Imm Gran Pct Auto 0.3 % (0.0-0.4); Lymphocytes Absolute Auto 1.9 X10*3/uL (1.2-4.9); Lymphocytes Percent Auto 25.3 % (20-40); Mean Corpuscular HGB Conc 31.5 g/dl (31.0-35.0); Mean Corpuscular Hemoglobin 28.4 pg (27.0-33.0); Mean Corpuscular Volume 90.4 fL (80-98); Mean Platelet Volume 9.9 fL (9.4-12.3); Monocytes Absolute Auto 0.5 X10*3/uL (0.1-1.2); Neutrophils Absolute Auto 4.6 X10*3/uL (2.0-8.3); Neutrophils Percent Auto 60.3 % (45-73); Platelet Count 352 X10*3/uL (160-400); Red Blood Count 4.36 X10*6/uL (4.20-5.50); Red Cell Distribution Width 14.1 % (11.0-16.0); White Blood Count 7.7 X10*3/uL (4.8-10.8)
[2021-06-28 09:18] LABS: Alanine Aminotransferase 18 U/L (0-31); Alkaline Phosphatase 103 U/L (39-117); Anion Gap 11 (12-20); Aspartate Amino Transferase 20 U/L (5-31); Bilirubin Total 0.4 mg/dL (0.0-1.0); Blood Urea Nitrogen 11 mg/dL (9-16); Calcium 9.1 mg/dL (8.4-10.2); Carbon Dioxide 29 mmol/L (22-29); Chloride 105 mmol/L (96-108); Cholesterol 192 mg/dL; Estimated Glomerular Filt Rate > 60; Glucose Random 94 mg/dL (60-115); HDL Cholesterol 68 mg/dL; LDL Cholesterol Calculated 111 mg/dl; Potassium 4.3 mmol/L (3.3-5.1); Sodium 141 mmol/L (135-145); Triglycerides 65 mg/dL
[2021-06-28 09:40] LABS: Free T4 (Free Thyroxine) 1.07 ng/dL (0.71-1.85); Thyroid Stimulating Hormone 0.91 uIU/mL (0.32-4.0); Vitamin D 25-OH Total 13.7 ng/mL (>30)
[2021-06-28 10:01] LABS: Folate > 20.0 ng/mL (> or = 4.0); Vitamin B12 346 pg/mL (200-900)
== END 2021-06-28 08:22 | disposition home or self-care (01) ==
LOC: HO.LAB 08:21
PROVIDERS: PCP Internal Medicine; Visit Provider Internal Medicine
DX: I73.9 Peripheral vascular disease, unspecified (principal); E78.00 Pure hypercholesterolemia, unspecified
CPT/HCPCS: 36415; 80053; 80061; 82306; 82607; 82746; 84439; 84443; 85025

== ENCOUNTER → 2021-07-02 13:40 | Outpatient (BNVA) | payer OTHER, SELFPAY | PROVIDERS: PCP Internal Medicine; Visit Provider Physician Assistant | DX: M17.0 Bilateral primary osteoarthritis of knee (principal) | CPT/HCPCS: 99212; J1040 ==

== ENCOUNTER → 2021-09-30 13:50 | Outpatient (BNVA) | payer OTHER, SELFPAY | PROVIDERS: PCP Internal Medicine; Visit Provider Obstetrics & Gynecology ==

== ENCOUNTER → 2021-10-02 10:46 | Outpatient (BNVA) | payer OTHER, SELFPAY | PROVIDERS: PCP Internal Medicine; Referring Provider Internal Medicine; Visit Provider Physician Assistant | DX: E66.01 Morbid (severe) obesity due to excess calories (principal); G47.33 Obstructive sleep apnea (adult) (pediatric); I10 Essential (primary) hypertension; F10.10 Alcohol abuse, uncomplicated; Z98.84 Bariatric surgery status; Z68.43 Body mass index [BMI] 50.0-59.9, adult; Z98.890 Other specified postprocedural states | CPT/HCPCS: 99202 ==

== ENCOUNTER → 2021-12-18 09:11 | Outpatient (BNVA) | payer OTHER, SELFPAY | PROVIDERS: PCP Internal Medicine; Referring Provider Internal Medicine; Visit Provider Physician Assistant | DX: Z01.818 Encounter for other preprocedural examination (principal); G47.33 Obstructive sleep apnea (adult) (pediatric) | CPT/HCPCS: 99202 ==

== ENCOUNTER 2022-04-07 14:23 | Day surgery (SDC) | payer OTHER, SELFPAY ==
[2022-03-20 15:08] VITALS: BMI 48.5
--- NOTE | 2022-04-04 09:35 | P.CONAN_ITS ---
Documented by User: Marialuisa Swenson NP 04/04/22 09:36 HPI - Anesthesia Eval Consult details Narrative: 51yo F for Colonoscopy PMFSH Active Problems Active Problems: All Active Problems (Updated 03/20/22 @ 09:07 by Jewels Plasencia RN) Gait instability (Acute) Anovulatory amenorrhea (Acute) Knee pain, bilateral (Acute) Asthma (Acute) Iron deficiency anemia (Acute) MDD (major depressive disorder), recurrent episode, severe (Acute) Alcohol abuse (Acute) Primary osteoarthritis of knees, bilateral (Acute) Vitamin B 12 deficiency (Acute) Peripheral vascular disease (Acute) Well woman exam (Acute) Amenorrhea (Acute) S/P panniculectomy (Acute) Annual physical exam (Acute) Colon cancer screening (Acute) H/O gastric bypass (Acute) Vitamin D deficiency (Acute) Benign essential hypertension (Acute) Obstructive sleep apnea (Acute) Morbid obesity with BMI of 50.0-59.9, adult (Acute) Osteoarthritis of knees, bilateral (Acute) Past Medical History Medical History Anemia Anxiety Asthma exacerbation Benign essential hypertension Injury, foot Morbid obesity with BMI of 50.0-59.9, adult Obstructive sleep apnea Osteoarthritis of knees, bilateral Peripheral vascular disease PTSD (post-traumatic stress disorder) Vitamin D deficiency Family History Family History Father Lung cancer Liver cancer Hepatitis C Mother CVD (cerebrovascular disease) Stroke Diabetes Brother PTSD (post-traumatic stress disorder) Sister Hx of sleep apnea Asthma Son No problems noted. Son Asperger's syndrome Other Mental health disorder Surgical History Surgical History H/O gastric bypass History of breast lift History of section History of cholecystectomy Social History Social History Household Members: Family Housing: Apartment Are you a primary healthcare financial analyst to a significant other at home: No Do you presently have visiting nurse or other home services: No Alcohol intake: current Alcohol intake frequency: holidays/special occasions only Patient Tobacco Use Status: Never used Tobacco e-Cigarette/Vaping Use: Never Used Second Hand Smoke Exposure: No Use of substances other than those prescribed or required for medical reasons: No Substance Use Type: Opiates, Painkillers and Prescription Drugs Have you been hit, kicked, punched, or otherwise hurt by someone within the past year? 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 Sexual orientation: Straight/Heterosexual Gender identity: Female Cognitive needs: No Hearing needs: No Vision needs: No Meds Allergies Allergy/AdvReac Type Severity Reaction Status Date / Time piperacillin Allergy Unknown hives Verified 02/17/22 16:30 Home Medications Medication Instructions Recorded Confirmed Last Taken Type fluticasone 500 mcg-salmeterol 50 1 inh inhalation BID 12/13/20 03/20/22 12/13/20 08:30 History mcg/dose blistr powdr for inhalation (Wixela Inhub) multivitamin 1 tab PO DAILY 12/13/20 03/20/22 12/13/20 08:30 History pantoprazole 40 mg tablet,delayed 40 mg PO DAILY 12/13/20 03/20/22 Unknown H istory release betamethasone dipropionate 0.05 % 1 appl topical DAILY PRN as 03/07/21 03/20/22 Unknown History topical cream directed Exam Exam Date and Time: April 04, 2022 0935 Height,Weight and Vital Signs: Height 5 ft 11 in Weight 157.85 kg Assessment and Plan Assessment Anesthesia Assessment: Chart Reviewed Documented by User: Malgorzata Long MD 04/07/22 14:44 [facility] Past Medical History Medical History Anemia Anxiety Asthma exacerbation Benign essential hypertension Injury, foot Morbid obesity with BMI of 50.0-59.9, adult Obstructive sleep apnea Osteoarthritis of knees, bilateral Peripheral vascular disease PTSD (post-traumatic stress disorder) Vitamin D deficiency Family History Family History Father Lung cancer Liver cancer Hepatitis C Mother CVD (cerebrovascular disease) Stroke Diabetes Brother PTSD (post-traumatic stress disorder) Sister Hx of sleep apnea Asthma Son No problems noted. Son Asperger's syndrome Other Mental health disorder Surgical History Surgical History H/O gastric bypass History of breast lift History of section History of cholecystectomy History of Problems with Anesthesia: No Social History Social History Household Members: Family Housing: Apartment Are you a primary healthcare financial analyst to a significant other at home: No Do you presently have visiting nurse or other home services: No Alcohol intake: current Alcohol intake frequency: holidays/special occasions only Patient Tobacco Use Status: Never used Tobacco e-Cigarette/Vaping Use: Never Used Second Hand Smoke Exposure: No Use of substances other than those prescribed or required for medical reasons: No Substance Use Type: Opiates, Painkillers and Prescription Drugs Have you been hit, kicked, punched, or otherwise hurt by someone within the past year? 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 Sexual orientation: Straight/Heterosexual Gender identity: Female Cognitive needs: No Hearing needs: No Vision needs: No Meds Allergies Allergy/AdvReac Type Severity Reaction Status Date / Time piperacillin Allergy Unknown hives Verified 02/17/22 16:30 Home Medications Medication Instructions Recorded Confirmed Last Taken Type fluticasone 500 mcg-salmeterol 50 1 inh inhalation BID 12/13/20 03/20/22 12/13/20 08:30 History mcg/dose blistr powdr for inhalation (Wixela Inhub) multivitamin 1 tab PO DAILY 12/13/20 03/20/22 12/13/20 08:30 History pantoprazole 40 mg tablet,delayed 40 mg PO DAILY 12/13/20 03/20/22 Unknown History release betamethasone dipropionate 0.05 % 1 appl topical DAILY PRN as 03/07/21 03/20/22 Unknown History topical cream directed Exam Airway Mallampati Class: III TM Dist: >3cm Neck ROM: Full Loose/Missing/Broken Teeth: No Heart: RRR Lungs: CTA Assessment and Plan Assessment Anesthesia Assessment: Anesthesia Plan Discussed Final Anesthetic Review History of Problems with Anesthesia: No NPO: Yes ASA Class: III Final Preanesthetic Review: Meds/Allgs Chart Reviewed, Consent Obtained/Reviewed, Anes Risks/Benef Reviewed and DNR Form (If Appl.) Patient Risk: Intermediate Procedure Risk: Low Anesthetic Plan Anesthetic Plan: MAC: Disposition: Standard PACU
--- NOTE | 2022-04-07 14:23 | MHC.SHP ---
Pre-Procedural Eval Section A Date of Service: 04/07/22 The patient is an INPATIENT: No The History & Physical has been completed within 30 days and I have reviewed it.: No Section B Chief Complaint: screening Details of Present Illness: colon cancer screening Relevant Family History (Specify if Yes): Yes Relevant Social History: None Present Medications: see Short Stay Collaborative assessment Medical History: Significant History (Anemia Asthma exacerbation Benign essential hypertension Injury, foot Morbid obesity with BMI of 50.0-59.9, adult Obstructive sleep apnea Osteoarthritis of knees, bilateral Peripheral vascular disease Vitamin D deficiency) History of Previous Operations: Relevant previous surgery/procedure and date(s) (H/O gastric bypass History of breast lift History of section History of cholecystectomy) Allergies: Allergies Allergy/AdvReac Type Severity Reaction Status Date / Time piperacillin Allergy Unknown hives Verified 02/17/22 16:30 Review of Systems Sugical H&P ROS: Negative: Constitution, Cardiovascular and Gastrointestinal and Yes, Specify: Respiratory (asthma) Exam Surgical H&P Exam: Normal: Heart, Normal: Lungs, Normal: Extremities and Normal: Abdomen Plan Diagnosis/Plan: Unchanged I have reviewed the history and physical and performed a pertinent physical examination on my patient. No changes have occurred unless specified.
[2022-04-07 14:34] VITALS: BP 156/77; PULSE 91; RESP 18; TEMP 36.7; O2SAT 95
[2022-04-07] MEDS: Lactated Ringers 1,000 ML 100 ML IVCONT (14:40)
--- NOTE | 2022-04-07 14:50 | PM.OP ---
Brief Operative Note Date of Service: 04/07/22 Pre-op diagnosis: Colon cancer screening Post-op diagnosis: other (Poor prep - procedure was discontinued) Procedure: FLEXIBLE SIGMOIDOSCOPY TILL 45 CM Consent: Indications for the procedure and potential complications of bleeding, perforation, reaction to medications and missed diagnosis were discussed with the patient and informed consent was obtained. Instrument: Olympus CF H 190 L variable stiffness adult colonoscope Monitoring: Vital signs and clinical assessment, intermittent blood pressure monitoring, continuous EKG monitoring, Pulse oximetry and Carbon Dioxide monitoring were done throughout the procedure. Procedure: The patient was placed in the left lateral decubitis position and pre-procedure medications were administered. After a digital rectal examination of the ano-rectum, the video colonoscope was inserted into the rectum and advanced through the colon to the 45 cms. It was not possible to advanced due to presence of solid stools throughout the colon. The colonoscopy was removed and procedure was discontinued. Findings: Sigmoid Colon: Not evaluated due to poor prep Rectum: Not evaluated due to poor prep Ano-rectum: Rectal exam was normal. Colon preparation: poor Impression and Post Procedure Diagnosis: Flexible sigmoidoscopy Findings: The video colonoscope was inserted into the rectum and advanced through the colon to the 45 cms. It was not possible to advanced due to presence of solid stools throughout the colon. The colonoscopy was removed and procedure was discontinued. Plan: Patient has an appointment on 04/30/22 in the GI Clinic with TAINA Kaminski. Above findings were reviewed with the patient and she noted that she took only 2 glasses of Miralax. Pt was advised to reschedule her colonoscopy appt and take the following prep (sent to her preferred pharmacy) Duloclax 2 tablets daily at 5 pm starting 2 days prior to her colonoscopy appt. Miralax split prep. Pt was advised to take 2 days off from work - to prep and for the procedure - she will need a work note. Surgeon: Isabel Torres MD Anesthesia: MAC (Dr Long) Was an Welder Apprentice Combination used for this Procedure?: Yes Welder Apprentice Combination: Casimiro Amos Estimated blood loss (mL): 0 Pathology: none sent Condition: stable Disposition: PACU
--- NOTE | 2022-04-07 15:07 | W.PM.OPN ---
Operative Note Operative Note Date of Service: 04/07/22 Narrative: Pre-op diagnosis: Colon cancer screening Post-op diagnosis: other (Poor prep - procedure was discontinued) Procedure: FLEXIBLE SIGMOIDOSCOPY TILL 45 CM Consent: Indications for the procedure and potential complications of bleeding, perforation, reaction to medications and missed diagnosis were discussed with the patient and informed consent was obtained. Instrument: Olympus CF H 190 L variable stiffness adult colonoscope Monitoring: Vital signs and clinical assessment, intermittent blood pressure monitoring, continuous EKG monitoring, Pulse oximetry and Carbon Dioxide monitoring were done throughout the procedure. Procedure: The patient was placed in the left lateral decubitis position and pre-procedure medications were administered. After a digital rectal examination of the ano-rectum, the video colonoscope was inserted into the rectum and advanced through the colon to the 45 cms.? It was not possible to advanced due to presence of solid stools throughout the colon.? The colonoscopy was removed and procedure was discontinued. Findings: Sigmoid Colon:? Not evaluated due to poor prep Rectum:? Not evaluated due to poor prep Ano-rectum:? Rectal exam was normal. Colon preparation:? ? poor Impression and Post Procedure Diagnosis: Flexible sigmoidoscopy Findings: The video colonoscope was inserted into the rectum and advanced through the colon to the 45 cms.? It was not possible to advanced due to presence of solid stools throughout the colon.? The colonoscopy was removed and procedure was discontinued. Plan: Patient has an appointment on 04/30/22 in the GI Clinic with TAINA Kaminski. Above findings were reviewed with the patient and she noted that she took only 2 glasses of Miralax. Pt was advised to reschedule her colonoscopy appt and take the following prep (sent to her preferred pharmacy) Duloclax 2 tablets daily at 5 pm starting 2 days prior to her colonoscopy appt. Miralax split prep. Pt was advised to take 2 days off from work - to prep and for the procedure - she will need a work note. Surgeon: Isabel Torres MD Anesthesia: MAC (Dr Long) Was an Edge Finisher used for this Procedure?: Yes Edge Finisher: Casimiro Amos Estimated blood loss (mL): 0 Pathology: none sent Condition: stable Disposition: PACU
[2022-04-07 15:10] VITALS: BP 132/70; PULSE 77; RESP 20; TEMP 36.8; O2SAT 99
[2022-04-07 15:25] VITALS: BP 142/75; PULSE 89; RESP 18; TEMP 36.8; O2SAT 99
== END 2022-04-07 15:54 ==
LOC: HO.SSS 14:24
PROVIDERS: PCP Internal Medicine; Visit Provider Internal Medicine Gastroenterology
PROC: 0DJD8ZZ Inspection of Lower Intestinal Tract, Via Natural or Artificial Opening Endoscopic (ICD-10-PCS; CPT 45378; principal; 2022-04-07 15:00)
DX: Z12.11 Encounter for screening for malignant neoplasm of colon (principal); Z91.19 Patient's noncompliance with other medical treatment and regimen; I10 Essential (primary) hypertension; J45.909 Unspecified asthma, uncomplicated; G47.33 Obstructive sleep apnea (adult) (pediatric); E66.01 Morbid (severe) obesity due to excess calories; Z68.42 Body mass index [BMI] 45.0-49.9, adult; Z79.899 Other long term (current) drug therapy; Z88.1 Allergy status to other antibiotic agents
CPT/HCPCS: 45330

== ENCOUNTER 2022-09-11 14:23 | Outpatient (REF) | payer OTHER, SELFPAY | END 2022-09-11 14:24 | disposition home or self-care (01) | LOC: HO.HOSX 14:23 | PROVIDERS: Visit Provider Physician Assistant | DX: Z13.89 Encounter for screening for other disorder (principal) ==

== ENCOUNTER → 2023-02-09 15:33 | Outpatient (BNVA) | payer OTHER, SELFPAY | PROVIDERS: PCP Internal Medicine; Visit Provider Obstetrics & Gynecology ==

== ENCOUNTER 2023-02-16 15:02 | Outpatient (REF) | payer OTHER, SELFPAY ==
--- NOTE | ~2023-02-16 | US_ITS ---
EXAMINATION: US PELVIS CLINICAL INFORMATION: Abnormal uterine bleeding; the last menstrual period was on early 12/2022. COMPARISON: Pelvic ultrasound dated 02/01/2014. TECHNIQUE: Ultrasound of the pelvis is performed using both transabdominal and transvaginal transducers along with Doppler. Transvaginal imaging is performed due to inadequate visualization transabdominally. FINDINGS: Uterus: The uterus is anteverted and retroflexed. The uterus measures 7.2 x 3.2 x 4.9 cm. Nabothian cysts are seen within the cervix. The double wall endometrial thickness is 0.6 mm. The uterus is smooth in contour and has normal myometrial echogenicity. Arising exophytically from the rightward fundus, a 1.3 x 1.4 x 1.4 cm hypoechoic fibroid is seen. Adnexa: Both ovaries are nonvisualized. There is no pelvic ascites or fluid collection. US/US pelvic and transvaginal IMPRESSION: 1. A small uterine fibroid is seen, as detailed. 2. Nabothian cysts are seen within the cervix. 3. A uterine fibroid is noted.
--- NOTE | ~2023-02-16 | MM_ITS ---
EXAMINATION: MM SCREENING DIGITAL BREAST TOMOSYNTHESIS, BILATERAL CLINICAL INFORMATION: Screening. Asymptomatic. Prior history bilateral reduction mammoplasty and possibly mastopexy. The lifetime risk of breast cancer based on the Tyrer-Cuzick Model is 9%. COMPARISON: Mammography: 02/23/2021, 04/20/2019, 07/14/2016 TECHNIQUE: Digital breast tomosynthesis is performed in both the craniocaudal and mediolateral oblique views along with computer-aided detection (CAD). Synthesized 2D images are generated from the tomosynthesis. FINDINGS: The breasts are almost entirely fatty (ACR BI-RADS breast composition Category a). There are no significant masses, abnormal calcifications, or other abnormalities. Parenchymal pattern is similar to prior studies. There is minor scarring consistent with the prior breast surgery. No developing density or interval architectural abnormality. The axilla are unremarkable. No significant changes from prior exams. MM/MM tomosynthesis screening BI IMPRESSION: No mammographic evidence of malignancy. ASSESSMENT: BI-RADS 2: Benign RECOMMENDATION: Routine annual mammography screening. This patient's information was entered into a reminder system with a target due date for their next mammogram.
[2023-02-16 16:50] LABS: Hematocrit 37.7 % (37.0-47.0); Hemoglobin 12.3 g/dl (12.0-16.0); Mean Corpuscular HGB Conc 32.6 g/dl (31.0-35.0); Mean Corpuscular Hemoglobin 31.1 pg (27.0-33.0); Mean Corpuscular Volume 95.4 fL (80.0-98.0); Mean Platelet Volume 9.3 fL (9.4-12.3); Platelet Count 308 X10*3/uL (160-400); Red Blood Count 3.95 X10*6/uL (4.20-5.50); Red Cell Distribution Width 13.8 % (11.0-16.0); White Blood Count 7.4 X10*3/uL (4.8-10.8)
[2023-02-16 17:19] LABS: HCG Quantitative < 2 mIU/mL
[2023-02-16 17:27] LABS: TSH reflex Free T4 1.64 uIU/mL (0.32-4.0)
== END 2023-02-16 15:03 | disposition home or self-care (01) ==
LOC: HO.US 15:02
PROVIDERS: PCP Internal Medicine; Visit Provider Obstetrics & Gynecology
DX: Z12.31 Encounter for screening mammogram for malignant neoplasm of breast (principal); N93.9 Abnormal uterine and vaginal bleeding, unspecified
CPT/HCPCS: 36415; 76830; 76856; 77063; 77067; 84146; 84443; 84702; 85027

== ENCOUNTER 2023-03-05 08:34 | Outpatient (REF) | payer OTHER, SELFPAY | END 2023-03-05 08:35 | disposition home or self-care (01) | LOC: HO.LNP 08:34 | PROVIDERS: PCP Internal Medicine; Visit Provider Obstetrics & Gynecology | DX: N93.9 Abnormal uterine and vaginal bleeding, unspecified (principal) | CPT/HCPCS: 58100; 81025; 88305 ==

== ENCOUNTER 2023-05-15 11:10 | Outpatient (AMB) | payer OTHER, SELFPAY ==
[2023-05-15 11:11] VITALS: BP 132/86; PULSE 93; RESP 16; O2SAT 98; BMI 45.3
--- NOTE | 2023-05-15 11:11 | A.OFFVIS_ITS ---
Intake Vital Signs 05/15/23 11:11 Height 5 ft 10 in Weight 315 lb 8 oz BMI 45.3 BP 132/86 Blood Pressure Location Lt brachial Position Sitting Respiration 16 Pulse 93 Pulse Source Pulse Oximeter Pulse Oximetry (%) 98 Oxygen Delivery Method Room Air Intake Visit Reasons: Hypertension Intake Note: Pt is here for HTN F/U. Pt stop taking metoprolol due to side affect swelling in both legs. Material Mixer Required: No Accompanied by: Self / Same As Patient Allergies piperacillin Allergy (Unknown, Verified 05/15/23 11:22) hives Medication List - Last Reconciled 05/15/23 by Michael Garcia Po, albuterol sulfate 2.5 mg (3 mL) inhalation Q4-6H PRN albuterol sulfate 90 mcg/actuation (Ventolin HFA) 2 puffs inhalation Q6H PRN amlodipine 5 mg PO DAILY aripiprazole (Abilify) 5 mg PO DAILY 90 days betamethasone dipropionate 0.05% 1 appl topical DAILY PRN budesonide-formoterol 160-4.5 mcg/actuation (Symbicort) 2 puffs inhalation BID 30 days bupropion HCl (Wellbutrin XL) 150 mg PO QAM cholecalciferol (vitamin D3) 50 mcg PO DAILY 90 days clotrimazole 1% 1 appl topical BID 4 weeks comp.stocking,thigh,long,x-lrg As directed 20-30 mm HG cyanocobalamin (vitamin B-12) 1,000 mcg PO DAILY escitalopram oxalate 30 mg (1.5 x 20 mg) PO DAILY 90 days folic acid 1 mg PO DAILY 30 days gabapentin 300 mg PO BEDTIME 90 days liraglutide (weight loss) (Saxenda) inject subcutaneously once daily: week 1 = 0.6 mg; week 2 = 1.2 mg; week 3 = 1.8 mg; week 4 = 2.4 mg; then 3 mg daily subcut lisinopril-hydrochlorothiazide 20-12.5 mg 1 tab PO BID 90 days miconazole nitrate 2% (Zeasorb AF) 1 appl topical BID multivitamin 1 tab PO DAILY nebulizers (Aeroneb Go Nebulizer) As directed pantoprazole 40 mg PO DAILY thiamine mononitrate (vit B1) 100 mg PO DAILY 90 days tramadol 50 mg PO TID 30 days umeclidinium 62.5 mcg/actuation (Incruse Ellipta) 1 inh inhalation BEDTIME HPI Hypertension HPI Details 52-year-old morbidly obese female with a history of gastric bypass March 2020, hypertension obstructive sleep apnea knee osteoarthritis asthma and recurrent major depression last seen in January 2023. Patient is here for follow- up mammograms up-to-date review of the notes follows up with Dr. Sow advised semaglutide/Wegovy [facility] Medical History (Updated 02/27/23 @ 15:51 by Michael Melvin MD) PTSD (post-traumatic stress disorder) Anxiety Asthma exacerbation Injury, foot Anemia Peripheral vascular disease Vitamin D deficiency Benign essential hypertension Obstructive sleep apnea Osteoarthritis of knees, bilateral Surgical History Hx of flexible sigmoidoscopy History of section History of breast lift H/O gastric bypass History of cholecystectomy Family History Father Lung cancer Liver cancer Hepatitis C Mother CVD (cerebrovascular disease) Stroke Diabetes Brother PTSD (post-traumatic stress disorder) Sister Hx of sleep apnea Asthma Son No problems noted. 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 Sexual orientation: Straight/Heterosexual Gender identity: Female Cognitive needs: No Hearing needs: No Vision needs: No Female Reproductive History Menstrual Age of Menarche: 16 Physical Exam Vital Signs: Last Vital Signs Pulse 93 05/15/23 11:11 Resp 16 05/15/23 11:11 BP 132/86 05/15/23 11:11 Pulse Ox 98 05/15/23 11:11 Oxygen Delivery Method Room Air 05/15/23 11:11 BMI result Body Mass Index 45.3 Const General: alert; No acute distress HEENT Head: Yes normal to inspection Eyes General: appearance normal, both eyes and all related structures Conjunctivae: conjunctivae normal Neck Neck: Yes normal visual inspection Chest Chest palpation & inspection: normal inspection of the chest Resp Other: occ wheezing Cardio Rate: regular rate Rhythm: regular rhythm GI Inspection: Yes normal to inspection General: Yes no CVA tenderness Back/Spine/Pelvis Back: no CVA tenderness Skin General skin exam: no rashes or lesions noted Extrem General: Yes normal to inspection and No edema Assessment & Plan Assessment & Plan (1) H/O gastric bypass: Comment: 2000- GBP 2019 -conversion of gastric bypass to biliopancreatic limb bypass Dr. Sow 03/2020 Code(s): Z98.84 - Bariatric surgery status Plan: Patient has seen bariatric surgeon and has been placed on semaglutide which is not covered- will try saxenda (2) Benign essential hypertension: Comment: Echo December 2017 EF 60-65 Code(s): I10 - Essential (primary) hypertension Plan: Continue with blood pressure medication. Decrease salt intake and exercise c ontinue with amlodipine 5 mg once a day lisinopril hydrochlorothiazide 20/12.5 twice a day (3) Obstructive sleep apnea: Comment: cannot tolerate CPAP 11/2020 Code(s): G47.33 - Obstructive sleep apnea (adult) (pediatric) Plan: Discussed importance of CPAP (4) Osteoarthritis of knees, bilateral: Code(s): M17.0 - Bilateral primary osteoarthritis of knee Qualifiers: Osteoarthritis type: primary Qualified Code(s): M17.0 - Bilateral primary osteoarthritis of knee Plan: Continue to lose the weight try to keep active (5) MDD (major depressive disorder), recurrent episode, severe: Comment: psychiatry [facility], counselling q week Code(s): F33.2 - Major depressive disorder, recurrent severe without psychotic features Qualifiers: Psychotic features: without psychotic features Qualified Code(s): F33.2 - Major depressive disorder, recurrent severe without psychotic features Plan: Continue with counseling and therapy (6) Asthma: Code(s): J45.909 - Unspecified asthma, uncomplicated Qualifiers: Asthma severity: mild Asthma persistence: intermittent Asthma complication type: uncomplicated Qualified Code(s): J45.20 - Mild intermittent asthma, uncomplicated Plan: Continue with the albuterol and Symbicort Orders: Orders Complete Blood Count Auto Diff Today D50.9 - Iron deficiency anemia, unspecified IRON PROFILE Today D50.9 - Iron deficiency anemia, unspecified Reticulocyte Count Today D50.9 - Iron deficiency anemia, unspecified Vitamin B12 and Folate Today D50.9 - Iron deficiency anemia, unspecified Free T4 (Free Thyroxine) Today I10 - Essential (primary) hypertension Thyroid Stimulating Hormone Today I10 - Essential (primary) hypertension Lipid Panel Today E78.00 - Pure hypercholesterolemia, unspecified, I10 - Essential (primary) hypertension Ferritin Today D50.9 - Iron deficiency anemia, unspecified Comprehensive Met. Panel Today I10 - Essential (primary) hypertension Vitamin D 25-OH Total Today I10 - Essential (primary) hypertension Medications: New liraglutide (weight loss) (Saxenda) inject subcutaneously once daily: week 1 = 0.6 mg; week 2 = 1.2 mg; week 3 = 1.8 mg; week 4 = 2.4 mg; then 3 mg daily subcut 15 mL 0RF E66.9 - Obesity, unspecified Discontinued semaglutide for 4 weeks Discontinued Reason: Insurance Denied 0.25 mg (0.368 mL) subcut QWEEK 3 mL 1RF E66.9 - Obesity, unspecified Coding Level of Care Code Est Pt Level 4 (39515) Diagnoses H/O gastric bypass Z98.84 Benign essential hypertension I10 Obstructive sleep apnea G47.33 Primary osteoarthritis of both knees M17.0 Osteoarthritis type: primary Severe episode of recurrent major depressive disorder, without psychotic features F33.2 Psychotic features: without psychotic features Mild intermittent asthma without complication J45.20 Asthma severity: mild Asthma persistence: intermittent Asthma complication type: uncomplicated
== END 2023-05-15 12:01 | disposition home or self-care (01) ==
PROVIDERS: PCP Internal Medicine; Visit Provider Internal Medicine
DX: I10 Essential (primary) hypertension (principal); F33.2 Major depressive disorder, recurrent severe without psychotic features; Z98.84 Bariatric surgery status; J45.20 Mild intermittent asthma, uncomplicated; G47.33 Obstructive sleep apnea (adult) (pediatric); M17.0 Bilateral primary osteoarthritis of knee
CPT/HCPCS: 99214

== ENCOUNTER 2023-05-15 13:26 | Outpatient (AMB) | payer OTHER, SELFPAY ==
--- NOTE | 2023-05-15 13:27 | MHC.OFFVIS ---
Intake Vital Signs 05/15/23 13:30 Height 5 ft 10 in Weight 316 lb 10.724 oz BMI 45.4 BP 132/75 Blood Pressure Location Lt brachial Position Sitting Pulse 91 Intake Visit Reasons: [facility] Screening Intake Note: Yaritza presents in the office as a new patient colonoscopy screening. CC: She states that she is not having any concerns today. Senior Sales Assistant Required: No Allergies piperacillin Allergy (Unknown, Verified 05/15/23 13:31) hives HPI [facility] Screening HPI Details LAST VISIT WITH GONZ[facility]LE[facility] BARB NOVEMBER 2021 (1) Colon cancer screening: Comment: Index screening colonoscopy MiraLax Gatorade split prep Code(s): Z12.11 - Encounter for screening for malignant neoplasm of colon Plan: Colonoscopy- ANESTHESIA consult- asthma- PURVI- follows PCP no financial institution manager (2) Obstructive sleep apnea: Comment: cannot tolerate CPAP 11/2020 Code(s): G47.33 - Obstructive sleep apnea (adult) (pediatric) SIGMOIDOSCOPY MARCH OF 2022 Findings: Sigmoid Colon:? Not evaluated due to poor prep Rectum:? Not evaluated due to poor prep Ano-rectum:? Rectal exam was normal. Colon preparation:? ? poor Impression and Post Procedure Diagnosis: Flexible sigmoidoscopy Findings: The video colonoscope was inserted into the rectum and advanced through the colon to the 45 cms.? It was not possible to advanced due to presence of solid stools throughout the colon.? The colonoscopy was removed and procedure was discontinued. Plan: Patient has an appointment on 04/30/22 in the GI Clinic with TAINA Kaminski. Above findings were reviewed with the patient and she noted that she took only 2 glasses of Miralax. Pt was advised to reschedule her colonoscopy appt and take the following prep (sent to her preferred pharmacy) Duloclax 2 tablets daily at 5 pm starting 2 days prior to her colonoscopy appt. Miralax split prep. Pt was advised to take 2 days off from work - to prep and for the procedure - she will need a work note. [facility] Medical History (Updated 05/15/23 @ 14:42 by ADAMA Mora) PTSD (post-traumatic stress disorder) Anxiety Asthma exacerbation Injury, foot Anemia Peripheral vascular disease Vitamin D deficiency Benign essential hypertension Obstructive sleep apnea Osteoarthritis of knees, bilateral Surgical History (Updated 05/15/23 @ 13:31 by CAMMY Benítez) History of esophagogastroduodenoscopy (EGD) Hx of flexible sigmoidoscopy History of section History of breast lift H/O gastric bypass History of cholecystectomy Family History Father Lung cancer Liver cancer Hepatitis C Mother CVD (cerebrovascular disease) Stroke Diabetes Brother PTSD (post-traumatic stress disorder) Sister Hx of sleep apnea Asthma Son No problems noted. 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 Sexual orientation: Straight/Heterosexual Gender identity: Female Cognitive needs: No Hearing needs: No Vision needs: No Female Reproductive History Menstrual Age of Menarche: 16 Review of Systems Const Denies weight gain and Denies weight loss ENT Reports no additional complaints, Denies dysphagia and Denies odynophagia Card Reports no additional complaints Resp Reports no additional complaints GI Denies abdominal pain, Denies belching, Denies melena, Denies bloating, Reports constipation, Denies dysphagia, Denies excessive flatus, Denies dyspepsia, Denies heartburn, Denies diarrhea, Reports loose stools, Denies nausea, Denies odynophagia and Denies vomiting Reports no additional complaints Musc Reports no additional complaints Neuro Reports no additional complaints Psych Reports no additional complaints Endo Reports no additional complaints Physical Exam Vital Signs: Last Vital Signs Pulse 91 05/15/23 13:30 BP 132/75 05/15/23 13:30 BMI result Body Mass Index 45.4 Const General: healthy appearing, no acute distress and well developed Nutritional Appearance: obese Orientation/consciousness: patient oriented x3 HEENT Head: Yes normal to inspection, Yes normocephalic and Yes atraumatic Face and sinus: Yes normal facial exam Mouth: Normal oral and palatal mucosa present Throat: Yes posterior oropharynx normal, Yes tonsils normal and Yes uvula midline Eyes General: appearance normal, both eyes and all related structures Neck Neck: Yes normal visual inspection, Yes full ROM and Yes trachea midline Thyroid: Thyroid normal Resp Effort & Inspection: normal respiratory effort, able to speak in complete sentences, no tracheal deviation and symmetric chest movement Auscultation: clear to auscultation bilaterally Cardio Rate: regular rate Heart sounds: S1 normal heart sound present and S2 normal heart sound present GI Inspection: Yes normal to inspection, No distended and Yes obesity Palpation (GI): Soft to palpation, not firm, nontender and No hepatosplenomegaly present Auscultation: normal bowel sounds General: Yes no CVA tenderness Back/Spine/Pelvis Back: no CVA tenderness Skin General skin exam: elasticity normal, turgor normal and dry skin Neuro General: patient oriented x3 Psych Appearance: grossly normal Mental Status: mental status grossly normal Speech and movement: Normal speech and movement present Affect: normal affect Attitude: cooperative Thought process: Normal thought process present Thought content: Normal thought content present Insight: Good insight present (Psych) Judgement: Good judgement present (Psych) Assessment & Plan Assessment & Plan (1) Colon cancer screening: Code(s): Z12.11 - Encounter for screening for malignant neoplasm of colon Plan: Patient had suboptimal prep last colonoscopy. Patient was confused about much prep she should be drinking. Patient only had 2 glasses. Long discussion about good bowel prep. Patient will do split prep with Dulcolax tablets. However patient does not move her bowels completely and will start taking Dulcolax tablets 1-2 tablets every evening. Patient denies any issues with anesthesia in the past. History of sleep apnea unable to use a CPAP. Denies any cardiac or respiratory symptoms. Patient is taking Symbicort for asthma. Patient's asthma is under control. Patient is not on any anticoagulation medication. (2) Constipation: Code(s): K59.00 - Constipation, unspecified Qualifiers: Constipation type: slow transit constipation Qualified Code(s): K59.01 - Slow transit constipation Plan: Patient will start taking Dulcolax every night. Patient will increase fluid intake and activity to promote better bowel motility. I will see her after the procedure, sooner on as needed basis. Patient is agreeable to this plan and verbalizes understanding of instructions. She was given the opportunity to ask questions and all questions answered. Thank you for allowing me to participate in her care Medications: New bisacodyl (Dulcolax (bisacodyl)) 10 mg (2 x 5 mg) PO BEDTIME 180 tabs 4RF polyethylene glycol 3350 (Miralax) As directed by gastroenterology department at [facility] 238 grams PO ONCE 238 grams 0RF Z12.11 - Encounter for screening for malignant neoplasm of colon Coding Level of Care Code Est Pt Level 4 (77534) Diagnoses Colon cancer screening Z12.11 Slow transit constipation K59.01 Constipation type: slow transit constipation Time Spent (min) 40 Comment 25 minutes spent with patient and additional 15 minutes spent reviewing her records
[2023-05-15 13:30] VITALS: BP 132/75; PULSE 91; BMI 45.4
== END 2023-05-15 13:55 | disposition home or self-care (01) ==
PROVIDERS: PCP Internal Medicine; Visit Provider Nurse Practitioner Family
DX: Z12.11 Encounter for screening for malignant neoplasm of colon (principal); K59.01 Slow transit constipation; Z01.818 Encounter for other preprocedural examination
CPT/HCPCS: 99214

== ENCOUNTER → 2023-05-15 13:26 | Outpatient (BNVA) | payer OTHER, SELFPAY | PROVIDERS: PCP Internal Medicine; Visit Provider Nurse Practitioner Family ==

== ENCOUNTER 2023-05-18 10:16 | Outpatient (AMB) | payer OTHER, SELFPAY ==
--- NOTE | 2023-05-18 10:17 | MHC.OFFVIS ---
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 The following workup was done.: H&H= 12.3/37.7 TSH, prolactin, hCG, GC and chlamydia were negative. Endometrial biopsy pathology showed no evidence of hyperplasia and/or malignancy. Co testing was done in 09/20 was negative. Mammogram was BI-RADS 2 Pelvic ultrasound showed the following: Uterus: The uterus is anteverted and retroflexed. The uterus measures 7.2 x 3.2 x 4.9 cm. Nabothian cysts are seen within the cervix. The double wall endometrial thickness is 0.6 mm. The uterus is smooth in contour and has normal myometrial echogenicity. Arising exophytically from the rightward fundus, a 1.3 x 1.4 x 1.4 cm hypoechoic fibroid is seen. Adnexa: Both ovaries are nonvisualized. There is no pelvic ascites or fluid collection. [facility] Medical History PTSD (post-traumatic stress disorder) Anxiety Asthma exacerbation Injury, foot Anemia Peripheral vascular disease Vitamin D deficiency Benign essential hypertension Obstructive sleep apnea Osteoarthritis of knees, bilateral Surgical History History of esophagogastroduodenoscopy (EGD) Hx of flexible sigmoidoscopy History of section History of breast lift H/O gastric bypass History of cholecystectomy Family History Father Lung cancer Liver cancer Hepatitis C Mother CVD (cerebrovascular disease) Stroke Diabetes Brother PTSD (post-traumatic stress disorder) Sister Hx of sleep apnea Asthma Son No problems noted. 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 Sexual orientation: Straight/Heterosexual Gender identity: Female Cognitive needs: No Hearing needs: No Vision needs: No Female Reproductive History Menstrual Age of Menarche: 16 Review of Systems Const All systems reviewed & are unremarkable except as noted in HPI and below Reports as per HPI and Reports no additional complaints GI Reports no additional complaints Reports no additional complaints Physical Exam Vital Signs: Last Vital Signs BP 140/80 H 05/18/23 10:20 BMI result Body Mass Index 45.2 Assessment & Plan Assessment & Plan (1) Abnormal uterine bleeding (AUB): Code(s): N93.9 - Abnormal uterine and vaginal bleeding, unspecified Plan: Discussed with the patient the results of the work up done and options of treatment including but not limited to BCP's, cyclic Progesterone, Mirena IUD, endometrial ablation and hysterectomy. All pros, cons, risks and benefits of each option were discussed with the patient and the patient decided to go ahead with cyclic Provera, so a more detailed discussion re: Progesterone treatment including mechanism of action, benefits (regular menses, endometrial protection form unopposed estrogen and reduction in the risk of endometrial hyperplasia and/or cancer ...), risks (Thrombosis, mood changes, weight gain, breast soreness, ? increased breast ca, others). Instructions were given to use a back- up method for contraception since this is not a method control and to schedule a 3 month follow-up appoint; the patient verbalized understanding and agreed with the plan. (2) Uterine myoma: Code(s): D25.9 - Leiomyoma of uterus, unspecified Plan: Discussed with the patient the findings on pelvic ultrasound & the risk of myosarcoma; discussed with the patient the options of treatment including expectant management versus hysterectomy; the pros and cons, risks benefits of each approach were discussed with the patient including the fact that in cases of myosarcoma, surgical treatment can lead to early diagnosis and positively affects the prognosis; after further discussion, the patient decided to proceed with expectant management. Will repeat pelvic ultrasound periodically. Instructions given to patient to call in case any of the following occurs: pressure symptoms, abnormal uterine bleeding, pelvic pain; and to schedule a future office follow-up appointment for reassessment and to order a repeat ultrasound . All questions answered, the patient verbalized understanding and agreed with the plan . Medications: New medroxyprogesterone (Provera) start Provera 1 tablet daily from day 15-24 cyclically every months, day 1 being 1st day of menses 10 mg PO DAILY 30 tabs 0RF 10 days Coding Level of Care Code Est Pt Level 3 (13780) Diagnoses Abnormal uterine bleeding (AUB) N93.9 Uterine myoma D25.9
[2023-05-18 10:20] VITALS: BP 140/80; BMI 45.2
== END 2023-05-18 10:36 | disposition home or self-care (01) ==
LOC: HO.HWS 10:16
PROVIDERS: PCP Internal Medicine; Visit Provider Obstetrics & Gynecology
DX: N93.9 Abnormal uterine and vaginal bleeding, unspecified (principal); D25.9 Leiomyoma of uterus, unspecified
CPT/HCPCS: 99213

== ENCOUNTER → 2023-05-18 10:16 | Outpatient (BNVA) | payer OTHER, SELFPAY | PROVIDERS: PCP Internal Medicine; Visit Provider Obstetrics & Gynecology ==

== ENCOUNTER 2023-09-28 06:17 | Outpatient (REF) | payer OTHER, SELFPAY | END 2023-09-28 06:18 | disposition home or self-care (01) | LOC: HO.HOSX 06:17 | PROVIDERS: Visit Provider Physician Assistant | DX: Z13.89 Encounter for screening for other disorder (principal) ==

== ENCOUNTER 2023-10-29 13:38 | Outpatient (REF) | payer OTHER, SELFPAY ==
--- NOTE | ~2023-10-29 | XR_ITS ---
EXAMINATION: XR STANDING BILATERAL KNEE XR RIGHT KNEE CLINICAL INFORMATION: Pain and unspecified knee. COMPARISON: Radiographs of 09/25/2020. TECHNIQUE: AP and lateral views of the right knee. AP standing view of bilateral knees. FINDINGS: Right Knee: The bones are diffusely demineralized. Tricompartmental degenerative changes with joint space narrowing and hypertrophic change. No significant joint effusion. Redemonstration of lateral subluxation of the patella on the sunrise view. Left Knee: The bones are diffusely demineralized. Advanced degenerative changes with marked medial joint space narrowing. Medial and lateral marginal osteophytes. XR/XR knee RT 2V IMPRESSION: Advanced degenerative changes in the bilateral knees.
--- NOTE | ~2023-10-29 | XR_ITS ---
EXAMINATION: XR STANDING BILATERAL KNEE XR RIGHT KNEE CLINICAL INFORMATION: Pain and unspecified knee. COMPARISON: Radiographs of 09/25/2020. TECHNIQUE: AP and lateral views of the right knee. AP standing view of bilateral knees. FINDINGS: Right Knee: The bones are diffusely demineralized. Tricompartmental degenerative changes with joint space narrowing and hypertrophic change. No significant joint effusion. Redemonstration of lateral subluxation of the patella on the sunrise view. Left Knee: The bones are diffusely demineralized. Advanced degenerative changes with marked medial joint space narrowing. Medial and lateral marginal osteophytes. XR/XR knee standing BI IMPRESSION: Advanced degenerative changes in the bilateral knees.
== END 2023-10-29 13:39 | disposition home or self-care (01) ==
LOC: HO.HOSX 13:38
PROVIDERS: PCP Internal Medicine; Visit Provider Physician Assistant
DX: M17.0 Bilateral primary osteoarthritis of knee (principal)
CPT/HCPCS: 20610; 73560; 73565; J1040

== ENCOUNTER 2023-10-29 13:38 | Outpatient (AMB) | payer OTHER, SELFPAY ==
[2023-10-29 13:39] VITALS: BMI 45.2
--- NOTE | 2023-10-29 13:39 | A.OFFVIS_ITS ---
Intake Vital Signs 10/29/23 13:39 10/29/23 14:19 Height 5 ft 10 in Weight 315 lb 299 lb 8 oz BMI 45.2 Intake Visit Reasons: OV-right knee pain, last inj 07/02/21 Intake Note: Yaritza is a 53 year old female who presents today for a follow up of her bilateral knee OA, last injections 07/02/21. Patient reports that she had a recent a fall on [place] that has caused an increase of pain in her right knee as well as limping since fall. She is unsure if injections provided her with relief however she would like to discuss repeat of injection. Allergies piperacillin Allergy (Unknown, Verified 10/29/23 14:03) hives HPI OV-right knee pain, last inj 07/02/21 HPI Details 53-year-old female who presents in the o ffice today for a follow up of right knee pain. I last saw the patient in the office on 07/02/2021 when she received a cortisone injection in the bilateral knees. While in the office today she reports a fall on 08/24/2023 that has caused her increased pain in her right knee as well as a limp. She is unsure if the injection will give her relief. She confirms prior surgeries with no complications. She confirms having asthma. BMI obtained today, 10/29/2023, is 43.0 at 299.8 pounds. Height 5 ft 10 inches Patient reports she is status post weight loss surgery. [facility] Medical History PTSD (post-traumatic stress disorder) Anxiety Asthma exacerbation Injury, foot Anemia Peripheral vascular disease Vitamin D deficiency Benign essential hypertension Obstructive sleep apnea Osteoarthritis of knees, bilateral Surgical History History of esophagogastroduodenoscopy (EGD) Hx of flexible sigmoidoscopy History of section History of breast lift H/O gastric bypass History of cholecystectomy Family History Father Lung cancer Liver cancer Hepatitis C Mother CVD (cerebrovascular disease) Stroke Diabetes Brother PTSD (post-traumatic stress disorder) Sister Hx of sleep apnea Asthma Son No problems noted. 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 Sexual orientation: Straight/Heterosexual Gender identity: Female Cognitive needs: No Hearing needs: No Vision needs: No Female Reproductive History Menstrual Age of Menarche: 16 Review of Systems Const All systems reviewed & are unremarkable except as noted in HPI and below Physical Exam Vital Signs: BMI result Body Mass Index 45.2 Const General: cooperative, healthy appearing and no acute distress Orientation/consciousness: patient oriented x3 Resp Effort & Inspection: normal respiratory effort and able to speak in complete sentences Cardio Rate: regular rate Peripheral pulses: Peripheral pulses 2+ throughout GI Palpation (GI): Soft to palpation Skin General skin exam: no rashes or lesions noted Lesions: no lesions Rashes: no rashes Neuro General: patient oriented x3 Extrem Other: Bilateral knees normal to inspection. No ecchymosis, redness or joint effusion. Patient is able to flex extend and range. No crepitus felt with range of motion. Negative Orlando's. Negative anterior drawer. NVI. Office Procedures Joint Injection/Drain Joint Injection/Drain Primary Site: right knee Secondary Site: left knee Prep: site was prepped using aseptic technique, ethochloride spray was applied and injection warnings given Injected: 80 mg of, DepoMedrol, with 8 mL of (2% plain lido ) and in the joint Approach Used: anterolateral Procedure: The patient tolerated the procedure well, but had some pain with the injection and there was some relief with the local anesthesia Coding 92275 - Large joint Procedure code (CPT) selection complete Assessment & Plan Assessment & Plan (1) Osteoarthritis of right knee: Code(s): M17.11 - Unilateral primary osteoarthritis, right knee Qualifiers: Osteoarthritis type: unspecified Qualified Code(s): M17.11 - Unilateral primary osteoarthritis, right knee (2) Osteoarthritis of left knee: Code(s): M17.12 - Unilateral primary osteoarthritis, left knee Qualifiers: Osteoarthritis type: unspecified Qualified Code(s): M17.12 - Unilateral primary osteoarthritis, left knee Plan Ms. Recio is a 53-year-old female who presents in the office today for a follow up of right knee pain. I last saw the patient in the office on 07/02/2021 when she received a cortisone injection in the bilateral knees. While in the office today she reports a fall on 08/24/2023 that has caused her increased pain in her right knee as well as a limp. She is unsure if the injection will give her relief. She confirms prior surgeries with no complications. She confirms having asthma. BMI obtained today, 10/29/2023, is 43.0 at 299.8 pounds. Height 5 ft 10 inches Patient reports she is status post weight loss surgery. Dr. Hwang was available to speak with me about the patient while in the office today and a collaborative treatment plan was made. We discussed conservative versus surgical intervention while in the office today. The patient reports she is interested in moving forward with a right total knee arthroplasty. I discussed with the patient the goal will be for her to reach 180 pounds before we can discuss moving forward with right total knee arthroplasty. The patient was offered a cortisone injection in the bilateral knees with 80 mg of DepoMedrol. The patient was explained the risk, benefits, and alternatives to receiving this injection. After receiving consent for the injection, the patient had the procedure done while in office today. The patient tolerated the procedure well with no complications. Follow up will be in 3 months, or sooner if needed. X-rays of the right knee which were obtained while in the office today and were reviewed by me, Arianna Ramirez PA-C, revealed bilateral osteoarthritis. Orders: Orders XR knee standing BI Today M25.569 - Pain in unspecified knee XR knee RT 2V Today M25.569 - Pain in unspecified knee Patient Instructions: Scribed by [facility] medical staff credentialing coordinator, for Arianna Ramirez PA-C on 10/29/2023 at 1:43 pm, EST. Coding Level of Care Code Est Pt Level 4 (29676) Diagnoses Osteoarthritis of right knee, unspecified osteoarthritis type M17.11 Osteoarthritis type: unspecified Osteoarthritis of left knee, unspecified osteoarthritis type M17.12 Osteoarthritis type: unspecified CPT Codes Coding - 65648 Large joint: 16112 - Large joint ([id number])
== END 2023-10-29 14:56 | disposition home or self-care (01) ==
PROVIDERS: PCP Internal Medicine; Visit Provider Physician Assistant
DX: M17.0 Bilateral primary osteoarthritis of knee (principal)
CPT/HCPCS: 20610; 99214

== ENCOUNTER → 2024-03-02 16:00 | Outpatient (BNV) | payer MEDICAID, SELFPAY | PROVIDERS: Visit Provider Radiology Diagnostic Radiology | DX: Z12.31 Encounter for screening mammogram for malignant neoplasm of breast (principal) | CPT/HCPCS: 77063; 77067 ==

== ENCOUNTER 2024-03-02 16:12 | Outpatient (REF) | payer OTHER, SELFPAY ==
--- NOTE | ~2024-03-02 | MM_ITS ---
EXAMINATION: MM SCREENING DIGITAL BREAST TOMOSYNTHESIS, BILATERAL CLINICAL INFORMATION: Screening. Asymptomatic. The patient has a history of bilateral reduction mammoplasty. COMPARISON: Mammography: This study is compared with prior exams dating back to 2019. TECHNIQUE: Digital breast tomosynthesis is performed in both the craniocaudal and mediolateral oblique views along with computer-aided detection (CAD). Synthesized 2D images are generated from the tomosynthesis. FINDINGS: There are scattered areas of fibroglandular density (ACR BI-RADS breast composition Category b). There are no significant masses, abnormal calcifications, or other abnormalities. Post reduction changes are present in each breast. MM/MM tomosynthesis screening BI IMPRESSION: No mammographic evidence of malignancy. ASSESSMENT: BI-RADS BI-RADS 2 - Benign Findings RECOMMENDATION: Routine annual mammography screening. 1 year F/U This examination should not preclude the clinical evaluation of a suspicious palpable abnormality. This patient's information was entered into a reminder system with a target due date for their next mammogram.
== END 2024-03-02 16:13 | disposition home or self-care (01) ==
LOC: HO.MAMMO 16:12
PROVIDERS: Visit Provider Internal Medicine
DX: Z12.31 Encounter for screening mammogram for malignant neoplasm of breast (principal)
CPT/HCPCS: 77063; 77067

== ENCOUNTER 2024-03-14 08:03 | Outpatient (AMB) | payer SELFPAY ==
--- NOTE | 2024-03-14 08:34 | MHC.OFFVIS ---
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 The patient did not have withdrawal bleed on cyclic Provera over the last 2 months. Last Pap/HPV was negative in 09/20 Last Mammogram was done in 03/23, the report is still pending Last Colonoscopy was attempted in 04/21, the prep was inadequate, the recommendation was to repeat colonoscopy, the patient states that she has not hear back for another colonoscopy from the GI office [facility] Medical History PTSD (post-traumatic stress disorder) Anxiety Asthma exacerbation Injury, foot Anemia Peripheral vascular disease Vitamin D deficiency Benign essential hypertension Obstructive sleep apnea Osteoarthritis of knees, bilateral Surgical History History of esophagogastroduodenoscopy (EGD) Hx of flexible sigmoidoscopy History of section History of breast lift H/O gastric bypass History of cholecystectomy Family History Father Lung cancer Liver cancer Hepatitis C Mother CVD (cerebrovascular disease) Stroke Diabetes Brother PTSD (post-traumatic stress disorder) Sister Hx of sleep apnea Asthma Son No problems noted. 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 Sexual orientation: Straight/Heterosexual Gender identity: Female Cognitive needs: No Hearing needs: No Vision needs: No Female Reproductive History Menstrual Age of Menarche: 16 Total pregnancies: 4 Full term: 2 Number of Living Children: 2 Date of last pap smear: 09/26/20 Date of Mammogram: 03/02/24 Review of Systems Const All systems reviewed & are unremarkable except as noted in HPI and below Card Reports as per HPI Resp Reports as per HPI GI Reports as per HPI and Reports no additional complaints Reports as per HPI Physical Exam Vital Signs: BMI result Body Mass Index 39.6 Const General: cooperative, healthy appearing and comfortable Chest Chest palpation & inspection: normal inspection of the chest and normal palpation of entire chest wall Breast/axilla inspection: normal inspection of the breasts and normal inspection of the axillae Breast/axilla palpation: normal palpation of the breasts, normal palpation of the axillae and no axillary lymphadenopathy Resp Effort & Inspection: normal respiratory effort Auscultation: clear to auscultation bilaterally Percussion: percussion normal Cardio Palpation: normal PMI Rate: regular rate Rhythm: regular rhythm Heart sounds: no murmurs and no rubs Peripheral pulses: Peripheral pulses 2+ throughout GI Inspection: Yes normal to inspection Palpation (GI): Soft to palpation, nontender, no guarding, not rigid and No hepatosplenomegaly present Percussion: Yes normal to percussion Auscultation: normal bowel sounds Rectal Exam - Female: deferred General: Yes bladder normal to palpation External Female Exam: No lesion Speculum Exam - Vagina: normal appearance of the vagina, normal palpation, normal vaginal discharge and not erythematous Speculum Exam - Cervix: normal appearance of the cervix and normal palpation Bimanual exam- vagina & uterus: normal bimanual exam, normal palpation, uterine size normal, bladder normal to palpation, consistency normal and normal palpation Bimanual Exam- Adnexa, other: normal adnexae, no masses and no tenderness Assessment & Plan Assessment & Plan (1) Well woman exam: Code(s): Z01.419 - Encounter for gynecological examination (general) (routine) without abnormal findings Category: Medical Plan: Co testing not indicated. Counseled the patient about the recommended dietary allowance of 1200 mg of Calcium & 600 IU of vitamin D. The patient was referred to GI for screening colonoscopy . The patient was instructed to perform monthly self-breast exams and schedule annual exam in a year. All questions answered and the patient verbalized understanding. (2) Amenorrhea: Code(s): N91.2 - Amenorrhea, unspecified Category: Medical Plan: Urine test done in the office was negative, will order FSH/LH. Instructions given the patient to schedule a 2 week follow-up appointment. All questions answered, the patient verbalized understanding Orders: Orders Follicle Stimulating Hormone Today N91.2 - Amenorrhea, unspecified Lutenizing Hormone Today N91.2 - Amenorrhea, unspecified Referrals Gastroenterology Referral Z12.11 - Encounter for screening for malignant neoplasm of colon Coding Level of Care Code Est Pt Level 3 (90688) Est Pt Prev Care 40-64y(82840) Diagnoses Well woman exam Z01.419 Amenorrhea N91.2
[2024-03-14 08:35] VITALS: BMI 39.6
== END 2024-03-14 09:05 | disposition home or self-care (01) ==
PROVIDERS: PCP Internal Medicine; Visit Provider Obstetrics & Gynecology
DX: Z01.419 Encounter for gynecological examination (general) (routine) without abnormal findings (principal); N91.2 Amenorrhea, unspecified; Z32.02 Encounter for pregnancy test, result negative
CPT/HCPCS: 99396

== ENCOUNTER 2024-03-14 08:03 | Outpatient (REF) | payer OTHER, SELFPAY ==
[2024-03-15 07:14] LABS: Follicle Stimulating Hormone 29.6 mIU/mL; Lutenizing Hormone 27.6 mIU/mL
== END 2024-03-14 08:04 | disposition home or self-care (01) ==
LOC: HO.LAB 08:03
PROVIDERS: PCP Internal Medicine; Visit Provider Obstetrics & Gynecology
DX: N91.2 Amenorrhea, unspecified (principal)
CPT/HCPCS: 36415; 81025; 83001; 83002

== ENCOUNTER 2024-06-06 12:57 | Outpatient (AMB) | payer OTHER, SELFPAY ==
--- NOTE | 2024-06-06 13:03 | MHC.PC.OV ---
Vital Signs 06/06/24 13:12 Height 5 ft 10 in Weight 124.454 kg BMI 39.4 BP 140/82 H Blood Pressure Location Lt brachial Position Sitting Intake Visit Reasons: 3 month follow up , BP Intake Note: Patient is here to follow up on PURVI, HTN and forms filling. 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: Not Required per policy Accompanied by: Self / Same As Patient Allergies piperacillin Allergy (Unknown, Verified 06/06/24 13:06) hives Medication List - Last Reconciled 06/06/24 by Michael Melvin MD albuterol sulfate 2.5 mg (3 mL) inhalation Q4-6H PRN albuterol sulfate 90 mcg/actuation (Ventolin HFA) 2 puffs inhalation Q6H PRN amlodipine 5 mg PO DAILY betamethasone dipropionate 0.05% 1 appl topical DAILY PRN budesonide-formoterol 160-4.5 mcg/actuation (Symbicort) 2 puffs inhalation BID 30 days cholecalciferol (vitamin D3) 1,250 mcg PO QWEEK clotrimazole 1% 1 appl topical BID 4 weeks comp.stocking,thigh,long,x-lrg As directed 20-30 mm HG cyanocobalamin (vitamin B-12) 1,000 mcg PO DAILY fluoxetine 40 mg PO DAILY gabapentin 300 mg PO BEDTIME 90 days lidocaine 5% 1 patch topical Q24H lisinopril-hydrochlorothiazide 20-12.5 mg 1 tab PO BID 90 days multivitamin 1 tab PO DAILY nebulizers (Aeroneb Go Nebulizer) As directed thiamine mononitrate (vit B1) 100 mg PO DAILY 90 days tramadol 50 mg PO TID 30 days vitamin A caps PO Tobacco use date assessed: 06/06/24 Dental Screening Dental Screen Date: 06/06/24 Did you have a dental visit in the last 12 months?: Yes Did you have a dental problem in the last 6 months where you did not have access to dental care?: No Was dental information given to patient?: Patient has dentist HPI 3 month follow up , BP HPI Details 53-year-old obese female with a history of gastric bypass March 2020 hypertension obstructive sleep apnea bilateral knee osteoarthritis depression asthma coming in for follow-up. Last notes in the chart last year. Patient's mammogram is up-to-date 03/19/2024 gynecology was 03/19/2023. EGD done barium bariatric surgeon received image 05/09/2024. Review of the notes 02/18/2024 hospitalization for suicidal thoughts while intoxicated did have a 15-year-old son committing suicide. October 2023. 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 In October was seen by the Orthopedics for the right knee injection done. Patient continues to be on tramadol for the knee pain as the injections did not help. Meanwhile patient has lost insurance and now has gotten it back and has not had any medication and will need refills. Patient also has been trying to get a schedule for Psychiatry to get back counseling. Patient has a form for work and will get back to work July 2024. [facility] Medical History (Updated 06/06/24 @ 13:41 by Michael Melvin MD) Osteoarthritis of right knee Osteoarthritis of left knee PTSD (post-traumatic stress disorder) Anxiety Asthma exacerbation Injury, foot Anemia Peripheral vascular disease Vitamin D deficiency Benign essential hypertension Obstructive sleep apnea Osteoarthritis of knees, bilateral Surgical History History of esophagogastroduodenoscopy (EGD) Hx of flexible sigmoidoscopy History of section History of breast lift H/O gastric bypass History of cholecystectomy Family History Father Lung cancer Liver cancer Hepatitis C Mother CVD (cerebrovascular disease) Stroke Diabetes Brother PTSD (post-traumatic stress disorder) Sister Hx of sleep apnea Asthma Son No problems noted. 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 1. Little interest or pleasure in doing things: more than half the days 2. Feeling down, depressed, or hopeless: nearly every day 3. Trouble falling or staying asleep, or sleeping too much: nearly every day 4. Feeling tired or having little energy: nearly every day 5. Poor appetite or overeating: nearly every day 6. Feeling bad about yourself - or that you are a failure or have let yourself or your family down: not at all 7. Trouble concentrating on things, such as reading the newspaper or watching television: not at all 8. Moving or speaking so slowly that other people could have noticed. Or the opposite - being so fidgety or restless that you have been moving around a lot more than usual: not at all 9. Thoughts that you would be better off or of hurting yourself in some way: not at all Total score: 14 Depression Screening Interpretation: Positive Depression Screening Done: Yes Source: Developed by Drs. Casimiro Wagoner, Garima Marshall, Shayne Roa and colleagues, with an educational kunal from [employer]. Thrive Questionnaire Date Thrive assessed: 06/06/24 I am a: Patient What is your living situation today?: I have a steady place to live Within the past 12 months, did the food you bought not last and you didn't have the money to get more?: Never true Within the past 12 months, did you worry whether your food would run out before you got money to buy more?: Never true Do you have trouble paying for medicines?: No Do you have trouble getting transportation to medical appointments?: No Do you have trouble paying your heating and electricity bill?: No Do you have trouble taking care of your child, family member or friend?: No Do you have trouble with day-to-day activities such as bathing, preparing meals, shopping, managing finances, etc.?: No Are you currently unemployed and looking for a job?: I choose not to answer this question Are you interested in more education?: No Currently or been in a relationship where the following occur: No concerns reported THRIVE Score: 0 AUDIT C Alcohol Use Questionnaire (AUDIT-C) 1. How often do you have a drink containing alcohol?: Never 2. How many drinks containing alcohol do you have on a typical day when you are drinking?: 1 or 2 3. How often do you have six or more drinks on one occasion?: Never Total Score: 0 DEBRA-7 AMB Questionnaire DEBRA-7 Date DEBRA - 7 assessed: 06/06/24 Feeling nervous, anxious, or on edge: 0 = Not at all Not being able to stop or control worryin = Not at all Worrying too much about different things: 0 = Not at all Trouble relaxin = Not at all Being so restless that it is hard to sit still: 0 = Not at all Becoming easily annoyed or irritable: 0 = Not at all Feeling afraid as if something awful might happen: 0 = Not at all Total DEBRA-7 score (0-4 normal; 5-9 mild; 10-14 moderate; 15-21 severe): 0 Source: Developed by Drs. Casimiro Wagoner, Garima Marshall, Shayne Roa and colleagues, with an educational kunal from [employer]. Physical exam (Primary Care) Vital Signs: Last Vital Signs BP 140/82 H 06/06/24 13:12 BMI result Body Mass Index 39.4 Tobacco/Smoking Status: Tobacco use Status Tobacco use date assessed 06/06/24 06/06/24 13:06 Patient Tobacco Use Status Never used Tobacco 06/06/24 13:06 e-Cigarette/Vaping Use Never Used 06/06/24 13:06 PHQ-9: PHQ-9 Score PHQ-9: Total score 14 06/06/24 13:49 Depression Screening Interpretation: Positive Thrive Assessment: Date of Thrive Assessment Date Thrive assessed 06/06/24 06/06/24 13:06 Currently or been in a relationship where the following occur: No concerns reported Const General: alert; No acute distress Eyes Conjunctivae: conjunctivae normal Resp Other: Bilateral lung wheezing Auscultation: wheezes Cardio Rate: regular rate Rhythm: regular rhythm GI Inspection: Yes normal to inspection Extrem General: Yes normal to inspection and No edema Office Procedures Flu Questionnaire Does the patient have a severe egg allergy?: No Does the patient have severe life threatening allergies?: No Does the patient have a fever or illness today?: No Has the patient ever had Guillain-[place] Syndrome?: No Has the patient ever had any past reaction to a flu shot?: No Immunizations Fluarix Triv [id number] (PF) 45 mcg (15 mcg x 3)/0.5 mL IM syringe Performing Provider: Michael Melvin MD [facility] Administered by: So Mcmillan LPN on 06/06/24 13:49 Dose Route Admin Location Dispensed Lot Number Expiration Date NDC Apprentice Painter Hand 0.5 mL IM Left Deltoid 0.5 mL [id number] 02/27/25 [id number] [employer] VIS Given Date VIS Provided VIS Publication Date 06/06/24 Single Vaccine 21 Eligibility Eligibility Date Funding Source Not [facility] Eligible 06/06/24 Private Coding Level of Care Code Est Pt Level 4 (08870) Diagnoses Obesity E66.9 H/O gastric bypass Z98.84 Benign essential hypertension I10 Primary osteoarthritis of both knees M17.0 Osteoarthritis type: primary Severe episode of recurrent major depressive disorder, without psychotic features F33.2 Psychotic features: without psychotic features Mild intermittent asthma without complication J45.20 Asthma complication type: uncomplicated Asthma persistence: intermittent Asthma severity: mild Assessment & Plan Assessment & Plan (1) Obesity: Code(s): E66.9 - Obesity, unspecified Category: Medical Plan: Diet and exercise patient also follows up with bariatric surgeon (2) H/O gastric bypass: Comment: GBP 2019 -conversion of gastric bypass to biliopancreatic limb bypass Dr. Sow 03/2020 Code(s): Z98.84 - Bariatric surgery status Category: Surgical Plan: Continue to follow-up with bariatric surgeon was advised not to be on any of the wegovy or socks send the medication. (3) Benign essential hypertension: Comment: December 2017 EF 60-65 Code(s): I10 - Essential (primary) hypertension Category: Medical Plan: Continue with blood pressure medication. Decrease salt intake and exercise patient on lisinopril hydrochlorothiazide 20/12.5 amlodipine 5 mg once a day. PAtient admits to have not taken med due to financial reasons (4) Osteoarthritis of knees, bilateral: Code(s): M17.0 - Bilateral primary osteoarthritis of knee Category: Medical Qualifiers: Osteoarthritis type: primary Qualified Code(s): M17.0 - Bilateral primary osteoarthritis of knee Plan: Continue to follow-up with orthopedics has had injections of the knee (5) MDD (major depressive disorder), recurrent episode, severe: Comment: psychiatry [facility], counselling q week, [facility] Code(s): F33.2 - Major depressive disorder, recurrent severe without psychotic features Category: Medical Qualifiers: Psychotic features: without psychotic features Qualified Code(s): F33.2 - Major depressive disorder, recurrent severe without psychotic features Plan: Continue with counseling and therapy (6) Asthma: Code(s): J45.909 - Unspecified asthma, uncomplicated Category: Medical Qualifiers: Asthma complication type: uncomplicated Asthma persistence: intermittent Asthma severity: mild Qualified Code(s): J45.20 - Mild intermittent asthma, uncomplicated Plan: PAtient has been wheezing admits to not taking med due to financial reasons Orders: Orders Complete Blood Count Auto Diff Today I10 - Essential (primary) hypertension Comprehensive Met. Panel Today I10 - Essential (primary) hypertension Thyroid Stimulating Hormone Today I10 - Essential (primary) hypertension Vitamin D 25-OH Total Today I10 - Essential (primary) hypertension UA CC w/rflx Micro + Cult Today I10 - Essential (primary) hypertension, R30.0 - Dysuria Free T4 (Free Thyroxine) Today I10 - Essential (primary) hypertension Lipid Panel Today E78.00 - Pure hypercholesterolemia, unspecified, I10 - Essential (primary) hypertension Vitamin B12 and Folate Today I10 - Essential (primary) hypertension Influenza [id number] Immunization Today Z23 - Encounter for immunization Medications: New fluoxetine 40 mg PO DAILY 90 caps 0RF Changed From cholecalciferol (vitamin D3) 1,250 mcg PO QWEEK To cholecalciferol (vitamin D3) 2,000 units PO .QD 90 caps 2RF Refilled tramadol 50 mg PO TID 90 tabs 0RF 30 days M17.0 - Bilateral primary osteoarthritis of knee amlodipine 5 mg PO DAILY 90 tabs 1RF I10 - Essential (primary) hypertension albuterol sulfate 90 mcg/actuation (Ventolin HFA) 2 puffs inhalation Q6H PRN 8.5 grams 0RF for wheezing J45.20 - Mild intermittent asthma, uncomplicated budesonide-formoterol 160-4.5 mcg/actuation (Symbicort) 2 puffs inhalation BID 10.2 grams 12RF 30 days J45.20 - Mild intermittent asthma, uncomplicated lisinopril-hydrochlorothiazide 20-12.5 mg 1 tab PO BID 180 tabs 1RF 90 days I10 - Essential (primary) hypertension thiamine mononitrate (vit B1) 100 mg PO DAILY 90 tabs 2RF 90 days
[2024-06-06 13:12] VITALS: BP 140/82; BMI 39.4
== END 2024-06-06 13:48 | disposition home or self-care (01) ==
PROVIDERS: PCP Internal Medicine; Visit Provider Internal Medicine
DX: I10 Essential (primary) hypertension (principal); E66.812 Obesity, class 2; Z68.39 Body mass index [BMI] 39.0-39.9, adult; F33.2 Major depressive disorder, recurrent severe without psychotic features; Z98.84 Bariatric surgery status; M17.0 Bilateral primary osteoarthritis of knee; J45.20 Mild intermittent asthma, uncomplicated; Z23 Encounter for immunization

== ENCOUNTER → 2024-06-06 12:57 | Outpatient (BNVA) | payer OTHER, SELFPAY | PROVIDERS: PCP Internal Medicine; Visit Provider Internal Medicine | DX: Z23 Encounter for immunization (principal); E66.9 Obesity, unspecified; I10 Essential (primary) hypertension; M17.0 Bilateral primary osteoarthritis of knee; F33.2 Major depressive disorder, recurrent severe without psychotic features; J45.20 Mild intermittent asthma, uncomplicated; Z98.84 Bariatric surgery status | CPT/HCPCS: 90471; 90656; 99212 ==

== ENCOUNTER 2024-08-05 08:27 | Outpatient (AMB) | payer OTHER, SELFPAY ==
--- NOTE | 2024-08-05 08:35 | A.OFFVIS_ITS ---
Intake Visit Reasons: Inj- B/L Knee Durolane Gel Inj Intake Note: Yaritza is a 54 year old female who presents today for her bilateral knee Durolane Gel injections. Allergies piperacillin Allergy (Unknown, Verified 08/05/24 08:44) hives HPI HPI Inj- B/L Knee Durolane Gel Inj: Details: 54-year-old female who presents in the office today for a follow-up of bilateral knee pain. I last saw the patient in the office on 10/29/23 for right knee pain. At that encounter we discussed conservative versus surgical intervention including, cortisone injection and right total knee arthroplasty. The patient expressed interest in proceeding with a right total knee arthroplasty; however, we discussed weight loss, and the goal weight is to reach 180 lbs prior proceeding with the surgery. She was given a cortisone injection in the bilateral knee on that visit. While in the office today, the patient reports bilateral knee pain. She would like to proceed with the Durolane Gel injection in the bilateral knees today. [facility] Medical History (Updated 06/06/24 @ 13:41 by Michael Melvin MD) Osteoarthritis of right knee Osteoarthritis of left knee PTSD (post-traumatic stress disorder) Anxiety Asthma exacerbation Injury, foot Anemia Peripheral vascular disease Vitamin D deficiency Benign essential hypertension Obstructive sleep apnea Osteoarthritis of knees, bilateral Surgical History History of esophagogastroduodenoscopy (EGD) Hx of flexible sigmoidoscopy History of section History of breast lift H/O gastric bypass History of cholecystectomy Family History Father Lung cancer Liver cancer Hepatitis C Mother CVD (cerebrovascular disease) Stroke Diabetes Brother PTSD (post-traumatic stress disorder) Sister Hx of sleep apnea Asthma Son No problems noted. 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 Sexual orientation: Straight/Heterosexual Gender identity: Female Cognitive needs: No Hearing needs: No Vision needs: No Female Reproductive History Menstrual Age of Menarche: 16 Review of Systems Const All systems reviewed & are unremarkable except as noted in HPI and below Physical Exam Const General: cooperative, healthy appearing and no acute distress Orientation/consciousness: patient oriented x3 Resp Effort & Inspection: normal respiratory effort and able to speak in complete sentences Cardio Rate: regular rate Peripheral pulses: Peripheral pulses 2+ throughout GI Palpation (GI): Soft to palpation Skin General skin exam: no rashes or lesions noted Lesions: no lesions Rashes: no rashes Neuro General: patient oriented x3 Extrem Other: Bilateral knees normal to inspection. No ecchymosis, redness or joint effusion. Patient is able to flex extend and range. No crepitus felt with range of motion. Negative [place]'s. Negative anterior drawer. NVI. Office Procedures AMB Joint Injection/Aspiration Joint Injection/Aspiration Primary Site: right knee Secondary Site: left knee Prep: site was prepped using aseptic technique, ethochloride spray was applied and injection warnings given Injected: in the joint (Durolane) Approach Used: anterolateral Procedure: The patient tolerated the procedure well, but had some pain with the injection and there was some relief with the local anesthesia Coding 47408 - Large joint Procedure code (CPT) selection complete Assessment & Plan Assessment & Plan (1) Osteoarthritis of right knee: Code(s): M17.11 - Unilateral primary osteoarthritis, right knee Category: Medical Qualifiers: Osteoarthritis type: unspecified Qualified Code(s): M17.11 - Unilateral primary osteoarthritis, right knee (2) Osteoarthritis of left knee: Code(s): M17.12 - Unilateral primary osteoarthritis, left knee Category: Medical Qualifiers: Osteoarthritis type: unspecified Qualified Code(s): M17.12 - Unilateral primary osteoarthritis, left knee Plan Ms. Recio is a 54-year-old female who presents in the office today for a follow- up of bilateral knee pain. I last saw the patient in the office on 10/29/23 for right knee pain. At that encounter we discussed conservative versus surgical int ervention including, cortisone injection and right total knee arthroplasty. The patient expressed interest in proceeding with a right total knee arthroplasty; however, we discussed weight loss, and the goal weight is to reach 180 lbs prior proceeding with the surgery. She was given a cortisone injection in the bilateral knee on that visit. While in the office today, the patient reports bilateral knee pain. She would like to proceed with the Durolane Gel injection in the bilateral knees today. The patient was offered a Durolane Gel injection in the bilateral knees. The patient was explained the risks, benefits, and alternatives to receiving this injection. After receiving consent for the injection, the patient had the procedure done while in the office today. The patient tolerated the procedure well with no complication. Follow-up will be PRN, or sooner if needed. Patient Instructions: Scribed by Laurtia Oliveros medical engineer, for Ariannagerardo Ramirez PA-C on 08/05/24 at 9:05 am EST. Coding Level of Care Code Procedure Only Diagnoses Osteoarthritis of right knee, unspecified osteoarthritis type M17.11 Osteoarthritis type: unspecified Osteoarthritis of left knee, unspecified osteoarthritis type M17.12 Osteoarthritis type: unspecified CPT Codes Coding - 44151 Large joint: 61952 - Large joint ([id number])
== END 2024-08-05 08:51 | disposition home or self-care (01) ==
PROVIDERS: PCP Internal Medicine; Visit Provider Physician Assistant
DX: M17.0 Bilateral primary osteoarthritis of knee (principal)
CPT/HCPCS: 20610

== ENCOUNTER → 2024-08-05 08:27 | Outpatient (BNVA) | payer OTHER, SELFPAY | PROVIDERS: PCP Internal Medicine; Visit Provider Physician Assistant | DX: M17.0 Bilateral primary osteoarthritis of knee (principal) | CPT/HCPCS: 20610; J7318 ==

== ENCOUNTER 2024-10-20 16:01 | Outpatient (AMB) | payer OTHER, SELFPAY ==
[2024-10-20 16:03] VITALS: BP 130/82; PULSE 102; O2SAT 97; BMI 39.0
--- NOTE | 2024-10-20 16:03 | MHC.PC.OV ---
Vital Signs 10/20/24 16:03 Height 5 ft 10 in Weight 272 lb 2 oz BMI 39.0 BP 130/82 Blood Pressure Location Lt brachial Position Sitting Pulse 102 H Pulse Source Pulse Oximeter Pulse Oximetry (%) 97 Oxygen Delivery Method Room Air Intake Visit Reasons: Asthma Detective Captain Required: No Accompanied by: Self / Same As Patient Allergies piperacillin Allergy (Unknown, Verified 10/20/24 16:03) hives Medication List - Last Reconciled 10/20/24 by Michael Melvin MD albuterol sulfate 90 mcg/actuation (Ventolin HFA) 2 puffs inhalation Q6H PRN albuterol sulfate 2.5 mg (3 mL) inhalation Q4-6H PRN amlodipine 5 mg PO DAILY betamethasone dipropionate 0.05% 1 appl topical DAILY PRN budesonide-formoterol 160-4.5 mcg/actuation (Symbicort) 2 puffs inhalation BID 30 days cholecalciferol (vitamin D3) 2,000 units PO .QD clotrimazole 1% 1 appl topical BID 4 weeks comp.stocking,thigh,long,x-lrg As directed 20-30 mm HG cyanocobalamin (vitamin B-12) 1,000 mcg PO DAILY fluoxetine 40 mg PO DAILY gabapentin 300 mg PO BEDTIME 90 days lidocaine 5% 1 patch topical Q24H lisinopril-hydrochlorothiazide 20-12.5 mg 1 tab PO BID 90 days multivitamin 1 tab PO DAILY nebulizers (Aeroneb Go Nebulizer) As directed thiamine mononitrate (vit B1) 100 mg PO DAILY 90 days tramadol 50 mg PO TID 30 days vitamin A caps PO Tobacco use date assessed: 10/20/24 Dental Screening Dental Screen Date: 10/20/24 Did you have a dental visit in the last 12 months?: Yes Did you have a dental problem in the last 6 months where you did not have access to dental care?: No Was dental information given to patient?: Patient has dentist HPI Asthma HPI Details The patient is a 54-year-old female presenting with obstructive sleep apnea and knee pain. The patient has a history of obstructive sleep apnea and has experienced intolerance to CPAP therapy. Despite difficulty tolerating this therapy, efforts to address the condition and its impact continue. The patient has bilateral knee osteoarthritis, which has been under the care of orthopedics. She has received knee injections, most recently with Duraline in July 2024. However, knee pain persists, impacting daily activities, and surgical consideration requires her weight to be under a certain threshold. Past medical history includes significant weight loss, notably around 60 pounds, but the patient still aims to meet surgical eligibility criteria. The patient had undergone gastric bypass in 2000 and a conversion to biliopancreatic limb bypass in 2019. The patient manages her major depressive disorder with fluoxetine and continues to engage in counseling and therapy. Other noteworthy conditions include essential hypertension managed by amlodipine and lisinopril-hydrochlorothiazide, peripheral vascular disease, asthma managed with albuterol and Symbicort, all significantly contributing to her overall health status and treatment course. [facility] Medical History (Updated 10/20/24 @ 16:21 by Michael Melvin MD) Osteoarthritis of right knee Osteoarthritis of left knee PTSD (post-traumatic stress disorder) Anxiety Asthma exacerbation Injury, foot Anemia Peripheral vascular disease Vitamin D deficiency Benign essential hypertension Obstructive sleep apnea Osteoarthritis of knees, bilateral Surgical History History of esophagogastroduodenoscopy (EGD) Hx of flexible sigmoidoscopy History of section History of breast lift H/O gastric bypass History of cholecystectomy Family History Father Lung cancer Liver cancer Hepatitis C Mother CVD (cerebrovascular disease) Stroke Diabetes Brother PTSD (post-traumatic stress disorder) Sister Hx of sleep apnea Asthma Son No problems noted. 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 1. Little interest or pleasure in doing things: more than half the days 2. Feeling down, depressed, or hopeless: nearly every day 3. Trouble falling or staying asleep, or sleeping too much: nearly every day 4. Feeling tired or having little energy: nearly every day 5. Poor appetite or overeating: nearly every day 6. Feeling bad about yourself - or that you are a failure or have let yourself or your family down: not at all 7. Trouble concentrating on things, such as reading the newspaper or watching television: not at all 8. Moving or speaking so slowly that other people could have noticed. Or the opposite - being so fidgety or restless that you have been moving around a lot more than usual: not at all 9. Thoughts that you would be better off or of hurting yourself in some way: not at all Total score: 14 Depression Screening Interpretation: Positive Depression Screening Done: Yes Source: Developed by Drs. Casimiro Wagoner, Garima Marshall, Shayne Roa and colleagues, with an educational kunal from [employer]. Thrive Questionnaire Date Thrive assessed: 10/20/24 I am a: Patient What is your living situation today?: I have a steady place to live Within the past 12 months, did the food you bought not last and you didn't have the money to get more?: Never true Within the past 12 months, did you worry whether your food would run out before you got money to buy more?: Never true Do you have trouble paying for medicines?: No Do you have trouble getting transportation to medical appointments?: No Do you have trouble paying your heating and electricity bill?: No Do you have trouble taking care of your child, family member or friend?: No Do you have trouble with day-to-day activities such as bathing, preparing meals, shopping, managing finances, etc.?: No Are you currently unemployed and looking for a job?: I choose not to answer this question Are you interested in more education?: No Please select the resources that you would like help with: None Currently or been in a relationship where the following occur: No concerns reported THRIVE Score: 0 AUDIT C Alcohol Use Questionnaire (AUDIT-C) 1. How often do you have a drink containing alcohol?: Never 2. How many drinks containing alcohol do you have on a typical day when you are drinking?: 1 or 2 3. How often do you have six or more drinks on one occasion?: Never Total Score: 0 DEBRA-7 AMB Questionnaire DEBRA-7 Date DEBRA - 7 assessed: 10/20/24 Feeling nervous, anxious, or on edge: 0 = Not at all Not being able to stop or control worryin = Not at all Worrying too much about different things: 0 = Not at all Trouble relaxin = Not at all Being so restless that it is hard to sit still: 0 = Not at all Becoming easily annoyed or irritable: 0 = Not at all Feeling afraid as if something awful might happen: 0 = Not at all Total DEBRA-7 score (0-4 normal; 5-9 mild; 10-14 moderate; 15-21 severe): 0 Source: Developed by Drs. Casimiro Wagoner, Garima Marshall, Shayne Roa and colleagues, with an educational kunal from [employer]. Physical exam (Primary Care) Vital Signs: Last Vital Signs Pulse 102 H 10/20/24 16:03 BP 130/82 10/20/24 16:03 Pulse Ox 97 10/20/24 16:03 Oxygen Delivery Method Room Air 10/20/24 16:03 BMI result Body Mass Index 39.0 Tobacco/Smoking Status: Tobacco use Status Tobacco use date assessed 10/20/24 10/20/24 16:08 Patient Tobacco Use Status Never used Tobacco 10/20/24 16:08 e-Cigarette/Vaping Use Never Used 10/20/24 16:08 PHQ-9: PHQ-9 Score PHQ-9: Total score 14 10/20/24 16:08 Depression Screening Interpretation: Positive Thrive Assessment: Date of Thrive Assessment Date Thrive assessed 10/20/24 10/20/24 16:08 Currently or been in a relationship where the following occur: No concerns reported Const General: alert; No acute distress Eyes Conjunctivae: conjunctivae normal Resp Auscultation: clear to auscultation bilaterally Cardio Rate: regular rate Rhythm: regular rhythm GI Inspection: Yes normal to inspection Extrem General: Yes normal to inspection and No edema Coding Level of Care Code Est Pt Level 4 (06212) Complex EM visit Add On G2211 Diagnoses H/O gastric bypass Z98.84 Benign essential hypertension I10 Obstructive sleep apnea G47.33 Primary osteoarthritis of both knees M17.0 Osteoarthritis type: primary Colon cancer screening Z12.11 Severe episode of recurrent major depressive disorder, without psychotic features F33.2 Psychotic features: without psychotic features Obesity (BMI 30-39.9) E66.9 Assessment & Plan Assessment & Plan (1) H/O gastric bypass: Comment: 2000- GBP 2019 -conversion of gastric bypass to biliopancreatic limb bypass Dr. Sow 03/2020 Code(s): Z98.84 - Bariatric surgery status Category: Surgical Plan: Continue to follow-up with bariatric surgeon (2) Benign essential hypertension: Comment: Echo December 2017 EF 60-65 Code(s): I10 - Essential (primary) hypertension Category: Medical Plan: Continue with blood pressure medication. Decrease salt intake and exercise on amlodipine 5 mg once a day lisinopril hydrochlorothiazide 20/12.5 mg once a day (3) Obstructive sleep apnea: Comment: cannot tolerate CPAP 11/2020 Code(s): G47.33 - Obstructive sleep apnea (adult) (pediatric) Category: Medical Plan: Discussed about treatment of obstructive sleep apnea and importance. (4) Osteoarthritis of knees, bilateral: Code(s): M17.0 - Bilateral primary osteoarthritis of knee Category: Medical Qualifiers: Osteoarthritis type: primary Qualified Code(s): M17.0 - Bilateral primary osteoarthritis of knee Plan: Patient follows up with ortho and has had injections with Durolane (5) Colon cancer screening: Code(s): Z12.11 - Encounter for screening for malignant neoplasm of colon Category: Medical Plan: Patient is reminded about colonoscopy (6) MDD (major depressive disorder), recurrent episode, severe: Comment: psychiatry [facility], counselling q week, [facility] Code(s): F33.2 - Major depressive disorder, recurrent severe without psychotic features Category: Medical Qualifiers: Psychotic features: without psychotic features Qualified Code(s): F33.2 - Major depressive disorder, recurrent severe without psychotic features Plan: Continue to follow-up with counseling and therapy on fluoxetine (7) Obesity (BMI 30-39.9): Code(s): E66.9 - Obesity, unspecified Category: Medical Plan: Diet and exercise Plan 1. 5 mg daily: - For bilateral knee osteoarthritis, coordinate continued orthopedic follow-up and pursue weight management strategies to meet surgical criteria if necessary. Administer knee injections as needed and consider potential switch to alternate medications like Mounjaro or Wegovy for weight management. - Continue asthma management: Ensure the patient has access to albuterol inhaler and nebulizer refills, and Symbicort for maintenance therapy. - Persist with peripheral vascular disease management, monitoring symptoms, and adjust treatment as necessary. - Reinforce adherence to counseling and fluoxetine therapy for major depressive disorder. - Encourage regular follow-up with the bariatric surgeon and monitoring of nutritional and metabolic status post-surgery. - Update on vaccinations: Confirm patient's record of flu and COVID vaccines and advise on upcoming immunizations as per latest guidelines. - Inquire further about colorectal cancer screening and follow up on the colonoscopy schedule as necessary. Orders: Referrals Gastroenterology Referral Z12.11 - Encounter for screening for malignant neoplasm of colon Medications: New tirzepatide (Mounjaro) for 4 weeks 2.5 mg (0.5 mL) subcut QWEEK 2 mL 0RF E66.9 - Obesity, unspecified Refilled albuterol sulfate 2.5 mg (3 mL) inhalation Q4-6H PRN 90 mL 3RF shortness of breath or wheezing J45.20 - Mild intermittent asthma, uncomplicated
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
== END 2024-10-20 16:32 | disposition home or self-care (01) ==
PROVIDERS: PCP Internal Medicine; Visit Provider Internal Medicine
DX: Z98.84 Bariatric surgery status (principal); I10 Essential (primary) hypertension; G47.33 Obstructive sleep apnea (adult) (pediatric); M17.0 Bilateral primary osteoarthritis of knee; Z12.11 Encounter for screening for malignant neoplasm of colon; F33.2 Major depressive disorder, recurrent severe without psychotic features; E66.9 Obesity, unspecified

== ENCOUNTER → 2024-10-20 16:01 | Outpatient (BNVA) | payer OTHER, SELFPAY | PROVIDERS: PCP Internal Medicine; Visit Provider Internal Medicine | DX: I10 Essential (primary) hypertension (principal); G47.33 Obstructive sleep apnea (adult) (pediatric); M17.0 Bilateral primary osteoarthritis of knee; F33.2 Major depressive disorder, recurrent severe without psychotic features; E66.9 Obesity, unspecified; Z98.84 Bariatric surgery status | CPT/HCPCS: 99212 ==

== ENCOUNTER 2025-01-19 15:25 | Outpatient (AMB) | payer OTHER, SELFPAY ==
--- NOTE | 2025-01-19 15:28 | A.OFFPC_ITS ---
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 Required: No Accompanied by: Self / Same As Patient Allergies piperacillin Allergy (Unknown, Verified 01/19/25 15:29) hives phentermine Adverse Reaction (Intermediate, Unverified 01/19/25 15:50) Palpitations Medication List - Last Reconciled 01/19/25 by Michael Melvin MD albuterol sulfate 2.5 mg (3 mL) inhalation Q4-6H PRN albuterol sulfate 90 mcg/actuation (Ventolin HFA) 2 puffs inhalation Q6H PRN amlodipine 5 mg PO DAILY betamethasone dipropionate 0.05% 1 appl topical DAILY PRN budesonide-formoterol 160-4.5 mcg/actuation (Symbicort) 2 puffs inhalation BID 30 days cholecalciferol (vitamin D3) 2,000 units PO .QD clotrimazole 1% 1 appl topical BID 4 weeks comp.stocking,thigh,long,x-lrg As directed 20-30 mm HG cyanocobalamin (vitamin B-12) 1,000 mcg PO DAILY fluoxetine 40 mg PO DAILY gabapentin 300 mg PO BEDTIME 90 days lidocaine 5% 1 patch topical DAILY lisinopril-hydrochlorothiazide 20-12.5 mg 1 tab PO BID 90 days multivitamin 1 tab PO DAILY nebulizers (Aeroneb Go Nebulizer) As directed thiamine mononitrate (vit B1) 100 mg PO DAILY 90 days tirzepatide (Mounjaro) 2.5 mg (0.5 mL) subcut QWEEK tramadol 50 mg PO TID 30 days vitamin A caps PO Tobacco use date assessed: 01/19/25 Dental Screening Dental Screen Date: 01/19/25 Did you have a dental visit in the last 12 months?: Yes Did you have a dental problem in the last 6 months where you did not have access to dental care?: No Was dental information given to patient?: Patient has dentist [facility] Medical History (Updated 01/19/25 @ 15:47 by Michael Melvin MD) Obesity Osteoarthritis of right knee Osteoarthritis of left knee PTSD (post-traumatic stress disorder) Anxiety Asthma exacerbation Injury, foot Anemia Peripheral vascular disease Vitamin D deficiency Benign essential hypertension Obstructive sleep apnea Osteoarthritis of knees, bilateral Surgical History History of esophagogastroduodenoscopy (EGD) Hx of flexible sigmoidoscopy History of section History of breast lift H/O gastric bypass History of cholecystectomy Family History Father Lung cancer Liver cancer Hepatitis C Mother CVD (cerebrovascular disease) Stroke Diabetes Brother PTSD (post-traumatic stress disorder) Sister Hx of sleep apnea Asthma Son No problems noted. 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 1. Little interest or pleasure in doing things: several days 2. Feeling down, depressed, or hopeless: not at all 3. Trouble falling or staying asleep, or sleeping too much: several days 4. Feeling tired or having little energy: more than half the days 5. Poor appetite or overeating: several days 6. Feeling bad about yourself - or that you are a failure or have let yourself or your family down: not at all 7. Trouble concentrating on things, such as reading the newspaper or watching television: not at all 8. Moving or speaking so slowly that other people could have noticed. Or the opposite - being so fidgety or restless that you have been moving around a lot more than usual: not at all 9. Thoughts that you would be better off or of hurting yourself in some way: not at all Total score: 5 Source: Developed by Drs. Casimiro Wagoner, Garima Marshall, Shayne Roa and colleagues, with an educational kunal from [employer]. Thrive Questionnaire Date Thrive assessed: 01/19/25 I am a: Patient What is your living situation today?: I have a steady place to live Within the past 12 months, did the food you bought not last and you didn't have the money to get more?: Never true Within the past 12 months, did you worry whether your food would run out before you got money to buy more?: Sometimes True Do you have trouble paying for medicines?: I choose not to answer this question Do you have trouble getting transportation to medical appointments?: I choose not to answer this question Do you have trouble paying your heating and electricity bill?: I choose not to answer this question Do you have trouble taking care of your child, family member or friend?: No Do you have trouble with day-to-day activities such as bathing, preparing meals, shopping, managing finances, etc.?: No Are you currently unemployed and looking for a job?: No Are you interested in more education?: No Please select the resources that you would like help with: None Currently or been in a relationship where the following occur: No concerns reported THRIVE Score: 1 AUDIT C Alcohol Use Questionnaire (AUDIT-C) 1. How often do you have a drink containing alcohol?: 2-4 times a month 2. How many drinks containing alcohol do you have on a typical day when you are drinking?: 5 or 6 3. How often do you have six or more drinks on one occasion?: Monthly Total Score: 6 DEBRA-7 AMB Questionnaire DEBRA-7 Date DEBRA - 7 assessed: 01/19/25 Feeling nervous, anxious, or on edge: 0 = Not at all Not being able to stop or control worryin = Not at all Worrying too much about different things: 0 = Not at all Trouble relaxin = Not at all Being so restless that it is hard to sit still: 0 = Not at all Becoming easily annoyed or irritable: 0 = Not at all Feeling afraid as if something awful might happen: 0 = Not at all Total DEBRA-7 score (0-4 normal; 5-9 mild; 10-14 moderate; 15-21 severe): 0 Source: Developed by Drs. Casimiro Wagoner, Garima Marshall, Shayne Roa and colleagues, with an educational kunal from [employer]. Physical exam (Primary Care) Vital Signs: Last Vital Signs Pulse 97 01/19/25 15:29 BP 136/80 01/19/25 15:29 Pulse Ox 96 01/19/25 15:29 Oxygen Delivery Method Room Air 01/19/25 15:29 BMI result Body Mass Index 39.3 Tobacco/Smoking Status: Tobacco use Status Tobacco use date assessed 01/19/25 01/19/25 15:36 Patient Tobacco Use Status Never used Tobacco 01/19/25 15:36 e-Cigarette/Vaping Use Never Used 01/19/25 15:36 PHQ-9: PHQ-9 Score PHQ-9: Total score 5 01/19/25 15:48 Thrive Assessment: Date of Thrive Assessment Date Thrive assessed 01/19/25 01/19/25 15:36 Currently or been in a relationship where the following occur: No concerns reported Const General: alert; No acute distress Eyes Conjunctivae: conjunctivae normal Resp Auscultation: clear to auscultation bilaterally Cardio Rate: regular rate Rhythm: regular rhythm GI Inspection: Yes normal to inspection Extrem General: Yes normal to inspection and No edema Coding Level of Care Code Est Pt Level 4 (59437) Complex EM visit Add On G2211 Diagnoses Obesity (BMI 30-39.9) E66.9 Mild intermittent asthma without complication J45.20 Asthma complication type: uncomplicated Asthma persistence: intermittent Asthma severity: mild Iron deficiency anemia D50.9 Severe episode of recurrent major depressive disorder, without psychotic features F33.2 Psychotic features: without psychotic features H/O gastric bypass Z98.84 Colon cancer screening Z12.11 Benign essential hypertension I10 Obstructive sleep apnea G47.33 Assessment & Plan Assessment & Plan (1) Obesity (BMI 30-39.9): Code(s): E66.9 - Obesity, unspecified Category: Medical Plan: Diet and exercise patient is follow-up with bariatric surgeon and has been started on phentermine (2) Asthma: Code(s): J45.909 - Unspecified asthma, uncomplicated Category: Medical Qualifiers: Asthma complication type: uncomplicated Asthma persistence: intermittent Asthma severity: mild Qualified Code(s): J45.20 - Mild intermittent asthma, uncomplicated Plan: Continuing with albuterol inhaler and has been placed on Symbicort (3) Iron deficiency anemia: Code(s): D50.9 - Iron deficiency anemia, unspecified Category: Medical Plan: Patient needs blood work follow-up (4) MDD (major depressive disorder), recurrent episode, severe: Comment: psychiatry [facility], counselling q week, [facility] Code(s): F33.2 - Major depressive disorder, recurrent severe without psychotic features Category: Medical Qualifiers: Psychotic features: without psychotic features Qualified Code(s): F33.2 - Major depressive disorder, recurrent severe without psychotic features Plan: Continue with counseling and therapy on fluoxetine 40 mg once a day (5) H/O gastric bypass: Comment: 2000- GBP 2019 -conversion of gastric bypass to biliopancreatic limb bypass Dr. Sow 03/2020 Code(s): Z98.84 - Bariatric surgery status Category: Medical Plan: Continue to follow-up with bariatric surgeon (6) Colon cancer screening: Code(s): Z12.11 - Encounter for screening for malignant neoplasm of colon Category: Medical Plan: Patient is reminded about colonoscopy (7) Benign essential hypertension: Comment: Echo December 2017 EF 60-65 Code(s): I10 - Essential (primary) hypertension Category: Medical Plan: Continue with blood pressure medication. Decrease salt intake and exercise on lisinopril hydrochlorothiazide amlodipine 5 mg once a day (8) Obstructive sleep apnea: Comment: cannot tolerate CPAP 11/2020 Code(s): G47.33 - Obstructive sleep apnea (adult) (pediatric) Category: Medical Plan History of Present Illness The patient is a 54-year-old female presenting for follow-up on her chronic conditions, which include obesity, essential hypertension, obstructive sleep apnea, and a history of bariatric surgery. Since 2000, she has had a gastric bypass, which was revised in 2019. She's managing her obesity with the assistance of her bariatric surgeon, who recently started her on phentermine. Her last complete blood count in January 2023 showed normal results. She has a history of alcohol abuse and recurrent major depressive disorder, which is managed with daily fluoxetine. Her asthma is managed with albuterol and Symbicort. She also has a diagnosis of peripheral vascular disease noted after her panniculectomy. In terms of health maintenance, her mammogram is current, although her colonoscopy is pending. For her hypertension, she is on a regimen of lisinopril, hydrochlorothiazide, and amlodipine. The patient has been reminded of her necessary follow-up appointments and the importance of upcoming screenings. Health Maintenance - Mammogram up-to-date - Colonoscopy pending - Blood pressure management: lisinopril, hydrochlorothiazide, amlodipine - Weight management: follow-up with bariatric surgeon, started on phentermine - Asthma management: albuterol inhaler, Symbicort - Depression management: fluoxetine 40 mg daily Social History - Alcohol Use Disorder, history of alcohol abuse - Obesity and weight management efforts - Exercises: Details unspecified - Diet management in coordination with bariatric surgeon Review of Systems - Respiratory: Reports asthma, managed with inhalers - Psychiatric: Reports recurrent major depressive disorder, managed with fluoxetine - Cardiovascular: Reports hypertension, managed with medication - Gastrointestinal: Reports post-gastric bypass history - Hematologic: Reports iron deficiency anemia Physical Exam Results - Labs: Last complete blood count in January 2023 with normal results Plan The patient's obesity management involves phentermine and ongoing care with a bariatric surgeon. Hypertension therapy is maintained with lisinopril, hydrochlorothiazide, and amlodipine. Asthma treatment consists of albuterol and Symbicort inhalers. Depression management continues on fluoxetine with continuous counseling. Monitoring of iron deficiency anemia and peripheral vascular disease is emphasized, and follow-up for her pending colonoscopy is crucial. Previous lab findings confirm stable conditions overall. Patient was informed and verbally consented to the use of an ambient scribe for clinic note documentation during this visit. Discussion Notes I discussed the patient's ongoing management of obesity, hypertension, obstructive sleep apnea, asthma, peripheral vascular disease, iron deficiency anemia, and recurrent major depressive disorder. The benefits and potential side effects of phentermine were reviewed, and the importance of adhering to the medication for blood pressure control was emphasized. We discussed the patient's preventative screening, noting her mammogram was current but highlighted the need to schedule her pending colonoscopy. We talked about the patient's follow- up with her bariatric surgeon and maintaining her asthma medication regimen. I affirmed the importance of continuous treatment for depression with fluoxetine. Patient Instructions - Continue medications for blood pressure as prescribed daily - Keep using asthma inhalers as directed - Adhere to the current fluoxetine regimen for depression - Follow up with the bariatric surgeon as scheduled - Schedule and complete pending colonoscopy - Monitor for any changes in symptoms and report accordingly Medications: Changed From tirzepatide (Mounjaro) for 4 weeks 2.5 mg (0.5 mL) subcut QWEEK 2 mL 0RF E66.9 - Obesity, unspecified To tirzepatide (Mounjaro) for 4 weeks( had palpitions with phentermine) 2.5 mg (0.5 mL) subcut QWEEK 2 mL 1RF E66.9 - Obesity, unspecified
--- OUTSIDE RECORDS SUMMARY | 2025-01-19 15:28 | XMS_ITS | Clinical Summary ---
Author Organization [address] [facility] Address [address] [place] [address] Phone Care Team Providers Care Reinforced Concrete Inspector Name Role Phone Michael Melvin MD Primary Care Provider [phone] Allergies No known active allergies Medications acetaminophen (TYLENOL) 500 mg tablet TAKE 2 TABLETS BY MOUTH EVERY 8 HOURS NEEDED FOR 30 DAYS 0 Active cyanocobalamin, vitamin B-12, 1,000 mcg tablet, [...] 8 hours as needed (nausea). 0 Active multivit-min/iron /folic acid/K (ADULTS MULTIVITAMIN ORAL) Take?by mouth. Active cholecalciferol (VITAMIN D-3) 1,250 mcg (50,000 unit) capsuleIndication s:Vitamin D deficiency, unspecified TAKE 1 CAPSULE BY MOUTH ONE TIME PER WEEK 4 capsule 1 5 Active vitamin A 3,000 mcg (10,000 unit) capsuleIndication s:Vitamin a deficiency, unspecified TAKE 5 CAPSULES BY MOUTH TWICE A DAY 300 capsule 1 5 Active phentermine 15 mg capsuleIndication s:Class 2 severe obesity due to excess calories with serious comorbidity and body mass index (BMI) of 39.0 to 39.9 in adult ([facility] V24, [facility] V28) TAKE 1 CAPSULE (15 MG TOTAL) BY MOUTH ONCE DAILY BEFORE BREAKFAST MAX DAILY AMOUNT: 15 MG 30 capsule 5 Active Active Problems Problem Noted Date Diagnosed Date PTSD (post-traumatic stress disorder) 04/30/2020 Overview (06/13/2024): 5945-4990 Osteoarthritis 04/30/2020 Overview (06/13/2024): Knees PURVI (obstructive sleep apnea) 04/30/2020 Hypertension 04/30/2020 Depression 04/30/2020 Asthma 04/30/2020 Anxiety 04/30/2020 Vitamin D deficiency 01/31/2019 Iron deficiency 01/31/2019 Encounters Date Type Department Care Team Description 10/25/2024 1:45 PM EST Office Visit Bariatric Surgery - [address] [place] [address] Sal Sow MD Class 2 severe obesity due to excess calories with serious comorbidity and body mass index (BMI) of 39.0 to 39.9 in adult ([facility] V24, [facility] V28) (Primary Dx); Postoperative intestinal malabsorption from Last 3 Months Surgical History Surgery Date Site/Laterality Comments OTHER SURGICAL HISTORY 2000 PROCEDURE: [place] LAPS GSTR RSTCV PX W/BYP KATRINA-EN-Y LIMB [...] disorder) 04/30/2020 DX:PTSD (post-traumatic stress disorder); COMMENT: [id number] Class 3 severe obesity due t o excess calories with serious comorbidity and body mass index (BMI) of 50.0 to 59.9 in adult ([facility] V24, [facility] V28) 01/26/2019 DX:Class 3 severe obesity due to excess calories with serious comorbidity and body mass index (BMI) of 50.0 to 59.9 in adult ([facility]) Iron deficiency 01/31/2019 DX:Iron deficien cy Vitamin [...] Sign Reading Time Taken Comments Blood Pressure 115/68 10/25/2024 2:10 PM EST Pulse 78 10/25/2024 2:10 PM EST Temperature 36.4 ??C (97.6 ??F) 10/25/2024 2:10 PM ES T Respiratory Rate - - Oxygen Saturation - - Inhaled Oxygen Concentration - - Weight 124 kg (274 lb) 10/25/2024 2:10 PM EST Height 177.8 cm (5' 10 ) 10/25/2024 2:10 PM EST Body Mass Index 39.31 10/25/2024 2:10 PM EST Plan of Treatment Health Maintenance Due Date Last Done Comments [...] - 2023-2 5 season) 2024 Influenza Vaccine (Season Ended) 2025 HIB Vaccines Aged Out No longer eligi [...] age to complete this topic Meningococcal B Vaccine Aged Out No l onger eligible based on patient's age to complete [...] Results * Annual BMP Blood Test (02/16/2023) Pathologist [facility] Annual BMP Blood Test Abstracted us Historical Provider HEALTH MAINTENANCE Final Result * (ABNORMAL) Lipid panel (01/26/2019) LDL/HDL Ratio 2 0 - 4 Triglycerides 113 0 - 150 mg/dL Cholesterol 233(A) 0 - 200 mg/dL HDL 112 >=40 mg/dL LDL Cholesterol 99 0 - 100 mg/dL Blood Venous blood specimen / Unknown Historical Provider LAB BLOOD ORDERABLES [facility] Result from Last 3 Months or Most Recently Relevant to Health Maintenance Insurance [facility] [employer] Care Teams Reinforced Concrete Inspector Relationship Specialty Start Date End Date Michael Melvin MD [address] [place] [address] [address] [facility] [place] [address] PCP - General Internal Medicine 11/21/17
[2025-01-19 15:29] VITALS: BP 136/80; PULSE 97; O2SAT 96; BMI 39.3
== END 2025-01-19 16:57 | disposition home or self-care (01) ==
LOC: HO.HMCH 15:26
PROVIDERS: PCP Internal Medicine; Visit Provider Internal Medicine
DX: J45.20 Mild intermittent asthma, uncomplicated (principal); F33.2 Major depressive disorder, recurrent severe without psychotic features; E66.9 Obesity, unspecified; Z68.39 Body mass index [BMI] 39.0-39.9, adult; D50.9 Iron deficiency anemia, unspecified; Z98.84 Bariatric surgery status; Z12.11 Encounter for screening for malignant neoplasm of colon; I10 Essential (primary) hypertension; G47.33 Obstructive sleep apnea (adult) (pediatric)

== ENCOUNTER → 2025-01-19 15:25 | Outpatient (BNVA) | payer OTHER, SELFPAY | PROVIDERS: PCP Internal Medicine; Visit Provider Internal Medicine | DX: F33.2 Major depressive disorder, recurrent severe without psychotic features (principal); E66.9 Obesity, unspecified; J45.20 Mild intermittent asthma, uncomplicated; D50.9 Iron deficiency anemia, unspecified; I10 Essential (primary) hypertension; G47.33 Obstructive sleep apnea (adult) (pediatric); Z98.84 Bariatric surgery status; Z68.39 Body mass index [BMI] 39.0-39.9, adult | CPT/HCPCS: 99212 ==

== ENCOUNTER 2025-05-22 11:53 | Outpatient (REF) | payer OTHER, SELFPAY ==
[2025-05-22 12:57] VITALS: BP 124/84; PULSE 79; RESP 18; O2SAT 97; BMI 38.0
--- OUTSIDE RECORDS SUMMARY | 2025-05-22 14:35 | XMS_ITS | Clinical Summary ---
Author Organization 175 [facility] Address [address] [place] [address] Phone Care Team Providers Care Pressure Steamer Tender Name Role Phone Michael Melvin MD Primary Care Provider [phone] Allergies No known active allergies Medications acetaminophen [...] Active multivit-min/iron /folic acid/K (ADULTS MULTIVITAMIN ORAL) Take by mouth. Active cholecalciferol (VITAMIN D-3) 1,250 mcg (50,000 unit) capsuleIndication s:Vitamin D deficiency, unspecified TAKE 1 CAPSULE BY MOUTH ONE TIME PER WEEK 4 capsule 1 5 Active vitamin A 3,000 mcg (10,000 unit) capsuleIndication s:Vitamin a deficiency, unspecified TAKE 5 CAPSULES BY MOUTH TWICE A DAY 300 capsule 5 07/21/20 25 Active Active Problems Problem Noted Date Diagnosed Date PTSD (post-traumatic stress disorder) 04/30/2020 Overview (06/13/2024): 3912-1266 Osteoarthritis 04/30/2020 Overview (06/13/2024): Knees PURVI (obstructive sleep apnea) 04/30/2020 Hypertension 04/30/2020 Depression 04/30/2020 Asthma 04/30/2020 Anxiety 04/30/2020 Vitamin D deficiency 01/31/2019 Iron deficiency 01/31/2019 Surgical History Surgery Date Site/Laterality Comments OTHER SURGICAL HISTORY 2000 PROCEDURE: [place] LAPS GSTR RSTCV PX W/BYP KATRINA-EN-Y LIMB [...] (BMI) of 50.0 to 59.9 in adult ([facility]/HCC V24, CMS/HCC V28) 01/26/2019 DX:Class 3 severe obesity due to excess calories with serious comorbidity and body mass index (BMI) of 50.0 to 59.9 in adult ([facility]) Iron deficiency 01/31/2019 DX:Iron deficien [...] Sign Reading Time Taken Comments Blood Pressure 133/84 02/08/2025 9:15 AM EDT Pulse 101 02/08/2025 9:15 AM EDT Temperature 36.6 C (97.8 F) 02/08/2025 9:15 AM EDT Respiratory Rate - - Oxygen Saturation - - Inhaled Oxygen Concentration - - Weight 127 kg (280 lb) 02/08/2025 9:15 AM EDT Height 177.8 cm (5' 10 ) 02/08/2025 9:15 AM EDT Body Mass Index 40.18 02/08/2025 9:15 AM EDT Plan of Treatment Upcoming Encounters Date Type Department Care Team (Late st Contact Info) Description 06/27/2025 4:00 PM EDT Office Visit Bariatric Surgery - [address] [place] [address] Sal Sow MD [address] [place] [phone] Health Maintenance Due Date Last Done Comments Breast Cancer Screening 1971 DTaP,Tdap,and Td Vaccines (1 - Tdap) 1990 Hepatitis B Vaccines (1 of 3 - 19+ 3-dose series) 1990 Pneumococcal Vaccine: 50+ Ye ars (1 of 2 - PCV) 1990 Cervical Cancer Screening: P ap Smear 1992 Zoster Vaccines (1 of 2) 2021 Colorectal Cancer Screening: Colonoscopy 08/09/2022 HIV Screening 08/09/2022 Hepatitis C Screening 08/09/2022 Social Influencers of Health Screening 08/09/2022 Cholesterol Screening (Lipid Panel) 01/27/2024 01/26/2019 Hypertension/CHF/CAD Annual BMP Blood Test 02/17/2024 02/16/2023 Depression Screening 08/31/2024 COVID-19 Vaccine (1 - 2023-2 5 season) 2025 Influenza Vaccine (#1) 2025 HIB Vaccines Aged Out No longer [...] * Annual BMP Blood Test (02/16/2023) Pathologist [facility] Annual BMP Blood Test Abstracted Historical Provider [...] Most Recently Relevant to Health Maintenance Insurance [employer] Care Teams Pressure Steamer Tender Relationship Specialty Start Date End Date Michael Melvin MD [address] [place] [address] [address] [facility] [place] [address] PCP - General Internal Medicine 11/21/17
--- OUTSIDE RECORDS SUMMARY | 2025-05-22 14:36 | XMS_ITS | Clinical Summary ---
Author Organization [facility] Address [address] [facility] [address] [place] [phone] Phone Care Team Providers Care Associate Professor Of Literacy Name Role Phone Michael Melvin MD Primary Care Provider [phone] Allergies Active Allergy Reactions Criticality Noted Date Comments Penicillin Hives 01/14/2024 Medications gabapentin (NEURONTIN) 300 MG capsule Take 500 mg by mouth. 12/28/2023 Active lisinopril (PRINIVIL,ZESTR IL) 10 MG tablet Take 10 mg by mouth daily. Active traMADoL (ULTRAM) 50 mg tablet Take 50 mg by mouth every 6 (six) hours as needed for pain (specific location in comments). Active vitamin A,C & Q-lkwqkr-cvkfar ls (OCUVITE) 300 mcg-200 mg-27 mg-2 mg Tab Take 1 tablet by mouth daily. Active A-C-E-zinc ox-selen AA-copper 1,000 unit-60 mg-30 unit Tab Take by mouth. Active cholecalciferol (VITAMIN D3) 10,000 unit tablet Take 10,000 Units by mouth daily. Active multivitamin Liqd Take 5 mL by mouth daily. Active Family History Medical History Relation Comments Cancer Father Liver cancer Father Lung cancer Father Diabetes Mother Stroke Mother Relation Status Comments Father Mother Alive Social History Tobacco Use Types Packs/Day Years Used Date Smoking Tobacco: Never Tobacco Cessation:Counseling Given: Not Answered Alcohol Use Standard Drinks/Week Comments Yes 1 (1 standard drink = 0.6 oz pur e alcohol) Education Answer Date Recorded Are you interested in more education? Not on leeann e 11/18/2023 Are you concerned about learning? Not on file 11/18/2023 No 11/18/2023 No 11/18/2023 Digital Access Answer Date Recorded No 11/18/2023 No 11/18/2023 Reliable internet access at home? Not on file 11/18/2023 Device with a working camera? Not on file Comments Unknown Sex and Gender Information Value Date Recorded Sex Assigned at Not on file Legal Sex Female 3:18 PM EDT Gender Identity Not on file Sexual Orientation Not on file Last Filed Vital Signs Vital Sign Reading Time Taken Comments Blood Pressure 117/74 01/14/2024 1:58 PM EDT Pulse 97 01/14/2024 1:58 PM EDT Temperature - - Respiratory Rate - - Oxygen Saturation - - Inhaled Oxygen Concentration - - Weight 128.6 kg (283 lb 9.6 oz) 01/14/2024 1:58 PM EDT Height 172.7 cm (5' 8 ) 01/14/2024 1:58 PM EDT Body Mass Index 43.12 01/14/2024 1:58 PM EDT Plan of Treatment Health Maintenance Due Date Last Done Comments Adult Td,Tdap Booster 1971 CREATININE LEVEL 1971 LIPID PANEL 1971 POTASSIUM LEVEL 1971 DEPRESSION SCREENING 1983 HEPATITIS C SCREENING 1989 HIV ONE-TIME SCREENING (18-6 5 YEARS) 1989 PAP SMEAR 1992 SMOKING STATUS SCREENING (On ce After 26 Yrs) 1997 SCREENING FOR DIABETES 2006 MAMMOGRAM 2011 COLOGUARD 2016 COLONOSCOPY 2016 COLORECTAL CANCER SCREENING 2016 FIT TEST 2016 FOBT 2016 SIGMOIDOSCOPY 2016 VIRTUAL COLONOSCOPY 2016 PNEUMOCOCCAL VACCINES (50+ y ears) (1 of 1 - PCV) 2021 ZOSTER VACCINES (1 of 2) 2021 INFLUENZA VACCINE (#1) 2025 COVID-19 VACCINE ( - 2023-2 5 season) 2025 HEPATITIS A VACCINES Aged Out No long er eligible based on patient's age to complete this topic HIB VACCINES Aged Out No longer eligi ble based on patient's age to complete this topic MENINGOCOCCAL VACCINES (ACWY) Aged Out No longer eligible based on patient's age to complete this topic MENINGOCOCCAL VACCINES (B) Aged Out N o longer eligible based on patient's age to complete this topic Medical Devices Not on file [facility] Care Teams Associate Professor Of Literacy Relationship Specialty Start Date End Date Michael Melvin MD [address] [place] [phone] PCP - General Internal Medicine 11/17/23 Additional Source Comments The information contained in this document represents components of the legal health record. It is not the complete legal health record.[facility]
== END 2025-05-22 11:54 | disposition home or self-care (01) ==
LOC: HO.MS 11:53
PROVIDERS: PCP Internal Medicine; Visit Provider Ophthalmology
PROC: (CPT 67800; principal; 2025-05-22 15:00)
DX: H00.14 Chalazion left upper eyelid (principal)
CPT/HCPCS: 67800; J2004

== ENCOUNTER 2025-07-11 15:29 | Outpatient (REF) | payer OTHER, SELFPAY ==
--- OUTSIDE RECORDS SUMMARY | 2025-07-11 17:28 | XMS_ITS | Clinical Summary ---
Author Organization [address] [facility] Address [address] [place] [address] Phone Care Team Providers Care Screwmaker Automatic Name Role Phone Michael Melvin MD Primary Care Provider [phone] Allergies No known active allergies Medications acetaminophen [...] PTSD (post-traumatic stress disorder) 04/30/2020 Overview (06/13/2024): 5755-7853 Osteoarthritis 04/30/2020 Overview (06/13/2024): Knees PURVI (obstructive sleep apnea) 04/30/2020 Hypertension 04/30/2020 Depression 04/30/2020 Asthma 04/30/2020 Anxiety 04/30/2020 Vitamin D deficiency 01/31/2019 Iron deficiency 01/31/2019 Encounters Date Type Department Care Team Description 07/05/2025 10:15 AM EST Office Visit Bariatric Surgery - [address] [place] [address] Sal Sow MD Class 3 severe obesity due to excess calories with body mass index (BMI) of 40.0 to 44.9 in adult, unspecified whether serious comorbidity present (CMS/HCC V24, CMS/HCC V28) (Primary Dx) from Last 3 Months Surgical History Surgery Date Site/Laterality Comments OTHER SURGICAL HISTORY 2000 PROCEDURE: TN LAPS GSTR RSTCV PX W/BYP KATRINA-EN-Y LIMB [...] (BMI) of 50.0 to 59.9 in adult (HCC) Iron deficiency 01/31/2019 DX:Iron deficien cy Vitamin [...] Sign Reading Time Taken Comments Blood Pressure 147/84 07/05/2025 10:19 AM EST Pulse 92 07/05/2025 10:19 AM EST Temperature 36.6 C (97.8 F) 07/05/2025 10:19 AM EST Respiratory Rate - - Oxygen Saturation - - Inhaled Oxygen Concentration - - Weight 128 kg (283 lb) 07/05/2025 10:19 AM EST Height 177.8 cm (5' 10 ) 07/05/2025 10:19 AM EST Body Mass Index 40.61 07/05/2025 10:19 AM EST Plan of Treatment Upcoming Encounters Date Type Department Care Team (Late st Contact Info) Description 01/02/2026 3:30 PM EDT Office Visit Bariatric Surgery - [address] [place] [address] Sal Sow MD [address] [place] [phone] Health Maintenance Due Date Last Done Comments Breast Cancer Screening 1971 Colorectal Cancer Screening: Colonoscopy 1971 DTaP,Tdap,and Td Vaccines (1 - Tdap) 1990 Hepatitis B Vaccines (1 of 3 - 19+ 3-dose series) 1990 Pneumococcal Vaccine: 50+ Ye ars (1 of 2 - PCV) 1990 Cervical Cancer Screening: P ap Smear 1992 RSV Immunization Adult Patie nts (1 - Risk 50-74 years 1-dose series) 2021 Zoster Vaccines (1 of 2) 2021 HIV Screening 08/09/2022 Hepatitis C Screening 08/09/2022 Social Influencers of Health Screening 08/09/2022 Cholesterol Screening (Lipid Panel) 01/27/2024 01/26/2019 Hypertension/CHF/CAD Annual BMP Blood Test 02/17/2024 02/16/2023 Depression Screening 08/31/2024 COVID-19 Vaccine (1 - 2024-2 6 season) 2025 Influenza Vaccine (#1) 2025 HIB [...] * Annual BMP Blood Test (02/16/2023) Pathologist [facility] Annual BMP Blood Test Abstracted us Historical Provider HEALTH MAINTENANCE Final Result * (ABNORMAL) Lipid panel (01/26/2019) LDL/HDL Ratio 2 0 - 4 Triglycerides 113 0 - 150 mg/dL Cholesterol 233(A) 0 - 200 mg/dL HDL 112 >=40 mg/dL LDL Cholesterol 99 0 - 100 mg/dL Blood Venous blood specimen / Unknown us Historical Provider LAB BLOOD ORDERABLES Mima l Result from Last 3 Months or Most Recently Relevant to Health Maintenance Insurance [facility] [email or web address] [address] Care Teams Screwmaker Automatic Relationship Specialty Start Date End Date Michael Melvin MD [address] [place] [address] [address] [facility] [place], [place] [id number] PCP - General Internal Medicine 11/21/17
--- OUTSIDE RECORDS SUMMARY | 2025-07-11 17:28 | XMS_ITS | Clinical Summary ---
Author Organization [facility] Address [address] [facility] [address] [place] [address] Phone Care Team Providers Care Right Of Way Manager Name Role Phone Michael Melvin MD Primary Care Provider [phone] Allergies Active Allergy Reactions Criticality Noted Date Comments Penicillin Hives 01/14/2024 Medications gabapentin (NEURONTIN) 300 MG capsule Take 500 mg by mouth. 12/28/2023 Active lisinopril (PRINIVIL,ZESTR IL) 10 MG tablet Take 10 mg by mouth daily. Active traMADoL (ULTRAM) 50 mg tablet Take 50 mg by mouth every 6 (six) hours as needed for pain (specific location in comments). Active vitamin A,C & W-ylqpck-uydoci ls (OCUVITE) 300 mcg-200 mg-27 mg-2 mg [...] ears) (1 of 1 - PCV) 2021 RSV VACCINE (1 - Risk 50-74 years 1-dose series) 2021 ZOSTER VACCINES (1 of 2) 2021 INFLUENZA VACCINE (#1) 2025 COVID-19 VACCINE (1 - 2024-2 6 season) 2025 HEPATITIS A VACCINES Aged Out No long er eligible based on patient's age to complete this topic HIB VACCINES Aged Out No longer eligi ble based on patient's age to complete this topic IPV VACCINES Aged Out No longer eligi ble based on patient's age to complete this topic MENINGOCOCCAL VACCINES (ACWY) Aged Out No longer eligible based on patient's age to complete this topic MENINGOCOCCAL VACCINES (B) Aged Out N o longer eligible based on patient's age to complete this topic Medical Devices Not on file Insurance [facility] Care Teams Right Of Way Manager Relationship Specialty Start Date End Date Michael Melvin MD [address] [place] [phone] PCP - General Internal Medicine 11/17/23 Additional Source Comments The information contained in this document represents components of the legal health record. It is not the complete legal health record.[facility]
[2025-07-12 03:28] LABS: CT PCR NOT DETECTED (Not Detect.); NG PCR NOT DETECTED (Not Detect.)
== END 2025-07-11 15:30 | disposition home or self-care (01) ==
LOC: HO.LNP 15:29
PROVIDERS: PCP Internal Medicine; Visit Provider Obstetrics & Gynecology
DX: Z01.419 Encounter for gynecological examination (general) (routine) without abnormal findings (principal); R10.20 Pelvic and perineal pain unspecified side; Z12.31 Encounter for screening mammogram for malignant neoplasm of breast; Z12.11 Encounter for screening for malignant neoplasm of colon; Z32.02 Encounter for pregnancy test, result negative; Z20.2 Contact with and (suspected) exposure to infections with a predominantly sexual mode of transmission
CPT/HCPCS: 81002; 81025; 87491; 87591; 87626; 88175; 99212; 99396

== ENCOUNTER 2025-07-11 15:29 | Outpatient (AMB) | payer OTHER, SELFPAY ==
--- NOTE | 2025-07-11 15:58 | MHC.OFFVIS ---
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 Intake Note: annual Wire Stockkeeper Required: No Information Interpreted: non-clinical & clinical Coordinate Measuring Machine Technician: Coordinate Measuring Machine Technician Present (wilmer) Accompanied by: Self / Same As Patient Allergies piperacillin Allergy (Unknown, Verified 07/11/25 16:03) hives phentermine Adverse Reaction (Intermediate, Unverified 07/11/25 16:03) Palpitations Medication List - Last Reconciled 07/11/25 by Aida Kramer, SHABNAM albuterol sulfate 90 mcg/actuation (Ventolin HFA) 2 puffs inhalation Q6H PRN albuterol sulfate 2.5 mg (3 mL) inhalation Q4-6H PRN amlodipine 5 mg PO DAILY betamethasone dipropionate 0.05% 1 appl topical DAILY PRN budesonide-formoterol 160-4.5 mcg/actuation (Symbicort) 2 puffs inhalation BID 30 days cholecalciferol (vitamin D3) 2,000 units PO .QD clotrimazole 1% 1 appl topical BID 4 weeks comp.stocking,thigh,long,x-lrg As directed 20-30 mm HG cyanocobalamin (vitamin B-12) 1,000 mcg PO DAILY fluoxetine 40 mg PO DAILY gabapentin 300 mg PO BEDTIME 90 days lidocaine 5% 1 patch topical DAILY lisinopril-hydrochlorothiazide 20-12.5 mg 1 tab PO BID 90 days multivitamin 1 tab PO DAILY nebulizers (Aeroneb Go Nebulizer) As directed thiamine mononitrate (vit B1) 100 mg PO DAILY 90 days tirzepatide (Mounjaro) 2.5 mg (0.5 mL) subcut QWEEK tramadol 50 mg PO TID 30 days vitamin A caps PO Do you need a note to return to daycare/school/sports/work: No HPI Comments Details: Presenting for annual exam. Complaining of lower pelvic pain associated GI or symptoms no vaginal discharge or bleeding, no nausea or vomiting Last Pap/HPV was negative in 09/20 Last Mammogram was BI-RADS 2 in 03/23 Last Colonoscopy was attempted is 04/21, the prep was not adequate, the patient is scheduled with GI in the coming few weeks for a consult regarding screening colonoscopy [facility] Medical History (Updated 07/11/25 @ 16:14 by Rigoberto Redmond MD) Sty, external Obesity Osteoarthritis of right knee Osteoarthritis of left knee PTSD (post-traumatic stress disorder) Anxiety Asthma exacerbation Injury, foot Anemia Peripheral vascular disease Vitamin D deficiency Benign essential hypertension Obstructive sleep apnea Osteoarthritis of knees, bilateral Surgical History History of esophagogastroduodenoscopy (EGD) Hx of flexible sigmoidoscopy History of section History of breast lift H/O gastric bypass History of cholecystectomy Family History Father Lung cancer Liver cancer Hepatitis C Mother CVD (cerebrovascular disease) Stroke Diabetes Brother PTSD (post-traumatic stress disorder) Sister Hx of sleep apnea Asthma Son No problems noted. 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 Sexual orientation: Straight/Heterosexual Gender identity: Female Cognitive needs: No Hearing needs: No Vision needs: No Female Reproductive History Menstrual Age of Menarche: 16 Menopause type: natural Total pregnancies: 2 Number of Living Children: 2 Date of last pap smear: 09/26/20 Date of Mammogram: 03/02/24 Review of Systems Const All systems reviewed & are unremarkable except as noted in HPI and below Card Reports as per HPI Resp Reports as per HPI GI Reports as per HPI and Reports no additional complaints Reports as per HPI Physical Exam Const General: cooperative, healthy appearing and comfortable Chest Chest palpation & inspection: normal inspection of the chest and normal palpation of entire chest wall Breast/axilla inspection: normal inspection of the breasts and normal inspection of the axillae Breast/axilla palpation: normal palpation of the breasts, normal palpation of the axillae and no axillary lymphadenopathy Resp Effort & Inspection: normal respiratory effort Auscultation: clear to auscultation bilaterally Percussion: percussion normal Cardio Palpation: normal PMI Rate: regular rate Rhythm: regular rhythm Heart sounds: no murmurs and no rubs Peripheral pulses: Peripheral pulses 2+ throughout GI Inspection: Yes normal to inspection Palpation (GI): Soft to palpation, nontender, no guarding, not rigid and No hepatosplenomegaly present Percussion: Yes normal to percussion Auscultation: normal bowel sounds Rectal Exam - Female: deferred General: Yes bladder normal to palpation External Female Exam: No lesion Speculum Exam - Vagina: normal appearance of the vagina, normal palpation, normal vaginal discharge and not erythematous Speculum Exam - Cervix: normal appearance of the cervix and normal palpation Bimanual exam- vagina & uterus: normal bimanual exam, normal palpation, uterine size normal, bladder normal to palpation, consistency normal and normal palpation Bimanual Exam- Adnexa, other: normal adnexae, no masses and no tenderness Assessment & Plan Assessment & Plan (1) Well woman exam: Code(s): Z01.419 - Encounter for gynecological examination (general) (routine) without abnormal findings Category: Medical Plan: Co testing done. Counseled the patient about the recommended dietary allowance of 1200 mg of Calcium & 600 IU of vitamin D. Mammogram ordered. The patient is scheduled with GI for screening colonoscopy . The patient was instructed to perform monthly self-breast exams and schedule annual exam in a year. All questions answered and the patient verbalized understanding. (2) Pelvic pain: Code(s): R10.2 - Pelvic and perineal pain Category: Medical Plan: Urine dip and test done in the office were both negative. GC and chlamydia taken and pelvic ultrasound ordered. Discussed with the patient the differential diagnosis of pelvic pain including but not limited to adnexal, uterine masses, pelvic infections (PID), GI the (Irritable bowel syndrome, diverticulitis, others), musculoskeletal, myofascial pain abdominal wall , adhesions, endometriosis, psychological and others causes. Will check results and treat accordingly. All questions answered, the patient verbalized understanding. Instructed the patient to schedule an ultrasound and a follow-up appointment in 2 weeks. All questions answered, the patient verbalized understanding and agreed with the plan. Orders: Orders MM tomosynthesis screening BI Today Z12.31 - Encounter for screening mammogram for malignant neoplasm of breast US pelvic and transvaginal Today R10.2 - Pelvic and perineal pain Referrals Gastroenterology Referral Z12.11 - Encounter for screening for malignant neoplasm of colon Coding Level of Care Code Est Pt Level 3 (53608) Est Pt Prev Care 40-64y(57076) Diagnoses Well woman exam Z01.419 Pelvic pain R10.2
[2025-07-11 16:06] VITALS: BP 124/78; BMI 39.7
== END 2025-07-12 14:44 | disposition home or self-care (01) ==
LOC: HO.HWS 15:30
PROVIDERS: PCP Internal Medicine; Visit Provider Obstetrics & Gynecology
DX: Z01.419 Encounter for gynecological examination (general) (routine) without abnormal findings (principal); R10.20 Pelvic and perineal pain unspecified side; Z32.02 Encounter for pregnancy test, result negative
CPT/HCPCS: 99213; 99396; 99459

== ENCOUNTER 2025-08-16 11:59 | Outpatient (AMB) | payer OTHER, SELFPAY ==
--- NOTE | 2025-08-16 12:06 | MHC.OFFVIS ---
Vital Signs 08/16/25 12:15 Height 5 ft 10 in Weight 272 lb BMI 39.0 BP 168/88 H Blood Pressure Location Rt brachial Position Sitting Pulse 86 Pulse Source Pulse Oximeter Pulse Oximetry (%) 96 Oxygen Delivery Method Room Air Intake Visit Reasons: Discuss colonoscopy Intake Note: Est pt prior to second colo. PHILIP 2022, procedure never done. [place] last in 2021. CC; C/O loose stools intermittently. Pt denies any additional sx or concerns. She believes the loose stools could be related to the weight loss surgery she had in the past? Market Research Worker Required: No Accompanied by: Self / Same As Patient Allergies piperacillin Allergy (Unknown, Verified 08/16/25 12:15) hives phentermine Adverse Reaction (Intermediate, Unverified 08/16/25 12:15) Palpitations HPI HPI Discuss colonoscopy: Details: LAST VISIT Colon cancer screening Patient had suboptimal prep last colonoscopy. Patient was confused about much prep she should be drinking. Patient only had 2 glasses. Long discussion about good bowel prep. Patient will do split prep with Dulcolax tablets. However patient does not move her bowels completely and will start taking Dulcolax tablets 1-2 tablets every evening. Patient denies any issues with anesthesia in the past. History of sleep apnea unable to use a CPAP. Denies any cardiac or respiratory symptoms. Patient is taking Symbicort for asthma. Patient's asthma is under control. Patient is not on any anticoagulation medication. Constipation Patient will start taking Dulcolax every night. Patient will increase fluid intake and activity to promote better bowel motility. I will see her after the procedure, sooner on as needed basis. Patient is agreeable to this plan and verbalizes understanding of instructions. She was given the opportunity to ask questions and all questions answered. ? Thank you for allowing me to participate in her care Plan New bisacodyl (Dulcolax (bisacodyl)) 10 mg (2 x 5 mg) PO BEDTIME 180 tabs 4RF polyethylene glycol 3350 (Miralax) As directed by gastroenterology department at [facility] 238 grams PO ONCE 238 grams 0RF Z12.11 TODAY'S VISIT Patient is here today to discuss colonoscopy again last seen in 2022 and patient was supposed to go for colonoscopy. Patient reports that she had to cancel colonoscopy as she had to go to work and then just never got to it to schedule. Patient denies any change since last visit. Went over everything with patient and no changes. Patient denies any cardiac or respiratory symptoms. Still unable to use CPAP. Only uses rescue inhaler as needed. Patient denies any melena, hematochezia, unintentional weight loss or ribbon like stools. Patient reports occasional postprandial diarrhea depending on what she eats. Patient denies any dyspepsia, dysphagia or odynophagia [facility] Medical History Sty, external Obesity Osteoarthritis of right knee Osteoarthritis of left knee PTSD (post-traumatic stress disorder) Anxiety Asthma exacerbation Injury, foot Anemia Peripheral vascular disease Vitamin D deficiency Benign essential hypertension Obstructive sleep apnea Osteoarthritis of knees, bilateral Surgical History History of esophagogastroduodenoscopy (EGD) Hx of flexible sigmoidoscopy History of section History of breast lift H/O gastric bypass History of cholecystectomy Family History Father Lung cancer Liver cancer Hepatitis C Mother CVD (cerebrovascular disease) Stroke Diabetes Brother PTSD (post-traumatic stress disorder) Sister Hx of sleep apnea Asthma Son No problems noted. 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 Sexual orientation: Straight/Heterosexual Gender identity: Female Cognitive needs: No Hearing needs: No Vision needs: No Female Reproductive History Menstrual Age of Menarche: 16 Review of Systems Const Denies weight gain and Denies weight loss ENT Reports no additional complaints, Denies dysphagia and Denies odynophagia Card Reports no additional complaints Resp Reports no additional complaints GI Denies abdominal pain, Denies belching, Denies melena, Denies bloating, Reports constipation, Denies dysphagia, Denies excessive flatus, Denies dyspepsia, Denies heartburn, Denies diarrhea, Reports loose stools, Denies nausea, Denies odynophagia and Denies vomiting Reports no additional complaints Musc Reports no additional complaints Neuro Reports no additional complaints Psych Reports no additional complaints Endo Reports no additional complaints Physical Exam Vital Signs: Last Vital Signs Pulse 86 08/16/25 12:15 BP 168/88 H 08/16/25 12:15 Pulse Ox 96 08/16/25 12:15 Oxygen Delivery Method Room Air 08/16/25 12:15 BMI result Body Mass Index 39.0 Const General: healthy appearing and no acute distress Nutritional Appearance: obese Orientation/consciousness: patient oriented x3 Resp Effort & Inspection: normal respiratory effort, able to speak in complete sentences, no tracheal deviation and symmetric chest movement Auscultation: clear to auscultation bilaterally Cardio Rate: regular rate GI Inspection: Yes normal to inspection, No distended and Yes obesity Palpation (GI): Soft to palpation, not firm, nontender and No hepatosplenomegaly present Auscultation: normal bowel sounds General: Yes no CVA tenderness Back/Spine/Pelvis Back: no CVA tenderness Skin General skin exam: elasticity normal, turgor normal and dry skin Neuro General: patient oriented x3 Psych Appearance: grossly normal Mental Status: mental status grossly normal Assessment & Plan Assessment & Plan (1) Colon cancer screening: Code(s): Z12.11 - Encounter for screening for malignant neoplasm of colon Category: Medical (2) Postprandial diarrhea: Code(s): K52.9 - Noninfective gastroenteritis and colitis, unspecified Plan Patient denies any cardiac or respiratory symptoms. Patient has occasional postprandial diarrhea. To ensure that patient was a good prep will have her take Dulcolax few days before procedure. What to expect before during and after procedure discussed with patient. Stressed importance of good bowel prep and clear liquid diet day before procedure. I will see patient after the procedure, sooner on as needed basis. Patient is agreeable to this plan and verbalizes understanding of instructions. She was given the opportunity to ask questions and all questions answered. Thank you for allowing me to participate in her care Orders: Referrals GI Procedure Notification Z12.11 - Encounter for screening for malignant neoplasm of colon Medications: New polyethylene glycol 3350 (Miralax) As directed by gastroenterology department at [facility] 238 grams PO ONCE 238 grams 0RF Z12.11 - Encounter for screening for malignant neoplasm of colon bisacodyl (Dulcolax (bisacodyl)) Start taking 2 tablet every night 7 days before the procedure and 1 day before procedure take 4 tablets at noon time followed by MiraLax prep 10 mg (2 x 5 mg) PO BEDTIME 16 tabs 0RF Z12.11 - Encounter for screening for malignant neoplasm of colon Coding Level of Care Code Est Pt Level 3 (58283) Diagnoses Colon cancer screening Z12.11 Postprandial diarrhea K52.9 Time Spent (min) 30 Comment 20 minutes spent with patient and additional 10 minutes spent reviewing her records
[2025-08-16 12:15] VITALS: BP 168/88; PULSE 86; O2SAT 96; BMI 39.0
--- OUTSIDE RECORDS SUMMARY | 2025-08-16 15:53 | XMS_ITS | Clinical Summary ---
Author Organization [address] [facility] Address [address] [place] [address] Phone Care Team Providers Care Service Advisor Name Role Phone Michael Melvin MD Primary Care Provider [phone] Allergies No known active allergies Medications acetaminophen [...] DAY 300 capsule 5 07/21/20 25 Active Problems Problem Noted Date Diagnosed Date PTSD (post-traumatic stress disorder) 04/30/2020 Overview (06/13/2024): [id number] Osteoarthritis 04/30/2020 Overview (06/13/2024): Knees PURVI (obstructive sleep apnea) 04/30/2020 Hypertension 04/30/2020 Depression 04/30/2020 Asthma 04/30/2020 Anxiety 04/30/2020 Vitamin D deficiency 01/31/2019 Iron deficiency 01/31/2019 Encounters Date Type Department Care Team Description 07/05/2025 10:15 AM EST Office Visit Bariatric Surgery - [address] [place] [address] Sal Sow MD Class 3 severe obesity due to excess calories with body mass index (BMI) of 40.0 to 44.9 in adult, unspecified whether serious comorbidity present (CMS/HCC V24, CMS/HCC V28) (Primary Dx) from Last 3 Months Surgical History Surgery Date Site/Laterality Comments OTHER SURGICAL HISTORY 2000 PROCEDURE: MT LAPS GSTR RSTCV PX W/BYP KATRINA-EN-Y LIMB [...] PM EDT Office Visit Bariatric Surgery - [address] [place] [address] Sal Sow MD [address] [place] [phone] Health Maintenance Due Date Last Done [...] * Annual BMP Blood Test (02/16/2023) Pathologist [facility] Annual BMP Blood Test Abstracted us Historical [...] Most Recently Relevant to Health Maintenance Insurance [facility] [place] [address] Care Teams Service Advisor Relationship Specialty Start Date End Date Michael Melvin MD [address] [place] [address] [address] [facility] [place] [address] PCP - General Internal Medicine 11/21/17
--- OUTSIDE RECORDS SUMMARY | 2025-08-16 15:53 | XMS_ITS | Clinical Summary ---
Author Organization [facility] Address [address] [facility] [address] [place] [phone] Phone Care Team Providers Care Truck Sales Representative Name Role Phone Michael Melvin MD Primary Care Provider [phone] Allergies Active Allergy Reactions Criticality Noted Date Comments Penicillin Hives 01/14/2024 Medications gabapentin (NEURONTIN) 300 MG capsule Take 500 mg by mouth. 12/28/2023 Active lisinopril (PRINIVIL,ZESTR IL) 10 MG tablet Take 10 mg by mouth daily. Active traMADoL (ULTRAM) 50 mg tablet Take 50 mg by mouth every 6 (six) hours as needed for pain (specific location in comments). Active vitamin A,C & K-bdczep-mcomvq ls (OCUVITE) 300 mcg-200 mg-27 mg-2 mg [...] topic Medical Devices Not on file Insurance [facility] Care Teams Truck Sales Representative Relationship Specialty Start Date End Date Michael Melvin MD [address] [place] [id number] PCP - General Internal Medicine 11/17/23 Additional Source Comments The information contained in this document represents components of the legal health record. It is not the complete legal health record.[facility]
== END 2025-08-16 12:27 | disposition home or self-care (01) ==
LOC: HO.HGI 12:00
PROVIDERS: PCP Internal Medicine; Visit Provider Nurse Practitioner Family
DX: Z01.818 Encounter for other preprocedural examination (principal); Z12.11 Encounter for screening for malignant neoplasm of colon; K52.9 Noninfective gastroenteritis and colitis, unspecified
CPT/HCPCS: 99213

== ENCOUNTER → 2025-08-16 11:59 | Outpatient (BNVA) | payer OTHER, SELFPAY | PROVIDERS: PCP Internal Medicine; Visit Provider Nurse Practitioner Family | DX: Z12.11 Encounter for screening for malignant neoplasm of colon (principal); K52.9 Noninfective gastroenteritis and colitis, unspecified | CPT/HCPCS: 99212 ==

== ENCOUNTER 2025-08-22 16:04 | Outpatient (AMB) | payer OTHER, SELFPAY ==
--- NOTE | 2025-08-22 16:21 | A.OFFPC_ITS ---
Vital Signs 08/22/25 16:22 Height 5 ft 10 in Weight 282 lb BMI 40.5 BP 140/74 H Blood Pressure Location Lt brachial Position Sitting Respiration 18 Pulse Source Pulse Oximeter Temp Source Temporal Artery Scan Oxygen Delivery Method Room Air Intake Visit Reasons: follow up Stringing Machine Tender Required: No Allergies piperacillin Allergy (Unknown, Verified 08/22/25 16:25) hives phentermine Adverse Reaction (Intermediate, Verified 08/22/25 16:25) Palpitations Tobacco use date assessed: 08/22/25 Dental Screening Dental Screen Date: 08/22/25 Did you have a dental visit in the last 12 months?: Yes Did you have a dental problem in the last 6 months where you did not have access to dental care?: No Was dental information given to patient?: Patient has dentist HPI HPI Comments History of Present Illness Details History of Present Illness The patient is a 55-year-old female with a history of morbid obesity presenting for a follow-up visit. Her history includes a gastric bypass in 2019, which was a conversion from a 2001 procedure. She follows with bariatrics and was recently prescribed Tirzepatide, which is pending insurance approval. Her medical history is significant for obstructive sleep apnea, for which she cannot tolerate CPAP, hypertension, peripheral vascular disease, depression, and asthma. She reports a history of alcohol abuse and currently drinks 6-8 beers on weekends. She has a recurrent chalazion since March, for which she has seen an vp communications and tried ointments and massage without resolution. She complains of bilateral knee osteoarthritis, for which she is requesting physical therapy. She reports hand symptoms including her fingers getting stuck after writing, described as trigger finger, which is worse in the right hand. She also experiences numbness and tingling in both hands, more so on the right, and her fingers turn white in the cold, consistent with Raynaud's phenomenon. For health maintenance, her mammogram is scheduled for August, and she is pending scheduling for a colonoscopy after seeing a surveillance system monitor. Her last blood work was in 2020. Health Maintenance The patient will receive a flu shot and tetanus shot today. Orders for blood work and a chest X-ray were placed. She was reminded to follow up with [place] heduling her colonoscopy and that her mammogram is scheduled for August. Social History - Alcohol Use: Reports drinking 6 to 8 b eers on the weekends. - Tobacco Use: Denies smoking but report s secondhand smoke exposure from her father. - Weight Management: Has a history of ga stric bypass surgery. - Exercise: She is requesting physical t herapy for her knees and is interested in a weight management exercise program. Results [facility] Medical History Sty, external Obesity Osteoarthritis of right knee Osteoarthritis of left knee PTSD (post-traumatic stress disorder) Anxiety Asthma exacerbation Injury, foot Anemia Peripheral vascular disease Vitamin D deficiency Benign essential hypertension Obstructive sleep apnea Osteoarthritis of knees, bilateral Surgical History History of esophagogastroduodenoscopy (EGD) Hx of flexible sigmoidoscopy History of section History of breast lift H/O gastric bypass History of cholecystectomy Family History Father Lung cancer Liver cancer Hepatitis C Mother CVD (cerebrovascular disease) Stroke Diabetes Brother PTSD (post-traumatic stress disorder) Sister Hx of sleep apnea Asthma Son No problems noted. 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 Sexual orientation: Straight/Heterosexual Gender identity: Female Cognitive needs: No Hearing needs: No Vision needs: No Female Reproductive History Menstrual Age of Menarche: 16 Questionnaire Thrive Questionnaire Date Thrive assessed: 01/12/25 I am a: Patient What is your living situation today?: I have a steady place to live Within the past 12 months, did the food you bought not last and you didn't have the money to get more?: Never true Within the past 12 months, did you worry whether your food would run out before you got money to buy more?: Sometimes True Do you have trouble paying for medicines?: I choose not to answer this question Do you have trouble getting transportation to medical appointments?: I choose not to answer this question Do you have trouble paying your heating and electricity bill?: I choose not to answer this question Do you have trouble taking care of your child, family member or friend?: No Do you have trouble with day-to-day activities such as bathing, preparing meals, shopping, managing finances, etc.?: No Are you currently unemployed and looking for a job?: No Are you interested in more education?: No Currently or been in a relationship where the following occur: No concerns reported THRIVE Score: 1 DEBRA-7 AMB Questionnaire DEBRA-7 Date DEBRA - 7 assessed: 01/19/25 Source: Developed by Drs. Casimiro Wagoner, Garima Marshall, Shayne Roa and colleagues, with an educational kunal from [employer]. Review of Systems Narrative Review of Systems - Constitutional: Reports a 10-pound weight gain. - Eyes: Reports a recurrent lesion on her eyelid since March and loss of eyelashes on that lid. - Respiratory: History of asthma. - Musculoskeletal: Reports bilateral knee pain and fingers getting stuck after writing, primarily in the right hand. - Neurological: Reports numbness and tingling in both hands, worse on the right. - Skin/Vascular: Reports fingers turning white when cold. - Psychiatric: History of depression. Physical exam (Primary Care) Vital Signs: Last Vital Signs Resp 18 08/22/25 16:22 BP 140/74 H 08/22/25 16:22 Oxygen Delivery Method Room Air 08/22/25 16:22 BMI result Body Mass Index 40.5 Tobacco/Smoking Status: Tobacco use Status Tobacco use date assessed 08/22/25 08/22/25 16:26 Patient Tobacco Use Status Never used Tobacco 08/22/25 16:26 e-Cigarette/Vaping Use Never Used 08/22/25 16:26 Thrive Assessment: Date of Thrive Assessment Date Thrive assessed 01/12/25 08/22/25 16:26 Currently or been in a relationship where the following occur: No concerns reported Narrative Physical Exam Const General: alert; No acute distress Eyes Conjunctivae: conjunctivae normal Resp Auscultation: clear to auscultation bilaterally Cardio Rate: regular rate Rhythm: regular rhythm GI Inspection: Yes normal to inspection Extrem General: Yes normal to inspection and No edema Office Procedures Flu Questionnaire Does the patient have a severe egg allergy?: No Does the patient have severe life threatening allergies?: No Does the patient have a fever or illness today?: No Has the patient ever had Guillain-[place] Syndrome?: No Has the patient ever had any past reaction to a flu shot?: No Immunizations Fluarix [id number] (PF) 45 mcg (15 mcg x 3)/0.5 mL IM syringe Performing Provider: Michael Melvin MD [facility] Administered by: CAMMY Peter on 08/22/25 17:06 Dose Route Admin Location Dispensed Lot Number Expiration Date [facility] Residential Monitor 0.5 mL IM Left Deltoid 0.5 mL [id number] 02/27/26 [id number] [employer] VIS Given Date VIS Provided VIS Publication Date 08/22/25 Single Vaccine 24 Eligibility Eligibility Date Funding Source Not [facility] Eligible 08/22/25 Private Coding Level of Care Code Est Pt Level 4 (43148) Add On Problem Visit Only Diagnoses Benign essential hypertension I10 Peripheral vascular disease I73.9 H/O gastric bypass Z98.84 Severe episode of recurrent major depressive disorder, without psychotic features F33.2 Psychotic features: without psychotic features Morbid obesity due to excess calories E66.01 Colon cancer screening Z12.11 Obstructive sleep apnea G47.33 Mild intermittent asthma without complication J45.20 Asthma complication type: uncomplicated Asthma persistence: intermittent Asthma severity: mild Primary osteoarthritis of both knees M17.0 Osteoarthritis type: primary Chalazion left eye, unspecified eyelid H00.16 Raynaud disease I73.00 Bilateral hand numbness R20.0 Hand pain, right M79.641 Alcohol abuse F10.10 Assessment & Plan Assessment & Plan (1) Benign essential hypertension: Comment: Echo December 2017 EF 60-65 Code(s): I10 - Essential (primary) hypertension Category: Medical Plan: Continue with blood pressure medication. Decrease salt intake and exercise on amlodipine 5 mg once a day lisinopril hydrochlorothiazide 20/12.5 mg twice a day (2) Peripheral vascular disease: Code(s): I73.9 - Peripheral vascular disease, unspecified Category: Medical Plan: When sitting down elevate the legs, exercise, and support stockings (3) H/O gastric bypass: Comment: 2000- GBP 2019 -conversion of gastric bypass to biliopancreatic limb bypass Dr. Sow 2019 Code(s): Z98.84 - Bariatric surgery status Category: Surgical Plan: Patient follows up with bariatric and has started on tirzepatide (4) MDD (major depressive disorder), recurrent episode, severe: Comment: psychiatry [facility], counselling q week, [facility] Code(s): F33.2 - Major depressive disorder, recurrent severe without psychotic features Category: Medical Qualifiers: Psychotic features: without psychotic features Qualified Code(s): F33.2 - Major depressive disorder, recurrent severe without psychotic features Plan: continue with counseling and therapy (5) Morbid obesity due to excess calories: Code(s): E66.01 - Morbid (severe) obesity due to excess calories Category: Medical Plan: Diet and exercise and has been started on tirzepatide (6) Colon cancer screening: Code(s): Z12.11 - Encounter for screening for malignant neoplasm of colon Category: Medical Plan: Patient has met with Gastroenterology and will be scheduled for colonoscopy (7) Obstructive sleep apnea: Comment: cannot tolerate CPAP 11/2020 Code(s): G47.33 - Obstructive sleep apnea (adult) (pediatric) Category: Medical Plan: Discussed about treatment of obstructive sleep apnea and has been started on tirzepatide (8) Asthma: Code(s): J45.909 - Unspecified asthma, uncomplicated Category: Medical Qualifiers: Asthma complication type: uncomplicated Asthma persistence: intermittent Asthma severity: mild Qualified Code(s): J45.20 - Mild intermittent asthma, uncomplicated Plan: Patient is on Symbicort and albuterol (9) Osteoarthritis of knees, bilateral: Code(s): M17.0 - Bilateral primary osteoarthritis of knee Category: Medical Qualifiers: Osteoarthritis type: primary Qualified Code(s): M17.0 - Bilateral primary osteoarthritis of knee (10) Chalazion left eye, unspecified eyelid: Code(s): H00.16 - Chalazion left eye, unspecified eyelid Category: Medical Plan: seeing Dr. Ashton (11) Raynaud disease: Code(s): I73.00 - Raynaud's syndrome without gangrene Category: Medical Plan: keep warm (12) Bilateral hand numbness: Code(s): R20.0 - Anesthesia of skin Category: Medical (13) Hand pain, right: Code(s): M79.641 - Pain in right hand Category: Medical (14) Alcohol abuse: Code(s): F10.10 - Alcohol abuse, uncomplicated Category: Social Hx Plan Plan Patient was informed and verbally consented to the use of an ambient scribe for clinic note documentation during this visit. 1. Morbid Obesity The patient follows with bariatrics and has been prescribed Tirzepatide, which is awaiting prior authorization. She has gained 10 pounds and was counseled on diet and exercise. A referral will be placed for a weight management exercise program. 2. Essential Hypertension Continue current medication regimen of amlodipine 5 mg once a day and lisinopril-hydrochlorothiazide 20/12.5 mg twice a day. The patient was counseled that for individuals with hypertension, zero alcohol consumption is recommended. 3. Alcohol Abuse The patient reports drinking 6-8 beers on weekends. She was extensively counseled on the risks of alcohol consumption, including liver failure and memory problems, and was strongly advised to stop. 4. Asthma, Unspecified The patient is on Symbicort and albuterol. She was advised to use Symbicort daily during the winter and to rinse her mouth after use. A chest X-ray was ordered for screening due to her father's history of lung cancer. 5. Bilateral Primary Osteoarthritis Of Knee The patient reports her knee pain is severe. A referral for physical therapy was placed. 6. Chalazion The patient has a recurrent chalazion since March. She was advised on home care, including washing the area with baby shampoo. A referral to a plastic surgeon, Dr. Caldera, will be made for further evaluation and possible intervention. 7. Hand Symptoms (Trigger Finger, Paresthesia, Raynaud's) The patient reports locking of her fingers, numbness, and tingling, primarily in the right hand, as well as color changes in the cold (Raynaud's phenomenon). An X-ray of the right hand and a nerve conduction study have been ordered to investigate the numbness and tingling. Conservative management for Raynaud's (keeping hands warm) and trigger finger (splinting) was discussed. 8. Depression Continue with counseling and therapy. Discussion Notes I discussed the patient's multiple chronic health issues and new complaints. Regarding her hand symptoms, I explained the potential diagnoses of trigger finger, carpal tunnel syndrome, and Raynaud's phenomenon, and ordered a right hand X-ray and nerve conduction study for further evaluation. For her recurrent chalazion, I recommended home care with baby shampoo and placed a referral to a plastic surgeon for definitive management. I addressed her request for a chest X-ray for lung cancer screening given her father's history and ordered it. We discussed her weight gain, and I placed referrals for physical therapy for her knees and a weight management exercise program. We had an extensive discussion about her alcohol consumption. I strongly advised her to stop drinking, explaining the updated guidelines recommending zero alcohol for patients with hypertension and detailing the severe risks, including liver failure requiring transplant and memory impairment. Finally, I confirmed her health maintenance needs, including an order for updated blood work, and arranged for her to receive her due flu and tetanus vaccinations today. Patient Instructions - Please go to the lab for blood work. - You can go for your chest X-ray and right hand X-ray at any time; no appointment is needed. - Keep your hands warm, especially in the cold, by wearing gloves. - Referrals have been placed for physical therapy, a weight management program, and a nerve test for your hand. You will be contacted to schedule these. - A referral has been sent to a plastic surgeon for your eye concern. - Use your Symbicort inhaler every day during the winter, and be sure to rinse your mouth with water after each use. - It is very important that you stop drinking alcohol due to its effects on your blood pressure, liver, and memory. - You will receive your flu shot and tetanus shot today before you leave. - Please follow up to schedule your colonoscopy. Orders: Orders XR hand RT 2V Today M79.641 - Pain in right hand Influenza [id number] Immunization Today Z23 - Encounter for immunization PT Evaluation and Treatment Today M17.0 - Bilateral primary osteoarthritis of knee NE electromyogram (EMG) Today R20.0 - Anesthesia of skin NE nerve conduction velocity Today R20.0 - Anesthesia of skin XR chest 2V Today J45.20 - Mild intermittent asthma, uncomplicated Referrals Plastic Surgery Referral H00.16 - Chalazion left eye, unspecified eyelid Medical Weight Management Referral E66.01 - Morbid (severe) obesity due to excess calories
[2025-08-22 16:22] VITALS: BP 140/74; RESP 18; BMI 40.5
--- OUTSIDE RECORDS SUMMARY | 2025-08-22 16:54 | XMS_ITS | Clinical Summary ---
Author Organization [facility] Address [address] [place] [id number] Phone Care Team Providers Care Cereal Chemist Name Role Phone Michael Melvin MD Primary Care Provider [phone] Allergies Active Allergy Reactions Criticality Noted Date Comments Penicillin Hives 01/14/2024 Medications gabapentin (NEURONTIN) 300 MG capsule Take 500 mg by mouth. 12/28/2023 Active lisinopril (PRINIVIL,ZESTR IL) 10 MG tablet Take 10 mg by mouth daily. Active traMADoL (ULTRAM) 50 mg tablet Take 50 mg by mouth every 6 (six) hours as needed for pain (specific location in comments). Active vitamin A,C & E-hrkwgk-bdenjo ls (OCUVITE) 300 mcg-200 mg-27 mg-2 mg [...] Medical Devices Not on file Insurance [facility] Care Teams Cereal Chemist Relationship Specialty Start Date End Date Michael Melvin MD [address] [place] [phone] PCP - General Internal Medicine 11/17/23 Additional Source Comments The information contained in this document represents components of the legal health record. It is not the complete legal health record.[facility]
--- OUTSIDE RECORDS SUMMARY | 2025-08-22 16:54 | XMS_ITS | Clinical Summary ---
Author Organization [facility] Address [address] [place] [address] Phone Care Team Providers Care Construction Recruiter Name Role Phone Michael Melvin MD Primary Care Provider [phone] Allergies No known active allergies Medications acetaminophen [...] PER WEEK 4 capsule 1 5 Active Active Problems Problem Noted Date Diagnosed Date PTSD (post-traumatic stress disorder) 04/30/2020 Overview (06/13/2024): 7262-1117 Osteoarthritis 04/30/2020 Overview (06/13/2024): Knees PURVI (obstructive sleep apnea) 04/30/2020 Hypertension 04/30/2020 Depression 04/30/2020 Asthma 04/30/2020 Anxiety 04/30/2020 Vitamin D deficiency 01/31/2019 Iron deficiency 01/31/2019 Encounters Date Type Department Care Team Description 07/05/2025 10:15 AM EST Office Visit Bariatric Surgery - [address] [place] [address] Sal Sow MD Class 3 severe obesity due to excess calories with body mass index (BMI) of 40.0 to 44.9 in adult, unspecified whether serious comorbidity present (CMS/[facility] V24, CMS/[facility] V28) (Primary Dx) from Last 3 Months Surgical History Surgery Date Site/Laterality Comments OTHER SURGICAL HISTORY 2000 PROCEDURE: [place] LAPS GSTR RSTCV PX W/BYP KATRINA-EN-Y LIMB [...] 50.0 to 59.9 in adult (CMS/HCC V24, CMS/[facility] V28) 01/26/2019 DX:Class 3 severe obesity due [...] PM EDT Office Visit Bariatric Surgery - [address] [place] [address] Sal Sow MD [address] [place] [phone] Health Maintenance Due Date Last Done [...] * Annual BMP Blood Test (02/16/2023) Pathologist [facility] Annual BMP Blood Test Abstracted Historical Provider HEALTH MAINTENANCE Final Result * (ABNORMAL) Lipid panel (01/26/2019) Pathologist [facility] LDL/HDL Ratio 2 0 - 4 Triglycerides 113 0 - 150 mg/dL Cholesterol 233(A) 0 - 200 mg/dL HDL 112 >=40 mg/dL LDL Cholesterol 99 0 - 100 mg/dL Blood Venous blood specimen / Unknown Historical Provider LAB BLOOD ORDERABLES Mima l Result from Last 3 Months or Most Recently Relevant to Health Maintenance Insurance [facility] Care Teams Construction Recruiter Relationship Specialty Start Date End Date Michael Melvin MD [address] [place] [address] [address] [facility] [place] [id number] PCP - General Internal Medicine 11/21/17
== END 2025-08-22 17:23 | disposition home or self-care (01) ==
LOC: HO.HMCH 16:04
PROVIDERS: PCP Internal Medicine; Visit Provider Internal Medicine
DX: I10 Essential (primary) hypertension (principal); I73.9 Peripheral vascular disease, unspecified; Z98.84 Bariatric surgery status; F33.2 Major depressive disorder, recurrent severe without psychotic features; E66.01 Morbid (severe) obesity due to excess calories; Z68.41 Body mass index [BMI] 40.0-44.9, adult; Z12.11 Encounter for screening for malignant neoplasm of colon; G47.33 Obstructive sleep apnea (adult) (pediatric); J45.20 Mild intermittent asthma, uncomplicated; M17.0 Bilateral primary osteoarthritis of knee; H00.16 Chalazion left eye, unspecified eyelid; I73.00 Raynaud's syndrome without gangrene; R20.0 Anesthesia of skin; M79.641 Pain in right hand; F10.10 Alcohol abuse, uncomplicated; Z23 Encounter for immunization

== ENCOUNTER → 2025-08-22 16:04 | Outpatient (BNVA) | payer OTHER, SELFPAY | PROVIDERS: PCP Internal Medicine; Visit Provider Internal Medicine | DX: I10 Essential (primary) hypertension (principal); I73.9 Peripheral vascular disease, unspecified; F33.2 Major depressive disorder, recurrent severe without psychotic features; E66.01 Morbid (severe) obesity due to excess calories; Z98.84 Bariatric surgery status; G47.33 Obstructive sleep apnea (adult) (pediatric); J45.20 Mild intermittent asthma, uncomplicated; M17.0 Bilateral primary osteoarthritis of knee; H00.16 Chalazion left eye, unspecified eyelid; I73.00 Raynaud's syndrome without gangrene; R20.0 Anesthesia of skin; M79.641 Pain in right hand; F10.10 Alcohol abuse, uncomplicated; Z23 Encounter for immunization | CPT/HCPCS: 90471; 90656; 99212 ==